=== PATIENT | male | born 1940 | race Caucasian/White ===

== ENCOUNTER 2019-06-13 21:12 | Emergency (ER) | payer MEDICARE ==
[2019-06-13] MEDS ORDERED: DIPH,PERTUS(ACELL)TETVAC-LF 0.5 ML VIAL IM ONE (21:52)
[2019-06-13] MEDS ORDERED: LIDOCAINE 1% INJ 10MG/ML (20 ML MDV) SQ STA (21:53)
--- NOTE | 2019-06-13 22:17 | CT ---
EXAMINATION TYPE: CT brain luisito perez DATE OF EXAM: 06/13/2019 COMPARISON: None HISTORY: Pt fall, laceration bridge of nose CT DLP: 1341.4 mGycm Automated exposure control for dose reduction was used. TECHNIQUE: CT scan of the head and cervical spine are performed without contrast. FINDINGS: There is mild cerebral cortical atrophy. There is no mass effect nor midline shift. There is no sign of intracranial hemorrhage. The calvarium is intact. There is normal alignment of the cervical vertebra. There is degenerative disc space from C3 to C7 wi th spurring of the endplates. Facet joints are intact. There is mild hypertrophic facet arthropathy. Skull base is intact. There is no evidence of a fracture. IMPRESSION: Spondylotic changes in the cervical spine. No fracture. Mild cerebral atrophy. No acute intracranial abnormality.
--- NOTE | 2019-06-13 22:25 | CT ---
EXAMINATION TYPE: CT facial bones wo con DATE OF EXAM: 06/13/2019 COMPARISON: None HISTORY: Pt fall, laceration bridge of nose CT DLP: 1341.4 mGycm Automated exposure control for dose reduction was used. TECHNIQUE: CT scan of the sinuses is performed without contrast, axial images are obtained, coronal r eformatted images are also reviewed. FINDINGS: The mandibular ring appears intact. Temporomandibular joints appear normal. The orbital mar gins are intact. There is no evidence of a blowout fracture. There is comminuted fracture the anterio r nasal bone. There is mild depression. The zygomatic arches are intact. The maxilla is intact. There is minimal mucosal thickening posterior right maxillary sinus. There is no evidence of orbital mass. There is soft tissue swelling over the frontal bone. IMPRESSION: Comminuted nasal bone fracture. Frontal scalp soft tissue swelling.
[2019-06-13] MEDS ORDERED: ACET/COD 300 MG/30 MG STARTER PACK 6 TAB BTL PO STA (23:34)
--- NOTE | 2019-06-13 23:35 | ED ---
General Adult HPI - General Chief complaint: Head Injury Stated complaint: Facial Lac Time Seen by Provider: 06/13/19 21:34 Source: patient, family, RN notes reviewed, old records reviewed Mode of arrival: ambulatory Limitations: no limitations - History of Present Illness Initial comments: 78-year-old male patient no pertinent past medical history presents to chief complaint of fall with laceration of the bridge of nose. He reports that he was walking in the dark, stumbled, fell forward hitting the bridge of his nose on a trailer hitch. Patient hasn't loss of consciousness. Patient denies any similar blood thinners. Patient denies any other complaints at this time. Denies any headache, changes in vision, neck pain. Patient does not know date of last tetanus. Systemic: Pt denies fatigue, fever/chills, rash. Pt denies weakness, night sweats, weight loss. Neuro: Pt denies headache, visual disturbances, syncope or pre-syncope. HEENT: Pt denies ocular discharge or irritation, otalgia, rhinorrhea, pharyngitis or notable lymphadenopathy. Cardiopulmonary: Pt denies chest pain, SOB, heart palpitations, dyspnea on exertion. Abdominal/GI: Pt denies abdominal pain, n/v/d. : Pt denies dysuria, burning w/ urination, frequency/urgency. Denies new onset urinary or bowel incontinence. MSK: Pt denies myalgia, loss of strength or function in extremities. Neuro: Pt denies new onset weakness, paresthesias. - Related Data Previous Rx's Medication Instructions Recorded Amoxicillin/Potassium Clav 1 each PO Q12HR 14 Days #7 tab 06/13/19 [Augmentin 875-125 Tablet] Allergies Allergy/AdvReac Type Severity Reaction Status Date / Time No Known Allergies Allergy Verified 06/13/19 21:20 Review of Systems ROS Statement: Those systems with pertinent positive or pertinent negative responses have been documented in the HPI. ROS Other: All systems not noted in ROS Statement are negative. Past Medical History Past Medical History: Diabetes Mellitus, Hypertension History of Any Multi-Drug Resistant Organisms: None Reported Past Surgical History: Adenoidectomy, Appendectomy, Cholecystectomy, Orthopedic Surgery, Tonsillectomy Additional Past Surgical History / Comment(s): eye lid surgery Past Psychological History: No Psychological Hx Reported Past Alcohol Use History: Occasional Past Drug Use History: None Reported General Exam - General Exam Comments Initial Comments: Constitutional: NAD, AOX3, Pt has pleasant affect. HEENT: NC/AT, trachea midline, neck supple, no lymphadenopathy. Posterior pha rynx non erythematous, without exudates. External ears appear normal, without discharge. Mucous membranes moist. Eyes PERRLA, EOM intact. There is no scleral icterus. No pallor noted. Cardiopulmonary: RRR, no murmurs, rubs or gallops, no JVD noted. Lungs CTAB in anterior and posterior red[place]. No peripheral edema. Abdominal exam: Abdomen soft and non-distended. Abdomen non-tender to palpation in all 4 quadrants. Bowel sounds active in LLQ. No hepatosplenomegaly. No ecchymosis Neuro: CN II-XII intact. No nuchal rigidity. No raccon eyes, no lane sign, no hemotympanum. No cervical spinal tenderness. MSK: No posterior calf tenderness bilaterally, homans sign negative bilaterally. Posterior tibialis and radial pulse +2 bilaterally. Sensation intact in upper and lower extremities. Full active ROM in upper and lower extremities, 5/5 stregnth. 2 cm laceration noted to bridge of nose. Vigorously irrigated. Approximated with 3 simple interrupted sutures. No septal hematoma. Limitations: no limitations Course Vital Signs 06/13/19 21:14 Temperature 98.5 F Pulse Rate 76 Respiratory 20 Rate Blood Pressure 187/85 O2 Sat by Pulse 95 Oximetry Procedures - Laceration Laceration #1 Consent Obtained: verbal consent Indication: laceration Site: face (bridge of nose ) Size (cm): 2 Description: linear Depth: simple, single layer Anesthetic Used: lidocaine 1% Anesthesia Technique: local infiltration Amount (mls): 2 Pre-repair: wound explored, irrigated extensively Type of Sutures: nylon Size of Sutures: 5-0 Number of Sutures: 3 Patient Tolerated Procedure: well, no complications Medical Decision Making - Medical Decision Making 78-year-old male patient no pertinent past medical history presents to chief complaint of fall with laceration of the bridge of nose. He reports that he was walking in the dark, stumbled, fell forward hitting the bridge of his nose on a trailer hitch. Patient hasn't loss of consciousness. Patient denies any similar blood thinners. Patient denies any other complaints at this time. Denies any headache, changes in vision, neck pain. Patient does not know date of last tetanus. Pt VSS, afebrile. Physical exam displayed: 2 cm laceration noted to bridge of nose. Vigorously irrigated. Approximated with 3 simple interrupted sutures. No septal hematoma. CT brain C-spine displayed no fracture, no acute intracranial abnormality. Elevated nasal bone fracture on facial bone CT. CT facial bones with comminuted nasal bone fracture, frontal scalp soft tissue swelling. Patient will be discharged with ENT follow-up tomorrow on antibiotics. Case discussed with Dr. Villalta. Disposition Clinical Impression: Nasal fracture, Laceration Disposition: HOME SELF-CARE Condition: Stable Additional Instructions: Patient to adhere to previously discussed treatment plan and will take medication(s) as directed. Patient to follow up with PCP in 1-2 days. Patient to return to ED if symptoms do not improve. Follow-up with ENT tomorrow. Take Antibiotics as directed. No nose blowing. Return to ER if condition worsens. Please return for suture removal: Hand: 7-10 days Face: 5 days Chest/abdomen: 12-14 days Extremities: 7-10 days Scalp: 7 days Eyebrow: 5-7 days Foot/sole: 12-14 days Please monitor for signs and symptoms of infection including: redness, warmth, drainage, discharge. Please return to ED if these signs or symptoms occur, new signs or symptoms develop or if condition worsens in anyway. Prescriptions: Amoxicillin/Potassium Clav [Augmentin 875-125 Tablet] 1 each PO Q12HR 14 Days #7 tab Is patient prescribed a controlled substance at d/c from ED?: No Referrals: Gloria Umaña MD [Primary Care Provider] - 1-2 days Price Gray MD [STAFF PHYSICIAN] - 1-2 days
--- NOTE | 2019-06-13 23:45 | ED ---
Disposition Clinical Impression: Nasal fracture, Laceration Disposition: HOME SELF-CARE Condition: Stable Instructions (If sedation given, give patient instructions): Nasal Fracture (ED), Laceration (ED) Additional Instructions: Patient to adhere to previously discussed treatment plan and will take medication(s) as directed. Patient to follow up with PCP in 1-2 days. Patient to return to ED if symptoms do not improve. Follow-up with ENT tomorrow. Take Antibiotics as directed. No nose blowing. Return to ER if condition worsens. Please return for suture removal: Hand: 7-10 days Face: 5 days Chest/abdomen: 12-14 days Extremities: 7-10 days Scalp: 7 days Eyebrow: 5-7 days Foot/sole: 12-14 days Please monitor for signs and symptoms of infection including: redness, warmth, drainage, discharge. Please return to ED if these signs or symptoms occur, new signs or symptoms develop or if condition worsens in anyway. Prescriptions: Amoxicillin/Potassium Clav [Augmentin 875-125 Tablet] 1 each PO Q12HR 14 Days #7 tab Is patient prescribed a controlled substance at d/c from ED?: No Referrals: Gloria Umaña MD [Primary Care Provider] - 1-2 days Price Gray MD [STAFF PHYSICIAN] - 1-2 days
[2019-06-14 00:03] VITALS: BP 171/77; PULSE 74; RESP 18; TEMP 97.7
== END 2019-06-14 00:02 | disposition home or self-care (01) ==
LOC: EC 21:12
DX: S02.2XXA Fracture of nasal bones, initial encounter for closed fracture (principal); S01.21XA Laceration without foreign body of nose, initial encounter; W01.198A Fall on same level from slipping, tripping and stumbling with subsequent striking against other object, initial encounter; Y93.01 Activity, walking, marching and hiking
CPT/HCPCS: 72125; 70486; 70450; 90715; 99284; 12011; 90471; J2001

== ENCOUNTER → 2022-04-29 | Outpatient (CLI) | payer MEDICARE ==
[2022-04-29 14:31] LABS: HCT 33.6 % (39.6-50.0); HGB 10.7 g/dL (13.0-17.0); MCH 30.7 pg (27.0-32.0); MCHC 31.8 g/dL (32.0-37.0); MCV 96.6 fL (80.0-97.0); Mean Platelet Volume 11.6 fL (9.5-12.2); NRBC Per 100 WBC 0 /100 WBCS (0.0-0.0); Platelet Count 177 X 10*3/uL (140-440); RBC 3.48 X 10*6/uL (4.40-5.60); RDW 14.5 % (11.5-14.5)
[2022-04-29 14:44] LABS: African American GFR (CKD) 49.5 (60.0-200.0); Anion Gap 9.5 mmol/L (10.00-18.00); Blood Urea Nitrogen 26.8 mg/dL (9.0-27.0); Carbon Dioxide 27.7 mmol/L (20.0-27.5); Non-African American GFR(CKD) 42.7 (60.0-200.0); Potassium 4.8 mmol/L (3.5-5.5)
== END | disposition home or self-care (01) ==
LOC: LABPAT 09:31
PROVIDERS: ATTEND Internal Medicine
DX: Z01.812 Encounter for preprocedural laboratory examination (principal); I11.0 Hypertensive heart disease with heart failure; I50.32 Chronic diastolic (congestive) heart failure; E78.2 Mixed hyperlipidemia; R06.02 Shortness of breath
CPT/HCPCS: 80051; 82565; 84520; 85027

== ENCOUNTER → 2023-01-15 | Outpatient (CLI) | payer MEDICARE ==
--- NOTE | 2023-01-15 15:26 | MR ---
EXAMINATION TYPE: MR kidney wo con DATE OF EXAM: 01/15/2023 COMPARISON: Outside renal ultrasound May 07, 2022 HISTORY: Stage 3 kidney disease, abnormal recent ultrasound Standard multiplanar, multisequence MRI departmental protocol Multiplanar, multisequence images of the abdomen focusing on the kidneys were acquired without contra st. Diffusion weighted imaging was performed. FINDINGS: Exam suboptimal as the patient has unable to hold breath for ideal imaging. Also suboptimal due to lack of IV contrast. Kidneys: Kidneys are symmetric and within normal limits in size with areas of cortical thinning seen bilaterally. There are central simple appearing thin-walled parapelvic cysts in the right kidney. No concerning solid or cystic right-sided renal mass or hydronephrosis seen on noncontrast images. Left kidney shows mild pyelocaliectasis with additional anterior partially exophytic 1.7 x 1.2 cm thin-wal led cyst. No concerning lower pole measured 2.5 cm solid or cystic mass identified on this study. Mil d to moderate perinephric fluid bilaterally is noted, this is nonspecific but presumed product of chr onic medical renal disease. Other: Slightly elevated right hemidiaphragm. Gallbladder not seen and presumed surgically absent. Th e liver, spleen, pancreas, and both adrenal glands appear within normal limits. No abnormal small or large bowel dilatation. Some diverticula scattered throughout the colon are present. No greater than 3.0 cm AAA. Multilevel spurring in the thoracolumbar spine is seen IMPRESSION: Persistent mild left-sided hydronephrosis. Evidence of chronic medical renal disease rede monstrated. No concerning solid or cystic mass between 2 to 3 cm with particular attention to the low er pole left kidney at the area of concern on outside ultrasound.
== END | disposition home or self-care (01) ==
LOC: RADMRIMAIN 12:35
PROVIDERS: ATTEND Urology
DX: D41.02 Neoplasm of uncertain behavior of left kidney (principal); N13.30 Unspecified hydronephrosis; N28.89 Other specified disorders of kidney and ureter
CPT/HCPCS: 74181

== ENCOUNTER → 2023-07-15 | Outpatient (CLI) | payer MEDICARE ==
--- NOTE | 2023-07-15 15:54 | US ---
EXAMINATION TYPE: US kidneys/renal and bladder DATE OF EXAM: 07/15/2023 COMPARISON: NONE CLINICAL INDICATION: Male, 82 years old with history of N28.1 CYST OF KIDNEY; History of renal cyst EXAM MEASUREMENTS: Right Kidney: 10.1 x 4.7 x 4.7 cm Left Kidney: 12.0 x 6.0 x 4.6 cm Right Kidney: parapelvic cystic lesions Left Kidney: parapelvic cystic lesions Bladder: not fully distended Bilateral Jets seen: no IMPRESSION: Bilateral peripelvic cysts. Hydronephrosis is not evident.
== END | disposition home or self-care (01) ==
LOC: RADUSWWP 15:05
PROVIDERS: ATTEND Urology
DX: N28.1 Cyst of kidney, acquired (principal)
CPT/HCPCS: 76770

== ENCOUNTER 2023-07-20 18:23 | Inpatient (IN) | payer MEDICARE ==
--- NOTE | 2023-07-20 18:43 | XR ---
EXAMINATION TYPE: XR chest 1V portable DATE OF EXAM: 07/20/2023 6:37 PM CLINICAL INDICATION:Male, 82 years old with history of stemi; PH[facility] COMPARISON: None TECHNIQUE: XR chest 1V portable Frontal view of the chest. FINDINGS: Lungs/Pleura: Elevated right diaphragm. There is flattening of the diaphragm with increased lucency o f the lungs. No evidence of pneumothorax, pleural effusion or focal consolidation. Pulmonary vascularity: Unremarkable. Heart/mediastinum: Cardiomediastinal silhouette is enlarged and stable. Atherosclerotic calcificatio ns are seen in the aorta. Musculoskeletal: Degenerative changes of the shoulder joints. IMPRESSION: 1. Cardiomegaly. 2. Elevated right diaphragm with associated atelectasis. 3. COPD changes.
[2023-07-20] MEDS ORDERED: HEPARIN SODIUM 1,000 UN/ML (10ML VL) ONE (18:47)
[2023-07-20] MEDS ORDERED: VERAPAMIL 2.5 MG/ML 2 ML AMP ONE (18:47)
[2023-07-20] MEDS ORDERED: LIDOCAINE 1% INJ 10MG/ML (20 ML MDV) ONE (18:50)
[2023-07-20] MEDS ORDERED: HEPARIN SODIUM 1,000 UN/ML (10ML VL) IV ONE (19:09)
--- NOTE | 2023-07-20 19:16 | CT ---
EXAMINATION TYPE: CT brain cspine wo con CT DLP: 1392.1 mGycm, Automated exposure control for dose reduction was used. DATE OF EXAM: 07/20/2023 7:11 PM COMPARISON: 06/13/2019 CLINICAL INDICATION:Male, 82 years old with history of head injury; Abnormal EKG, fall with head inju ry, TECHNIQUE: Brain: Multiple axial CT images of the brain were obtained without IV contrast. Cspine: Axial CT images from the skull base to the inferior aspect of T2 we obtained without intraven ous contrast. Coronal and sagittal reformatted images were also reviewed. FINDINGS: Brain: Extra-axial spaces: No abnormal extra-axial fluid collections. Ventricular system: Within normal limits Cerebral parenchyma: Cerebral atrophy. No acute intraparenchymal hemorrhage or mass effect. The gardiner -white junction is well differentiated. Scattered hypoattenuating areas are seen within the white mat ter. Cerebellum: Unremarkable. Mass effect: No evidence of midline shift. Intracranial vasculature: Atherosclerotic calcifications of the intracranial vessels. Soft tissues: Normal. Calvarium/osseous structures: No depressed skull fracture. Paranasal sinuses and mastoid air cells: Clear. Visualized orbits: Bilateral aphakia Cervical spine: Fracture: None. Osseous structures: Multilevel degenerative disc disease changes with endplate spurring and disc oste ophyte complex's. Vertebral alignment: Within normal limits. Spinal canal/Neural Foramina: Disc osteophyte complexes at C3-C7 with at least mild spinal canal sten osis. Facet joint uncovertebral joint arthropathy scattered throughout the cervical spine with varyin g degrees of neural foraminal stenosis. Neck soft tissues: Prevertebral soft tissues are within normal limits. IMPRESSION: 1. No acute intracranial process. 2. Nonspecific white matter changes, likely secondary to chronic small vessel ischemic disease. 3. No evidence of cervical spine fracture. 4. Mild to moderate multilevel degenerative disc disease.
[2023-07-20 19:22] LABS: Partial Thromboplastin Time 25.5 sec (22.0-30.0); Prothrombin Time 11.2 sec (10.0-12.5)
[2023-07-20 19:25] LABS: ALT 18 U/L (4-49); AST 22 U/L (17-59); African American GFR (CKD) 59 (>60 ml/min/1.73 sqM); Albumin 3.6 g/dL (3.5-5.0); Alkaline Phosphatase 77 U/L (38-126); Anion Gap 11 mmol/L; Blood Urea Nitrogen 19 mg/dL (9-20); Calcium 8.5 mg/dL (8.4-10.2); Carbon Dioxide 23 mmol/L (22-30); Chloride 103 mmol/L (98-107); Glucose 167 mg/dL (74-99); Magnesium 1.7 mg/dL (1.6-2.3); Non-African American GFR(CKD) 51 (>60 ml/min/1.73 sqM); Potassium 3.6 mmol/L (3.5-5.1); Sodium 137 mmol/L (137-145); Total Bilirubin 1.1 mg/dL (0.2-1.3); Total Protein 6.3 g/dL (6.3-8.2)
--- NOTE | 2023-07-20 19:34 | P.CRDCN ---
History of Present Illness Consult date: 07/20/23 History of present illness: History of Present Illness: The patient is an 82-year-old male with a known history of diabetes and hyperlipidemia, history of CAD who presented with an episode of weakness. He was walking back from his garage when he became suddenly weak, eased himself down to the ground,, hit his head. EMS was called and the patient was brought to the emergency room. He had no chest discomfort, he was hypoxemic. He did not feel any palpitations. He recently had some cough and chills. Apparently his granddaughter had an upper respiratory infection. In the ER his EKG showed sinus mechanism with right bundle branch block and mild ST segment changes anteriorly, subsequent EKG shows right bundle branch block with no significant ST segment changes. Patient is laying supine, comfortable, denied any chest discomfort. When he had the cardiac catheterization in April [address] Kelly he was found to have heavily calcified coronary artery disease with 40% left main, mid LAD 80%, 40% left circumflex with heavily calcified diffuse disease in the RCA with area of stenosis up to 90% and occluded PDA. Medical therapy was recommended. Patient has done relatively well since that time and has been stable. In the emergency room his chest x-ray showed elevated right hemidiaphragm with atelectasis. Computed tomography scan of the head showed no acute bleeding. The patient has a history of hypertension, hyperlipidemia and diabetes, he is a nonsmoker. Medications: Lotrel 1040 milligrams daily Actos, metoprolol succinate 25 mg daily, Lipitor 10 mg daily, aspirin once a day, Lasix 20 mg daily, omeprazole, Flomax, metformin. Review of Systems: Respiratory: He has a cough and mild fever at home GI: No nausea or vomiting . No history of peptic ulcer disease. No recent GI bleed. : No hematuria or dysuria. Nervous System: No stroke or seizure. Physical Examination: 82-year-old male, alert and oriented no apparent distress,Blood pressure 140/90, Heart rate 60 Head: Normocephalic. Eyes: Sclerae nonicteric. Neck: Good carotid upstroke, no bruit, no jugular venous distention. Lungs: Decreased breath sounds at the right base, no wheezes Heart: Regular rate and rhythm, S1-S2, no S3, no rub. Systolic ejection murmur. Abdomen: Soft nontender, positive bowel sounds no organomegaly. Extremities: No edema, intact distal pulses. Varicosity Labs: Pending EKG: Right bundle branch block with left axis deviation and mild ST segment elevation anteriorly that resolved on subsequent EKG Impression: 1. Episode of weakness his hypoxemia and elevated right hemidiaphragm, possible atelectasis, rule out pneumonia 2. Abnormal EKG with no associated chest discomfort 3. Known history of CAD with severe coronary artery calcifications, felt not to be a good candidate for percutaneous revascularization 4. History of diabetes 5. History of hypertension 6. History of hyperlipidemia Plan: 1. I discussed the findings in detail with the patient and his family as well as with the emergency room physician. At this time in view of the fact that his EKG subsequently showed only right bundle branch block that was noted in the past with no associated chest discomfort I would recommend to continue medical therapy and observe for any symptoms 2. Initiate heparin 3. Obtain an echocardiogram Doppler 4. Serial enzymes 5. Depending on his progress further recommendations will be made, thank you for this consult we will follow with you. Past Medical History Past Medical History: Diabetes Mellitus, Hypertension Additional Past Medical History / Comment(s): POSSIBLE CVA 2007-NO DEFICITS History of Any Multi-Drug Resistant Organisms: None Reported Past Surgical History: Adenoidectomy, Appendectomy, Cholecystectomy, Orthopedic Surgery, Tonsillectomy Additional Past Surgical History / Comment(s): eye lid surgery Past Anesthesia/Blood Transfusion Reactions: No Reported Reaction Past Psychological History: No Psychological Hx Reported Smoking Status: Former smoker Past Alcohol Use History: Occasional Past Drug Use History: None Reported - Past Family History Brother(s) Family Medical History: Cancer Medications and Allergies Home Medications Medication Instructions Recorded Confirmed Type Ascorbic Acid [Vitamin C] 500 mg PO DAILY 04/29/22 03/10/23 History Aspirin [Adult Low Dose Aspirin EC] 81 mg PO DAILY 04/29/22 03/10/23 History Atorvastatin [Lipitor] 10 mg PO HS 04/29/22 03/10/23 History Cranberry Fruit Extract [Cranberry] 1,500 mg PO DAILY 04/29/22 03/10/23 History Cyanocobalamin (Vitamin B-12) 5,000 mcg PO DAILY 04/29/22 03/10/23 History [Vitamin B-12] Furosemide [Lasix] 20 mg PO DAILY 04/29/22 03/10/23 History Gabapentin 300 mg PO TID 04/29/22 03/10/23 History Glimepiride [Amaryl] 2 mg PO [id number] 04/29/22 03/10/23 History Magnesium Citrate. 100 mg PO DAILY 04/29/22 03/10/23 History Metoprolol Succinate (ER) [Toprol 25 mg PO DAILY 04/29/22 03/10/23 History Xl] Omeprazole 20 mg PO BID 04/29/22 03/10/23 History Pioglitazone [Actos] 15 mg PO DAILY 04/29/22 03/10/23 History Potassium Gluconate [Potassium 99 mg PO DAILY 04/29/22 03/10/23 History Gluconate ER] Tamsulosin [Flomax] 0.8 mg PO HS 04/29/22 03/10/23 History Vitamin B Complex 1 each PO DAILY 04/29/22 03/10/23 History amLODIPine BESYLATE/BENAZEPRIL 1 cap PO DAILY 04/29/22 03/10/23 History [amLODIPine BESYLATE/BENAZEPRIL 10-40 mg] metFORMIN HCL 1,000 mg PO BID 04/29/22 03/10/23 History Allergies Allergy/AdvReac Type Severity Reaction Status Date / Time No Known Allergies Allergy Verified 07/20/23 18:31 Physical Exam Vitals: Vital Signs Temp Pulse Pulse Resp BP Pulse Ox 07/20/23 19:13 63 18 140/97 98 07/20/23 19:08 63 18 148/104 96 07/20/23 19:03 63 18 129/79 98 07/20/23 18:58 70 18 130/76 97 07/20/23 18:53 64 18 138/68 96 07/20/23 18:48 70 18 128/76 96 07/20/23 18:46 71 07/20/23 18:43 70 18 95 07/20/23 18:39 67 18 117/91 96 07/20/23 18:34 67 18 132/102 95 07/20/23 18:25 97.0 F L 65 18 88 L Intake and Output 07/20/23 07/20/23 07/20/23 06:59 14:59 22:59 Other: Weight 99.79 kg Results Coagulation 07/20/23 Range/Units 18:44 PT 11.2 (10.0-12.5) sec APTT 25.5 (22.0-30.0) sec Current Medications Generic Name Dose Route Start Last Admin Trade Name Freq PRN Reason Stop Dose Admin Heparin Sodium (Porcine) 0 unit 07/20/23 19:09 Heparin Sodium 1,000 Un/Ml (10ml Vl) IV PER PROTOCOL PRN Low PTT Protocol Heparin Sodium/Sodium Chloride 250 mls @ 10 mls/hr 07/20/23 19:15 25,000 unit/ Sodium Chloride IV .Q24H [facility] Protocol Intake and Output 07/20/23 07/20/23 07/20/23 06:59 14:59 22:59 Other: Weight 99.79 kg Patient Weight 07/21/23 06:59 Weight 99.79 kg
--- NOTE | 2023-07-20 19:42 | ED ---
General Adult HPI - General Chief complaint: Arrhythmia/Palpitations Stated complaint: STEMI Time Seen by Provider: 07/20/23 18:25 Source: patient Mode of arrival: EMS Limitations: no limitations - History of Present Illness Initial comments: 82-year-old male with past medical history of coronary artery disease, diabetes, hypertension who presents to the emergency department after he had a fall at home. EMS states that the patient was ambulating from the garage into the house when he ended up having an episode of weakness. His legs gave out from beneath him and he fell to the floor hitting his head on the carpet. He denies completely losing consciousness. He was unable to get himself up and therefore he called his family. Family is unaware how long he had been on the ground but they do feel as if it was for an extended period of time. EMS found the patient to have oxygen saturation saturations of 73%. They completed an EKG which looked like a STEMI. Patient has no complaints of chest pain. He does report to some shortness of breath. States that he started having some cold-like symptoms on Friday. States that he does have sick contacts with similar symptoms. He does have history of coronary disease. Heart cath in April 2020 demonstrated significant disease without any stent placement. Patient denies any lower from the edema. No history of heart failure. No other alleviating, precipitating or modifying factors - Related Data Home Medications Medication Instructions Recorded Confirmed Atorvastatin [Lipitor] 10 mg PO HS 04/29/22 07/20/23 Furosemide [Lasix] 20 mg PO DAILY 04/29/22 07/20/23 Gabapentin 300 mg PO TID 04/29/22 07/20/23 Glimepiride [Amaryl] 2 mg PO DAILY 04/29/22 07/20/23 Metoprolol Succinate (ER) [Toprol 25 mg PO DAILY 04/29/22 07/20/23 Xl] Omeprazole 20 mg PO BID 04/29/22 07/20/23 Pioglitazone [Actos] 15 mg PO DAILY 04/29/22 07/20/23 Tamsulosin [Flomax] 0.8 mg PO HS 04/29/22 07/20/23 amLODIPine BESYLATE/BENAZEPRIL 1 cap PO DAILY 04/29/22 07/20/23 [amLODIPine BESYLATE/BENAZEPRIL 10-40 mg] metFORMIN HCL 1,000 mg PO BID 04/29/22 07/20/23 Dulaglutide [Trulicity] 1.5 mg SQ RIDLEY 07/20/23 07/20/23 Insulin Glargine,Hum.rec.anlog 6 units SQ DAILY@1700 07/20/23 07/20/23 [Lantus Solostar Pen] traZODone HCL [Desyrel] 50 mg PO HS PRN 07/20/23 07/20/23 Allergies Allergy/AdvReac Type Severity Reaction Status Date / Time No Known Allergies Allergy Verified 07/20/23 20:02 Review of Systems ROS Statement: Those systems with pertinent positive or pertinent negative responses have been documented in the HPI. ROS Other: All systems not noted in ROS Statement are negative. Past Medical History Past Medical History: Diabetes Mellitus, Hypertension Additional Past Medical History / Comment(s): POSSIBLE CVA 2007-NO DEFICITS History of Any Multi-Drug Resistant Organisms: None Reported Past Surgical History: Adenoidectomy, Appendectomy, Cholecystectomy, Orthopedic Surgery, Tonsillectomy Additional Past Surgical History / Comment(s): eye lid surgery Past Anesthesia/Blood Transfusion Reactions: No Reported Reaction Past Psychological History: No Psychological Hx Reported Smoking Status: Former smoker Past Alcohol Use History: Occasional Past Drug Use History: None Reported - Past Family History Brother(s) Family Medical History: Cancer General Exam Limitations: no limitations General appearance: alert, in no apparent distress Head exam: Present: atraumatic, normocephalic, normal inspection Eye exam: Present: normal appearance, PERRL, EOMI. Absent: scleral icterus, conjunctival injection, periorbital swelling ENT exam: Present: normal exam, mucous membranes moist Neck exam: Present: normal inspection. Absent: tenderness, meningismus, lymphadenopathy Respiratory exam: Present: normal lung sounds bilaterally. Absent: respiratory distress, wheezes, rales, rhonchi, stridor Cardiovascular Exam: Present: regular rate, normal rhythm, normal heart sounds. Absent: systolic murmur, diastolic murmur, rubs, gallop, clicks GI/Abdominal exam: Present: soft, normal bowel sounds. Absent: distended, tenderness, guarding, rebound, rigid Extremities exam: Present: normal inspection, full ROM, normal capillary refill. Absent: tenderness, pedal edema, joint swelling, calf tenderness Back exam: Present: normal inspection Neurological exam: Present: alert, oriented X3, CN II-XII intact Psychiatric exam: Present: normal affect, normal mood Skin exam: Present: warm, dry, intact, normal color. 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 ] Respiratory 18 18 Rate Blood Pressure 128/76 O2 Sat by Pulse 95 96 Oximetry Fraction of Inspired Oxygen (FIO2) 07/20/23 07/20/23 07/20/23 18:53 18:58 19:03 Temperature Pulse Rate 64 70 63 Pulse Rate [ [employer] Professor ] Respiratory 18 18 18 Rate Blood Pressure 138/68 130/76 129/79 O2 Sat by Pulse 96 97 98 Oximetry Fraction of Inspired Oxygen (FIO2) 07/20/23 07/20/23 07/20/23 19:08 19:13 20:00 Temperature Pulse Rate 63 63 75 Pulse Rate [ [employer] Professor ] Respiratory 18 18 22 Rate Blood Pressure 148/104 140/97 141/71 O2 Sat by Pulse 96 98 93 L Oximetry Fraction of Inspired Oxygen (FIO2) 07/20/23 07/20/23 07/21/23 20:45 22:00 00:41 Temperature Pulse Rate 56 L 60 Pulse Rate [ [employer] Professor ] Respiratory 16 17 Rate Blood Pressure 145/71 139/74 O2 Sat by Pulse 97 97 Oximetry Fraction of 100 Inspired Oxygen (FIO2) 07/21/23 07/21/23 07/21/23 01:00 01:10 02:00 Temperature 97.4 F L Pulse Rate 54 L 54 L 40 L Pulse Rate [ [employer] Professor ] Respiratory 28 H 18 15 Rate Blood Pressure 143/92 128/73 87/50 O2 Sat by Pulse 94 L 93 L 97 Oximetry Fraction of 100 Inspired Oxygen (FIO2) - Reevaluation(s) Reevaluation #1: WESTON Matthews - ICU aware 07/20/23 22:35 Medical Decision Making - Medical Decision Making Was pt. sent in by a medical professional or institution (MIRIAM Santiago, BOX REPAIRER, urgent care, hospital, or senior living...) When possible be specific @ -No Did you speak to anyone other than the patient for history (EMS, parent, family, police, friend...)? What history was obtained from this source @ -EMS provide history Did you review nursing and triage notes (agree or disagree)? Why? @ -I reviewed and agree with nursing and triage notes Were old charts reviewed (outside hosp., previous admission, EMS record, old EKG, old radiological studies, urgent care reports/EKG's, senior living records)? Report findings @ -I reviewed patient's heart cath from April 2022 Differential Diagnosis (chest pain, altered mental status, abdominal pain women, abdominal pain men, vaginal bleeding, weakness, fever, dyspnea, syncope, headache, dizziness, GI bleed, back pain, seizure, CVA, palpatations, mental health, musculoskeletal)? @ -Differential Dyspnea: Coronary syndrome, arrhythmia, tamponade, asthma, COPD, pulmonary embolism, pneumonia, pneumothorax, pulmonary effusion, anaphylaxis, diabetic ketoacidosis, flailed chest, pulmonary contusion, diaphragmatic rupture, anemia, neuromusc ular, this is not meant to be an all-inclusive list. EKG interpreted by me (3pts min.). @ - EKG completed at 1829 demonstrates sinus rhythm with a first-degree block. Rate of 64. VA interval 222. QRS 154. QTC 507. ST elevation in V2 through V5, lead 2 and aVF Repeat EKG done at 191 demonstrates sinus rhythm with a rate of 62. QRS 161. QTC 488. ST has normalized. Right bundle-branch block X-rays interpreted by me (1pt min.). @ -Yes and demonstrates elevated right hemidiaphragm with possible right lower lobe infiltrate CT interpreted by me (1pt min.). @ -Yes and does not demonstrate a PE. Concerning for congestive heart failure U/S interpreted by me (1pt. min.). @ -None done What testing was considered but not performed or refused? (CT, X-rays, U/S, labs)? Why? @ -None What meds were considered but not given or refused? Why? @ -None Did you discuss the management of the patient with other professionals (professionals i.e. MIRIAM Santiago, BOX REPAIRER, lab, RT, psych nurse, social science research assistant, certified surgical first assistant, teacher, gunnery/ordnance officer, high risk case manager)? Give summary @ -Spoke with Dr. Edgar who does present to the emergency department to cezar luate the patient. I also spoke with Byron from ICU Was smoking cessation discussed for >3mins.? @ -No Was critical care preformed (if so, how long)? @ -yes, 45 minutes for stemi activation and management Were there social determinants of health that impacted care today? How? (Homelessness, low income, unemployed, alcoholism, drug addiction, transportation, low edu. Level, literacy, decrease access to med. care, group home, rehab)? @ -No Was there de-escalation of care discussed even if they declined (Discuss DNR or withdrawal of care, Hospice)? DNR status @ -No What co-morbidities impacted this encounter? (DM, HTN, Smoking, COPD, CAD, Cancer, CVA, ARF, Chemo, Hep., AIDS, mental health diagnosis, sleep apnea, morbid obesity)? @ -Coronary artery disease Was patient admitted / discharged? Hospital course, mention meds given and route, prescriptions, significant lab abnormalities, going to OR and other pertinent info. @ -Upon arrival patient was placed into trauma 2. Prehospital EKG had been used to activate a STEMI. Evaluating the patient he is hypoxic on room air at 85%. He is placed on 6 L nasal cannula and remains 89%. He is placed on a nonrebreather and saturates 94%. 12-lead EKG was obtained which continues to demonstrate anterior lateral STEMI. He did receive 4 chewable aspirins by EMS. He denies any chest pain. Labs were conducted. Portable chest x-ray was performed. Dr. Edgar does arrive to the emergency department and evaluates the patient. He does recommend heparinizing the patient. As the patient did fall and hit his head he does go for a CT of his head before this. CT is negative for acute process. Heparin was started. Dr. Edgar requests another EKG. He then determinanes that the patient does not need an immediate cath at this time. Recommends admission with cardiology consultation and placement in the ICU. Laboratory studies are reviewed. He is Covid positive. CT was performed which demonstrates possible infiltrate with pulmonary vascular congestion. He was given a dose of Lasix as well as antibiotics. Patient admitted to the ICU. Spoke with Byron Leary from ICU for admission Undiagnosed new problem with uncertain prognosis? @ -yes Drug Therapy requiring intensive monitoring for toxicity (Heparin, Nitro, Insulin, Cardizem)? @ -No Were any procedures done? @ -No Diagnosis/symptom? @ -acute hypoxic resp failure, STEMI, acute covid infection, fall, blunt head trauma Acute, or Chronic, or Acute on Chronic? @ -Acute Uncomplicated (without systemic symptoms) or Complicated (systemic symptoms)? @ -complicated Side effects of treatment? @ -No Exacerbation, Progression, or Severe Exacerbation? @ -No Poses a threat to life or bodily function? How? (Chest pain, [place], [place], pneumonia, PE, COPD, DKA, ARF, appy, cholecystitis, CVA, Diverticulitis, Homicidal, Suicidal, threat to staff... and all critical care pts) @ -yes- patient presents with stemi changes - Lab Data Result diagrams: 07/20/23 18:44 07/20/23 18:44 Lab Results 07/20/23 07/20/23 07/20/23 Range/Units 18:44 18:44 18:44 WBC 6.8 (3.8-10.6) k/uL RBC 3.77 L (4.30-5.90) m/uL Hgb 11.9 L (13.0-17.5) gm/dL Hct 35.8 L (39.0-53.0) % MCV 94.9 (80.0-100.0) fL MCH 31.6 (25.0-35.0) pg MCHC 33.3 (31.0-37.0) g/dL RDW 13.9 (11.5-15.5) % Plt Count 125 L (150-450) k/uL MPV 9.8 Neutrophils % 79 % Lymphocytes % 9 % Monocytes % 9 % Eosinophils % 0 % Basophils % 0 % Neutrophils # 5.3 (1.3-7.7) k/uL Lymphocytes # 0.6 L (1.0-4.8) k/uL Monocytes # 0.6 (0-1.0) k/uL Eosinophils # 0.0 (0-0.7) k/uL Basophils # 0.0 (0-0.2) k/uL PT 11.2 (10.0-12.5) sec INR 1.0 (<1.2) APTT 25.5 (22.0-30.0) sec Sodium 137 (137-145) mmol/L Potassium 3.6 (3.5-5.1) mmol/L Chloride 103 (98-107) mmol/L Carbon Dioxide 23 (22-30) mmol/L Anion Gap 11 mmol/L BUN 19 (9-20) mg/dL Creatinine 1.29 H (0.66-1.25) mg/dL Est GFR (CKD-EPI)AfAm 59 (>60 ml/min/1.73 sqM) Est GFR (CKD-EPI)NonAf 51 (>60 ml/min/1.73 sqM) Glucose 167 H (74-99) mg/dL Calcium 8.5 (8.4-10.2) mg/dL Magnesium 1.7 (1.6-2.3) mg/dL Total Bilirubin 1.1 (0.2-1.3) mg/dL AST 22 (17-59) U/L ALT 18 (4-49) U/L Alkaline Phosphatase 77 (38-126) U/L Troponin I (0.000-0.034) ng/mL NT-Pro-B Natriuret Pep 1800 pg/mL Total Protein 6.3 (6.3-8.2) g/dL Albumin 3.6 (3.5-5.0) g/dL Coronavirus (PCR) (Not Detectd) 07/20/23 07/20/23 07/20/23 Range/Units 18:44 20:50 21:35 WBC (3.8-10.6) k/uL RBC (4.30-5.90) m/uL Hgb (13.0-17.5) gm/dL Hct (39.0-53.0) % MCV (80.0-100.0) fL MCH (25.0-35.0) pg MCHC (31.0-37.0) g/dL RDW (11.5-15.5) % Plt Count (150-450) k/uL MPV Neutrophils % % Lymphocytes % % Monocytes % % Eosinophils % % Basophils % % Neutrophils # (1.3-7.7) k/uL Lymphocytes # (1.0-4.8) k/uL Monocytes # (0-1.0) k/uL Eosinophils # (0-0.7) k/uL Basophils # (0-0.2) k/uL PT (10.0-12.5) sec INR (<1.2) APTT (22.0-30.0) sec Sodium (137-145) mmol/L Potassium (3.5-5.1) mmol/L Chloride (98-107) mmol/L Carbon Dioxide (22-30) mmol/L Anion Gap mmol/L BUN (9-20) mg/dL Creatinine (0.66-1.25) mg/dL Est GFR (CKD-EPI)AfAm (>60 ml/min/1.73 sqM) Est GFR (CKD-EPI)NonAf (>60 ml/min/1.73 sqM) Glucose (74-99) mg/dL Calcium (8.4-10.2) mg/dL Magnesium (1.6-2.3) mg/dL Total Bilirubin (0.2-1.3) mg/dL AST (17-59) U/L ALT (4-49) U/L Alkaline Phosphatase (38-126) U/L Troponin I 0.082 H* 1.810 H* (0.000-0.034) ng/mL NT-Pro-B Natriuret Pep pg/mL Total Protein (6.3-8.2) g/dL Albumin (3.5-5.0) g/dL Coronavirus (PCR) Detected A (Not Detectd) Disposition Clinical Impression: STEMI (ST elevation myocardial infarction), Hypoxia Disposition: ADMITTED IP TO THIS HOSP Condition: Serious Is patient prescribed a controlled substance at d/c from ED?: No Time of Disposition: 22:07 Decision to Admit Reason: Admit from EC Decision Date: 07/20/23 Decision Time: 22:08
[2023-07-20 19:55] LABS: Basophils % (A) 0 %; Eosinophils % (A) 0 %; HCT 35.8 % (39.0-53.0); HGB 11.9 gm/dL (13.0-17.5); Lymphocytes # (A) 0.6 k/uL (1.0-4.8); Lymphocytes % (A) 9 %; MCH 31.6 pg (25.0-35.0); MCHC 33.3 g/dL (31.0-37.0); MCV 94.9 fL (80.0-100.0); Mean Platelet Volume 9.8; Monocytes # (A) 0.6 k/uL (0-1.0); Monocytes % (A) 9 %; Neutrophils # (A) 5.3 k/uL (1.3-7.7); Neutrophils % (A) 79 %; Platelet Count 125 k/uL (150-450); RBC 3.77 m/uL (4.30-5.90); RDW 13.9 % (11.5-15.5); WBC 6.8 k/uL (3.8-10.6)
[2023-07-20] MEDS: HEPARIN SOD,PORK IN 0.45% NACL 25,000 UNIT in 0.45% NACL 1 250ML.BAG IV SCH (20:49)
[2023-07-20] MEDS ORDERED: lisinopriL 20 MG TAB PO SCH (21:00)
[2023-07-20] MEDS ORDERED: METOPROLOL TARTRATE 25 MG TAB PO SCH (21:00)
[2023-07-20] MEDS: ATORVASTATIN 40 MG TAB PO SCH (21:36)
[2023-07-20] MEDS ORDERED: AZITHROMYCIN 500 MG in SODIUM CHLORIDE 0.9% 250 ML IVPB STA (21:53)
[2023-07-20] MEDS ORDERED: PNEUMONIA PROTOCOL UTILIZED 1 EACH MISC PO PRN (21:53)
--- NOTE | 2023-07-20 22:01 | CT ---
EXAMINATION TYPE: CT chest angio for PE CT DLP: 454.3 mGycm, Automated exposure control for dose reduction was used. DATE OF EXAM: 07/20/2023 9:27 PM COMPARISON: Chest radiograph from same day. \ CLINICAL INDICATION:Male, 82 years old with history of hypoxia; SOB, hypoxia TECHNIQUE/CONTRAST: CTA scan of the thorax is performed with IV Contrast, patient injected with 70ml mL of Isovue 370, UT P images are created and reviewed these are created on a separate workstation.. FINDINGS: Pulmonary Artery: There is no evidence for a filling defect within the pulmonary vasculature to sugge st acute pulmonary embolism. The pulmonary artery is of normal size. Lungs/Pleura: Intralobular septal thickening. Low lung volumes are present. Airway: There are a few areas that are opacified in the area of consolidation in the right. Heart: The heart is enlarged for size is mitral valve annular cusp patient's. Large severe coronary a rtery calcifications. Vasculature: No evidence of aortic aneurysm. Mediastinum: No gross evidence of adenopathy. Small hiatal hernia. Musculoskeletal: No acute osseous abnormalities, bridging calcifications along the anterior longitudi nal ligament. Soft Tissues: Unremarkable. Lower neck: No significant findings. Upper Abdomen: The gallbladder surgically absent. IMPRESSION: 1. No evidence of pulmonary embolism. 2. Low lung volumes with pulmonary vascular congestion and cardiomegaly, correlate with serum BNP fo r congestive heart failure. 3. Right-sided consolidation changes thought to represent atelectasis. Possibly secondary to retaine d secretions. 4. Cardiomegaly with moderate to severe coronary artery atherosclerosis. 5. Small hiatal hernia. 6. Diffuse idiopathic skeletal hyperostosis.
[2023-07-20 22:23] LABS: NT-Pro-B-Type Natriuretic Pept 1800 pg/mL
[2023-07-21 00:21] LABS: Glucose,Whole Blood 221 mg/dL (70-110)
[2023-07-21 00:38] LABS: Glucose,Whole Blood 220 mg/dL (70-110)
[2023-07-21] MEDS ORDERED: DEXTROSE 50% SYRINGE 50 ML IVP PRN ×2 (00:38)
[2023-07-21] MEDS ORDERED: FUROSEMIDE 10 MG/ML 4 ML VIAL IV STA (00:39)
--- NOTE | 2023-07-21 02:44 | P.CNPUL ---
History of Present Illness Consult date: 07/21/23 Requesting physician: aMnsi Anthony Reason for consult: dyspnea Chief complaint: Weakness, assisted fall, shortness of breath History of present illness: I am seeing this patient in new consultation today 07/21/2023 in the intensive care unit after he was found to be short of breath and hypoxic while in the emergency room. He did test positive for COVID-19. He was also noted to have mild ST elevation in anterior leads on arrival. Patient was started on a heparin infusion, and admitted to the intensive care unit. Patient is an 82-year-old white male with past medical history significant for multivessel coronary artery disease, hypertension, hyperlipidemia, diabetes mellitus. While at home yesterday, he had an assisted fall to the ground. He states that he's been very weak over the last couple days. He states that his legs just "gave out". Denies losing consciousness. Since , he has progressively become more short of breath. Denies history of pulmonary disease. Admits associated cough with white sputum, chest congestion. Denies fevers, chills, wheezing, chest pain. States that his granddaughter did have a cold recently. He did test positive for COVID-19 on arrival. He is not vaccinated for COVID. He is currently lying in bed, on a 15 L nonrebreather, in no acute distress. He is hypoxic with an SpO2 of 86%. Chest CTA was negative for pulmonary embolism. It did show low lung volumes with pulmonary vascular congestion and cardiomegaly. There was also a right hemidiaphragm and right lower lobe infiltrate thought to represent atelectasis, however, superimposed pneumonia is not excluded. NT proBNP was 1800. Troponins elevated at 0.082 and 1.8 so far. EKG changes initially showed mild ST elevation in anterior leads, which improved with subsequent EKGs. There was also a right bundle-branch. Patient denies ever having any chest pain. He was started on a heparin infusion per protocol in the emergency room. Cardiology has evaluated the patient, and has elected medical management at this time. Most recent echocardiogram was from over 1 year ago and showed a preserved ejection fraction of 50-55% and moderate mitral regurgitation. CBC on arrival showed a WBC count of 6.8, hemoglobin 11.9, hematocrit 35.8, platelets 125. Baseline APTT is 25. CMP shows sodium 137, potassium 3.6, chloride 103, serum bicarbonate 23, BUN 19, creatinine 1.29, glucose 167. LFTs not elevated. Patient has been afebrile. Empirically started on a combination of azithromycin and Rocephin. Procalcitonin level ordered. CT of the brain and C-spine did not show any acute intracranial process or evidence of C-spine fracture. Patient will be monitored in the intensive care unit. Review of Systems REVIEW OF SYSTEMS: CONSTITUTIONAL: Denies any recent significant weight loss or weight gain. Denies fevers. EYES: Denies change in vision. EARS, NOSE, MOUTH, THROAT: Denies headaches, denies sore throat. CARDIOVASCULAR: Denies chest pain, palpitations or syncopal episodes. RESPIRATORY: See HPI GASTROINTESTINAL: Denies change in appetite, abdominal pain, nausea and vomiting, or diarrhea GENITOURINARY: Denies hematuria, denies infections. MUSKULOSKELETAL: Denies pain, denies swelling. INTEGUMENTARY: Denies rash, denies eczema. NEUROLOGICAL: Denies recent memory loss, no recent seizure activity. PSYCHIATRIC: Denies anxiety, denies depression. HEMATOLOGIC/LYMPHATIC: Denies anemia, denies enlarged lymph node Past Medical History Past Medical History: Diabetes Mellitus, Hypertension Additional Past Medical History / Comment(s): POSSIBLE CVA 2007-NO DEFICITS History of Any Multi-Drug Resistant Organisms: None Reported Past Surgical History: Adenoidectomy, Appendectomy, Cholecystectomy, Orthopedic Surgery, Tonsillectomy Additional Past Surgical History / Comment(s): eye lid surgery Past Anesthesia/Blood Transfusion Reactions: No Reported Reaction Past Psychological History: No Psychological Hx Reported Smoking Status: Former smoker Past Alcohol Use History: Occasional Past Drug Use History: None Reported - Past Family History Brother(s) Family Medical History: Cancer Medications and Allergies Home Medications Medication Instructions Recorded Confirmed Type Atorvastatin [Lipitor] 10 mg PO HS 04/29/22 07/20/23 History Furosemide [Lasix] 20 mg PO DAILY 04/29/22 07/20/23 History Gabapentin 300 mg PO TID 04/29/22 07/20/23 History Glimepiride [Amaryl] 2 mg PO DAILY 04/29/22 07/20/23 History Metoprolol Succinate (ER) [Toprol 25 mg PO DAILY 04/29/22 07/20/23 History Xl] Omeprazole 20 mg PO BID 04/29/22 07/20/23 History Pioglitazone [Actos] 15 mg PO DAILY 04/29/22 07/20/23 History Tamsulosin [Flomax] 0.8 mg PO HS 04/29/22 07/20/23 History amLODIPine BESYLATE/BENAZEPRIL 1 cap PO DAILY 04/29/22 07/20/23 History [amLODIPine BESYLATE/BENAZEPRIL 10-40 mg] metFORMIN HCL 1,000 mg PO BID 04/29/22 07/20/23 History Dulaglutide [Trulicity] 1.5 mg SQ RIDLEY 07/20/23 07/20/23 History Insulin Glargine,Hum.rec.anlog 6 units SQ DAILY@1700 07/20/23 07/20/23 History [Lantus Solostar Pen] traZODone HCL [Desyrel] 50 mg PO HS PRN 07/20/23 07/20/23 History Allergies Allergy/AdvReac Type Severity Reaction Status Date / Time No Known Allergies Allergy Verified 07/20/23 20:02 Physical Exam Vitals: Vital Signs Temp Pulse Pulse Resp BP Pulse Ox FiO2 07/21/23 01:10 54 L 18 128/73 93 L 07/21/23 01:00 97.4 F L 54 L 28 H 143/92 94 L 100 07/21/23 00:41 100 07/20/23 22:00 60 17 139/74 97 07/20/23 20:45 56 L 16 145/71 97 07/20/23 20:00 75 22 141/71 93 L 07/20/23 19:13 63 18 140/97 98 07/20/23 19:08 63 18 148/104 96 07/20/23 19:03 63 18 129/79 98 07/20/23 18:58 70 18 130/76 97 07/20/23 18:53 64 18 138/68 96 07/20/23 18:48 70 18 128/76 96 07/20/23 18:46 71 07/20/23 18:43 70 18 95 07/20/23 18:39 67 18 117/91 96 07/20/23 18:34 67 18 132/102 95 07/20/23 18:25 97.0 F L 65 18 88 L Intake and Output 07/20/23 07/20/2323 14:59 22:59 06:59 Output Total 0 Balance 0 Output: Urine 0 Other: Voiding Method External Catheter Weight 99.79 kg GENERAL EXAM: Alert, 82-year-old white male, fairly comfortable in no apparent distress. HEAD: Normocephalic and atraumatic EYES: Normal reaction of pupils, equal size. NOSE: Clear with pink turbinates. THROAT: No erythema or exudates. NECK: No masses, no JVD. CHEST: No chest wall deformity. LUNGS: Equal air entry with rhonchi heard throughout and minimal bibasilar inspiratory crackles. On a 15 L nonrebreather with an SpO2 reading 86%. No conversational dyspnea or accessory muscle use.. CVS: S1 and S2 normal with no audible murmur, regular rhythm. No extra heart sounds ABDOMEN: No hepatosplenomegaly, active bowel sounds, no guarding or rigidity. SPINE: No scoliosis or deformity SKIN: Generalized pallor CENTRAL NERVOUS SYSTEM: No focal deficits, tone is normal in all 4 extremities. EXTREMITIES: There is no peripheral edema, clubbing, or cyanosis. Peripheral pulses are intact. Results - Laboratory Findings CBC and BMP: 07/20/23 18:44 07/20/23 18:44 PT/INR, D-dimer PT 11.2 sec (10.0-12.5) 07/20/23 18:44 INR 1.0 (<1.2) 07/20/23 18:44 Abnormal lab findings: Abnormal Labs 07/20/23 07/20/23 07/20/23 18:44 18:44 18:44 RBC 3.77 L Hgb 11.9 L Hct 35.8 L Plt Count 125 L Lymphocytes # 0.6 L Creatinine 1.29 H Glucose 167 H POC Glucose (mg/dL) Troponin I 0.082 H* Coronavirus (PCR) 07/20/23 07/20/23 07/21/23 20:50 21:35 00:14 RBC Hgb Hct Plt Count Lymphocytes # Creatinine Glucose POC Glucose (mg/dL) 221 H Troponin I 1.810 H* Coronavirus (PCR) Detected A 07/21/23 00:37 RBC Hgb Hct Plt Count Lymphocytes # Creatinine Glucose POC Glucose (mg/dL) 220 H Troponin I Coronavirus (PCR) - Diagnostic Findings Chest x-ray: image reviewed CT scan - chest: image reviewed Assessment and Plan Assessment: Acute hypoxemic respiratory failure, currently on 15 L nonrebreather, likely multifactorial, related to suspected exacerbation of diastolic congestive heart failure and acute COVID-19 infection. Chest CTA was negative for pulmonary embolism. It did show low lung volumes with pulmonary vascular congestion and cardiomegaly. There was also a right hemidiaphragm and right lower lobe infiltrate thought to represent atelectasis, however, superimposed pneumonia is not excluded. Acute COVID-[address] elevation [place], being managed by Cardiology, currently on heparin infusion per protocol Multivessel coronary artery disease, recent left heart catheterization 05/02/2022, showed 40% stenosis of the left main, 80% stenosis of the mid LAD, 40% stenosis of left circumflex, 90% stenosis of the RCA, and 100% stenosis of the PDA. No intervention was carried out at that time. Diabetes mellitus2, insulin-dependent Hyperlipidemia Benign essential hypertension Fall Obesity with a BMI of 32.5 kg/m Remote ex-smoker Plan: Patient's medications, labs, imaging reviewed Patient will be transitioned to BiPAP with settings 12/6 and FiO2 100% to be titrated to maintain a SpO2 92% or greater Patient will be given 1 dose of Lasix 40 mg IV once Continue supportive treatment for Covid 19 Start IV Decadron Empirically covered on azithromycin and Rocephin, procalcitonin level pending Continue heparin infusion per protocol Trend troponins Awaiting further cardiology recommendations Fall precautions CT of the brain and C-spine did not show any acute intracranial process or evidence of C-spine fracture. Protonix for GI prophylaxis Start patient on NovoLog subcutaneous insulin to scale and Levemir Patient's overall prognosis is guarded related to above-mentioned comorbidities Patient will be monitored in the intensive care unit I have personally seen and examined the patient, performed the documentation and the assessment and plan as written. Number of minutes spent on the visit:20 Time with Patient: Greater than 30
[2023-07-21] MEDS: HEPARIN SODIUM 1,000 UN/ML (10ML VL) IV PRN (03:05)
[2023-07-21 06:19] LABS: Glucose,Whole Blood 159 mg/dL (70-110)
[2023-07-21] MEDS: INSULIN ASPART (NovoLOG) 100 UNIT/ML VIAL SQ SCH ×4 (06:19→20:59)
[2023-07-21 07:16] LABS: Basophils % (A) 0 %; Eosinophils % (A) 1 %; HCT 33.6 % (39.0-53.0); HGB 11.2 gm/dL (13.0-17.5); Lymphocytes # (A) 0.7 k/uL (1.0-4.8); Lymphocytes % (A) 15 %; MCH 31.8 pg (25.0-35.0); MCHC 33.2 g/dL (31.0-37.0); MCV 95.6 fL (80.0-100.0); Mean Platelet Volume 9.5; Monocytes # (A) 0.4 k/uL (0-1.0); Monocytes % (A) 9 %; Neutrophils # (A) 3.4 k/uL (1.3-7.7); Neutrophils % (A) 73 %; Platelet Count 130 k/uL (150-450); RBC 3.51 m/uL (4.30-5.90); RDW 13.6 % (11.5-15.5); WBC 4.6 k/uL (3.8-10.6)
[2023-07-21 07:23] LABS: INR 1.1 (<1.2); Prothrombin Time 11.6 sec (10.0-12.5)
--- NOTE | 2023-07-21 07:38 | XR ---
EXAMINATION TYPE: XR chest 1V portable DATE OF EXAM: 07/21/2023 COMPARISON: 07/20/2023 INDICATION: Pneumonia TECHNIQUE: Single frontal view of the chest is obtained. FINDINGS: The heart size is normal. The pulmonary vasculature is normal. The lungs are clear. There is chronic elevation of the right diaphragm. IMPRESSION: 1. No acute pulmonary process.
[2023-07-21 08:16] LABS: African American GFR (CKD) 63 (>60 ml/min/1.73 sqM); Anion Gap 9 mmol/L; Blood Urea Nitrogen 20 mg/dL (9-20); Calcium 8.4 mg/dL (8.4-10.2); Carbon Dioxide 27 mmol/L (22-30); Chloride 102 mmol/L (98-107); Glucose 146 mg/dL (74-99); Non-African American GFR(CKD) 54 (>60 ml/min/1.73 sqM); Sodium 138 mmol/L (137-145)
[2023-07-21 08:41] LABS: Chol/HDL Ratio 2.54 Ratio; LDL Cholesterol,Calculated 59.5 mg/dL (0.0-131.0)
[2023-07-21] MEDS: ATORVASTATIN 40 MG TAB PO SCH (09:05)
[2023-07-21] MEDS: ASPIRIN 81 MG PO SCH (09:05)
[2023-07-21] MEDS: lisinopriL 5 MG TAB PO SCH ×2 (09:05→21:00)
[2023-07-21] MEDS: PANTOPRAZOLE 40 MG/10 ML VIAL IVP SCH (09:05)
[2023-07-21] MEDS: DEXAMETHASONE SOD PHOSPHATE 10 MG/ML 1 ML VIAL IVP SCH (09:05)
--- NOTE | 2023-07-21 09:09 | PN ---
PROGRESS NOTE SUBJECTIVE: This is an 82-year-old gentleman, who is admitted to hospital with symptoms of feeling weak, fatigued, and tired. Initially, they felt that there was an acute ST-segment elevation [place], but subsequently the EKG changes had normalized. He has known coronary artery disease, diabetes, dyslipidemia and underwent cardiac catheterization in April of 2022, that revealed 40% left main, 80% mid LAD, 40% circumflex coronary artery with diffuse disease involving the right coronary artery and an occluded PDA. Decision was made for medical therapy at this time and my associate Dr. Edgar evaluated the patient initially, felt that he is better offered with continued medical therapy at this time. Since being admitted, he tested positive for coronavirus infection and is currently in isolation in ICU and he is being treated for COVID with steroids, antibiotics and IV heparin is being continued. At the time of my evaluation this morning, he appears comfortable at rest and is hemodynamically stable and not in distress. A chest x-ray was negative. He had labs that showed a hemoglobin of 11.2, white cell count is 4.6, platelet count is 130. Potassium is 4, creatinine is 1.2. Troponins were at 0.08, 1.8, and 1.9. He has sinus bradycardia, which is something that he developed since his initial admission when he first came to hospital. His heart rate was in the 60s and 70s and currently his heart rate is in the 40s, but he is still in sinus rhythm. I will stop the metoprolol that he is on. He had a CT scan of the chest that was negative for pulmonary embolism. PHYSICAL EXAMINATION: VITAL SIGNS: At the time of my evaluation, heart rate is 43 beats per minute, blood pressure is 118/66, respiratory rate is 12. CHEST: Reveals diminished air entry at the bases. HEART: Reveals first and second heart sounds. No gallop. Has a systolic murmur at the apex. ABDOMEN: Soft. EXTREMITIES: Reveal mild edema. LABORATORY DATA: Show that the hemoglobin is 11.2, platelet count is 130. Potassium is 4, creatinine is 1.2, troponin is 1.9. ASSESSMENT: 1. Acute itw-QF-[id number] elevation myocardial infarction. 2. Known coronary artery disease, on medical therapy thought not to be a candidate for revascularization following his initial cardiac catheterization. 3. Acute coronavirus infection. 4. Sinus bradycardia. PLAN: I am going to stop the metoprolol, cut back on the dose of lisinopril from 10 b.i.d. to 5 mg daily. Continue the aspirin and Lipitor. Prognosis guarded. We will continue to monitor him on telemetry for his bradycardia. NEREIDA / ELLIOTT: [id number] /
[2023-07-21 11:45] LABS: Glucose,Whole Blood 121 mg/dL (70-110)
[2023-07-21] MEDS: AZITHROMYCIN 500 MG TAB PO SCH (11:54)
[2023-07-21 16:41] LABS: Glucose,Whole Blood 287 mg/dL (70-110)
[2023-07-21] MEDS: HEPARIN SOD,PORK IN 0.45% NACL 25,000 UNIT in 0.45% NACL 1 250ML.BAG IV SCH (17:31)
[2023-07-21 20:23] LABS: Glucose,Whole Blood 244 mg/dL (70-110)
[2023-07-21] MEDS ORDERED: NON FORMULARY DRUG (Omeprazole [Omeprazole] 20 MG Capsule.Dr) PO SCH (21:00)
[2023-07-21] MEDS: TAMSULOSIN 0.4 MG CAP.ER.24H PO SCH (21:00)
[2023-07-21] MEDS: INSULIN DETEMIR (LEVEMIR) 100 UNIT/ML SYR SQ SCH (21:00)
--- NOTE | 2023-07-21 23:22 | HP ---
HISTORY AND PHYSICAL CHIEF COMPLAINT: Weakness, fall, and STEMI. HISTORY OF PRESENT ILLNESS: This is the first known admission under my care for this 82-year-old white male. His complaint was that he suddenly just felt his legs go out from under him and he was brought to the emergency room, where he was identified as having had a myocardial infarction. He was admitted to the ICU. His tropes were elevated. He was also found to be positive for COVID. Pulse ox was 85%. REVIEW OF SYSTEMS: Briefly obtained. At present time, he has not had any chest pain or shortness of breath. He is on BiPAP. Past medical history, family history, personal and social histories demonstrate that he is not allergic to any medication. He is diabetic. MEDICATIONS: 1. Trulicity. 2. Lantus. 3. Trazodone. 4. Metoprolol. 5. Amlodipine. 6. Gabapentin. 7. Farxiga. 8. Omeprazole. 9. Tamsulosin. 10.Metformin. 11.Atorvastatin. 12.Lasix. 13.Aspirin. The remainder of his history is relatively noncontributory. SOCIAL HISTORY: He used to smoke, but he does not any longer. Does not abuse alcohol. PHYSICAL EXAMINATION: VITAL SIGNS: Blood pressure is 132/102 with a pulse of 85 and regular. He is on BiPAP. HEAD, EARS, EYES, NOSE, AND MOUTH: Normal. NECK: Neck veins are not distended. CHEST: Clear bilaterally. CARDIAC: Normal sinus rhythm and no murmurs or extra sounds. ABDOMEN: Soft, nontender. EXTREMITIES: Normal. ASSESSMENT: He is admitted to the hospital with diagnosis of: 1. Non ST segment elevation myocardial infarction. 2. Insulin-dependent diabetes mellitus. PLAN: 1. Bed rest. 2. IV fluids. 3. Nasal O2. 4. Serial EKGs and enzymes. 5. Consult with Intensive Care and Cardiology. MMODL / IJN: [id number] /
[2023-07-22] MEDS: INSULIN ASPART (NovoLOG) 100 UNIT/ML VIAL SQ SCH ×4 (05:42→21:18)
[2023-07-22 05:43] LABS: Glucose,Whole Blood 158 mg/dL (70-110)
[2023-07-22 06:12] LABS: Basophils % (A) 0 %; Eosinophils % (A) 0 %; HGB 11.6 gm/dL (13.0-17.5); Lymphocytes # (A) 0.8 k/uL (1.0-4.8); Lymphocytes % (A) 19 %; MCH 31.3 pg (25.0-35.0); MCHC 33.1 g/dL (31.0-37.0); MCV 94.5 fL (80.0-100.0); Mean Platelet Volume 9.4; Monocytes # (A) 0.4 k/uL (0-1.0); Monocytes % (A) 8 %; Neutrophils % (A) 71 %; Platelet Count 161 k/uL (150-450); RBC 3.71 m/uL (4.30-5.90); RDW 13.6 % (11.5-15.5); WBC 4.2 k/uL (3.8-10.6)
[2023-07-22 06:19] LABS: African American GFR (CKD) 64 (>60 ml/min/1.73 sqM); Anion Gap 8 mmol/L; Blood Urea Nitrogen 21 mg/dL (9-20); Calcium 8.7 mg/dL (8.4-10.2); Carbon Dioxide 26 mmol/L (22-30); Chloride 104 mmol/L (98-107); Glucose 142 mg/dL (74-99); Non-African American GFR(CKD) 56 (>60 ml/min/1.73 sqM); Potassium 3.8 mmol/L (3.5-5.1); Sodium 138 mmol/L (137-145)
[2023-07-22] MEDS: HEPARIN SODIUM 1,000 UN/ML (10ML VL) IV PRN (06:31)
[2023-07-22] MEDS ORDERED: Potassium Replacement Protocol 1 EACH MISC MISCELLANE PRN (06:53)
--- NOTE | 2023-07-22 07:03 | CA ---
Transthoracic Echo Report Name: Darien Freedman Age: 82 Gender: M : 1940 Exam Date: 07/21/2023 14:42 Exam Location: [place] [facility] Ht (in): 69 Wt (lb): 220 Ordering Physician: Radha Edgar MD ([id number]) Attending/Referring Phys: Practice Administrator Chary Rondon [facility] Procedure CPT: Indications: CAD Cardiac Hx: Technical Quality: Contrast 1: Total Dose (mL): Contrast 2: Total Dose (mL): MEASUREMENTS (Male / Female) Normal Values 2D ECHO LV Diastolic Diameter PLAX 5.3 cm 4.2 - 5.9 / 3.9 - 5.3 cm LV Systolic Diameter PLAX 3.9 cm IVS Diastolic Thickness 1.5 cm 0.6 - 1.0 / 0.6 - 0.9 cm LVPW Diastolic Thickness 1.3 cm 0.6 - 1.0 / 0.6 - 0.9 cm LV Relative Wall Thickness 0.5 DOPPLER Mitral E Point Velocity 70.0 cm/s Mitral A Point Velocity 136.9 cm/s Mitral E to A Ratio 0.5 MV Deceleration Time 316.4 ms LV E' Lateral Velocity 4.3 cm/s Mitral E to LV E' Lateral Ratio 16.2 LV E' Septal Velocity 5.1 cm/s Mitral E to LV E' Septal Ratio 13.9 TR Peak Velocity 286.6 cm/s TR Peak Gradient 32.9 mmHg Right Atrial Pressure 8.0 mmHg Pulmonary Artery Systolic Pressu 40.9 mmHg Right Ventricular Systolic Press 40.9 mmHg FINDINGS Left Ventricle Moderately increased left ventricular wall thickness. Left ventricular cavity size at the upper limits of normal. Mildly reduced left ventricular systolic function. Anteroapical hypokinesis Left ventricular ejection fraction is estimated at 45-50%. Right Ventricle Mild pulmonary hypertension. Right Atrium Left Atrium Mitral Valve Mitral valve thickened. Moderate mitral annular calcification. Mild to Moderate mitral regurgitation. Aortic Valve Aortic valve sclerosis. Tricuspid Valve Tricuspid valve not well visualized. Mild tricuspid regurgitation. Pulmonic Valve Pulmonic valve not well visualized. Pericardium No pericardial effusion. Aorta CONCLUSIONS Limited study, patient is COVID+ 1. Mildly impaired left ventricle systolic function with anteroapical hypokinesis 2. [id number] mitral with mild tricuspid regurgitation Previewed by: Dr. Radha Edgar MD (Electronically Signed) Final Date: 22 July 2023 07:03
--- NOTE | 2023-07-22 07:15 | XR ---
EXAMINATION TYPE: XR chest 1V portable DATE OF EXAM: 07/22/2023 5:38 AM COMPARISON: Chest radiographs from 03/20/2023 TECHNIQUE: XR chest 1V portable Portable AP radiograph of the chest. CLINICAL INDICATION:Male, 82 years old with history of chf exacerbation; FINDINGS: Patient is rotated which limits evaluation. Lungs/Pleura: No pneumothorax or focal consolidation. Elevation right hemidiaphragm again demonstrate d. Pulmonary vascularity: Unremarkable. Heart/mediastinum: Cardiomediastinal silhouette is stable. Atherosclerotic calcifications are seen i n the aorta. Musculoskeletal: No acute osseous pathology. Degenerative changes of the thoracic spine. Other findings: Surgical clips in the right upper quadrant. IMPRESSION: Chronic changes without evidence for acute process.
[2023-07-22] MEDS ORDERED: POTASSIUM CHLORIDE ER 20 MEQ TAB.ER PO SCH (08:00)
[2023-07-22] MEDS: ATORVASTATIN 40 MG TAB PO SCH (08:19)
[2023-07-22] MEDS: PANTOPRAZOLE 40 MG/10 ML VIAL IVP SCH (08:19)
[2023-07-22] MEDS: ASPIRIN 81 MG PO SCH (08:19)
[2023-07-22] MEDS: DEXAMETHASONE SOD PHOSPHATE 10 MG/ML 1 ML VIAL IVP SCH (08:19)
[2023-07-22] MEDS: lisinopriL 5 MG TAB PO SCH ×2 (08:19→21:16)
[2023-07-22] MEDS: AZITHROMYCIN 500 MG TAB PO SCH (08:19)
--- NOTE | 2023-07-22 10:45 | P.PN ---
Subjective Progress Note Date: 07/22/23 I am seeing this patient in new consultation today 07/21/2023 in the intensive care unit after he was found to be short of breath and hypoxic while in the emergency room. He did test positive for COVID-19. He was also noted to have mild ST elevation in anterior leads on arrival. Patient was started on a heparin infusion, and admitted to the intensive care unit. Patient is an 82-year-old white male with past medical history significant for multivessel coronary artery disease, hypertension, hyperlipidemia, diabetes mellitus. While at home yesterday, he had an assisted fall to the ground. He states that he's been very weak over the last couple days. He states that his legs just "gave out". Denies losing consciousness. Since , he has progressively become more short of breath. Denies history of pulmonary disease. Admits associated cough with white sputum, chest congestion. Denies fevers, chills, wheezing, chest pain. States that his granddaughter did have a cold recently. He did test positive for COVID-19 on arrival. He is not vaccinated for COVID. He is currently lying in bed, on a 15 L nonrebreather, in no acute distress. He is hypoxic with an SpO2 of 86%. Chest CTA was negative for pulmonary embolism. It did show low lung volumes with pulmonary vascular congestion and cardiomegaly. There was also a right hemidiaphragm and right lower lobe infiltrate thought to represent atelectasis, however, superimposed pneumonia is not excluded. NT proBNP was 1800. Troponins elevated at 0.082 and 1.8 so far. EKG changes initially showed mild ST elevation in anterior leads, which improved with subsequent EKGs. There was also a right bundle-branch. Patient denies ever having any chest pain. He was started on a heparin infusion per protocol in the emergency room. Cardiology has evaluated the patient, and has elected medical management at this time. Most recent echocardiogram was from over 1 year ago and showed a preserved ejection fraction of 50-55% and moderate mitral regurgitation. CBC on arrival showed a WBC count of 6.8, hemoglobin 11.9, hematocrit 35.8, platelets 125. Baseline APTT is 25. CMP shows sodium 137, potassium 3.6, chloride 103, serum bicarbonate 23, BUN 19, creatinine 1.29, glucose 167. LFTs not elevated. Patient has been afebrile. Empirically started on a combination of azithromycin and Rocephin. Procalcitonin level ordered. CT of the brain and C-spine did not show any acute intracranial process or evidence of C-spine fracture. Patient will be monitored in the intensive care unit. The patient is seen today 07/22/2023 in follow-up in the intensive care unit. He is currently sitting up in bed. Awake and alert in no acute distress. He is currently on AirVo at 50 L and 50% FiO2 maintaining O2 saturations in the 90s. Echocardiogram revealed mildly impaired left ventricular systolic function with ejection fraction 45-50%. Today's chest x-ray reveals chronic changes but no acute pulmonary process. White count 4.2. Hemoglobin 11.6. Platelets 161. Sodium 138. Potassium 3.8. Bicarb 26. BUN 21. Creatinine 1.21. Hemoglobin A1c 9.1. Pro-calcitonin 0.13. TSH 0.939. He is currently in a -300 ML balance. Continued on Decadron. Heparin for DVT prophylaxis. Objective - Vital Signs Vital signs: Vital Signs Temp 98 F 07/22/23 08:00 Pulse 63 07/22/23 09:00 Resp 26 H 07/22/23 10:00 BP 137/74 07/22/23 10:00 Pulse Ox 96 07/22/23 10:00 FiO2 50 07/22/23 10:00 Intake & Output 07/21/23 07/22/23 07/22/23 18:59 06:59 18:59 Intake Total 873.2 256.4 150 Output Total 1000 450 0 Balance -126.8 -193.6 150 Weight 103.3 kg Intake: Intake, IV Titration 173.2 156.4 Amount Heparin Sod,Pork in 0.45% 173.2 156.4 NaCl 25,000 unit In 0.45 % NaCl 1 250ml.bag @ 10 mls/hr IV .Q24H [facility] Rx#: [id number] Oral 700 100 150 Output: Urine 1000 450 0 Other: Voiding Method Urinal Urinal Urinal # Voids 1 - Exam GENERAL EXAM: Alert, frail 82-year-old male, on AirVo 50 L and 50% FiO2, comfortable in no apparent distress. HEAD: Normocephalic and atraumatic EYES: Normal reaction of pupils, equal size. NOSE: Clear with pink turbinates. THROAT: No erythema or exudates. NECK: No masses, no JVD. CHEST: No chest wall deformity. LUNGS: Equal air entry with rhonchi heard throughout and minimal bibasilar inspi ratory crackles. No conversational dyspnea. CVS: S1 and S2 normal with no audible murmur, regular rhythm. No extra heart sounds ABDOMEN: No hepatosplenomegaly, active bowel sounds, no guarding or rigidity. SPINE: No scoliosis or deformity SKIN: Generalized pallor CENTRAL NERVOUS SYSTEM: No focal deficits, tone is normal in all 4 extremities. EXTREMITIES: There is no peripheral edema, clubbing, or cyanosis. Peripheral pulses are intact. - Labs CBC & Chem 7: 07/22/23 05:27 07/22/23 05:27 Labs: Abnormal Lab Results - Last 24 Hours (Table) 07/21/23 07/21/23 07/21/23 Range/Units 11:43 16:39 20:21 RBC (4.30-5.90) m/uL Hgb (13.0-17.5) gm/dL Hct (39.0-53.0) % Lymphocytes # (1.0-4.8) k/uL APTT (22.0-30.0) sec BUN (9-20) mg/dL Glucose (74-99) mg/dL POC Glucose (mg/dL) 121 H 287 H 244 H (70-110) mg/dL Hemoglobin A1c (<=6.0) % 07/22/23 07/22/23 07/22/23 Range/Units 05:27 05:27 05:27 RBC 3.71 L (4.30-5.90) m/uL Hgb 11.6 L (13.0-17.5) gm/dL Hct 35.0 L (39.0-53.0) % Lymphocytes # 0.8 L (1.0-4.8) k/uL APTT 40.8 H (22.0-30.0) sec BUN (9-20) mg/dL Glucose (74-99) mg/dL POC Glucose (mg/dL) (70-110) mg/dL Hemoglobin A1c 9.1 H (<=6.0) % 07/22/23 07/22/23 Range/Units 05:27 05:41 RBC (4.30-5.90) m/uL Hgb (13.0-17.5) gm/dL Hct (39.0-53.0) % Lymphocytes # (1.0-4.8) k/uL APTT (22.0-30.0) sec BUN 21 H (9-20) mg/dL Glucose 142 H (74-99) mg/dL POC Glucose (mg/dL) 158 H (70-110) mg/dL Hemoglobin A1c (<=6.0) % Assessment and Plan Assessment: Acute hypoxemic respiratory failure, currently on AirVo at 50 L and 50% FiO2, likely multifactorial, related to suspected exacerbation of diastolic congestive heart failure and acute COVID-19 infection. Chest CTA was negative for pulmonary embolism. It did show low lung volumes with pulmonary vascular congestion and cardiomegaly. There was also a right hemidiaphragm and right lower lobe infiltrate thought to represent atelectasis, however, superimposed pneumonia is not excluded Acute COVID-[address] elevation [place], being managed by Cardiology. Her cardiogram reveals mildly impaired left ventricular systolic function with ejection fraction 45-50% Multivessel coronary artery disease, recent left heart catheterization 05/02/2022, showed 40% stenosis of the left main, 80% stenosis of the mid LAD, 40% stenosis of left circumflex, 90% stenosis of the RCA, and 100% stenosis of the PDA. No intervention was carried out at that time Diabetes mellitus2, insulin-dependent Hyperlipidemia Benign essential hypertension Fall Obesity with a BMI of 32.5 kg/m Remote ex-smoker Plan: The patient was seen and evaluated Echocardiogram, chest x-ray, labs and medications reviewed Currently on AirVo at 50 L and 50% FiO2 Antibiotics discontinued Continue Decadron Heparin for DVT prophylaxis Titrate the FiO2 as tolerated We will continue to follow I have personally seen and examined the patient, performed the documentation and the assessment and plan as written. Number of minutes spent on the visit: 10.
[2023-07-22 11:34] LABS: Glucose,Whole Blood 160 mg/dL (70-110)
--- NOTE | 2023-07-22 11:37 | PN ---
PROGRESS NOTE SUBJECTIVE: Darien is an 82-year-old gentleman, who is admitted to hospital with non ST-segment elevation [place] and COVID infection with respiratory insufficiency. He is in the ICU for the same. His oxygen requirements are gradually coming down. He is currently on a high-flow nasal cannula at 50% and saturating with a pulse ox of 96%. He denies chest pain or difficulty in breathing. PHYSICAL EXAMINATION: VITAL SIGNS: Heart rate is 60 beats per minute, blood pressure is 134/74, respiratory rate is 18. CHEST: Reveals good air entry bilaterally. HEART: Reveals first and second heart sounds. No gallop. EXTREMITIES: Did not reveal any edema. Peripheral pulses are palpable. DIAGNOSTIC STUDIES: Chest x-ray did not reveal any acute changes. An echocardiogram showed mild LV systolic dysfunction with anteroapical hypokinesis. ASSESSMENT: 1. Acute chl-BF-wtirwhy elevation myocardial infarction. 2. COVID infection with respiratory insufficiency. PLAN: I will stop the IV heparin. Start him on subcu heparin. Continue the aspirin, Lipitor, Zestril. Hold off on beta-blockers at this time because of the bradycardia and the patient will need evaluation for underlying CAD once the COVID resolves. MMODL / IJN: [id number] /
[2023-07-22 16:21] LABS: Glucose,Whole Blood 235 mg/dL (70-110)
[2023-07-22] MEDS: HEPARIN SODIUM,PORCINE 5,000 UNIT/ML 1 ML VIAL SQ SCH ×2 (16:57→23:31)
[2023-07-22 20:34] LABS: Glucose,Whole Blood 197 mg/dL (70-110)
[2023-07-22] MEDS: TAMSULOSIN 0.4 MG CAP.ER.24H PO SCH (21:16)
[2023-07-22] MEDS: INSULIN DETEMIR (LEVEMIR) 100 UNIT/ML SYR SQ SCH (21:16)
[2023-07-23 05:22] LABS: Basophils % (A) 0 %; Eosinophils % (A) 0 %; HCT 38.1 % (39.0-53.0); HGB 12.4 gm/dL (13.0-17.5); Lymphocytes # (A) 0.7 k/uL (1.0-4.8); Lymphocytes % (A) 17 %; MCH 30.8 pg (25.0-35.0); MCHC 32.6 g/dL (31.0-37.0); MCV 94.2 fL (80.0-100.0); Mean Platelet Volume 9.3; Monocytes # (A) 0.4 k/uL (0-1.0); Monocytes % (A) 8 %; Neutrophils # (A) 3.2 k/uL (1.3-7.7); Neutrophils % (A) 73 %; Platelet Count 172 k/uL (150-450); RBC 4.04 m/uL (4.30-5.90); RDW 13.3 % (11.5-15.5); WBC 4.3 k/uL (3.8-10.6)
[2023-07-23 05:35] LABS: African American GFR (CKD) 60 (>60 ml/min/1.73 sqM); Anion Gap 11 mmol/L; Blood Urea Nitrogen 25 mg/dL (9-20); Calcium 9.2 mg/dL (8.4-10.2); Carbon Dioxide 24 mmol/L (22-30); Chloride 104 mmol/L (98-107); Glucose 160 mg/dL (74-99); Non-African American GFR(CKD) 52 (>60 ml/min/1.73 sqM); Potassium 3.7 mmol/L (3.5-5.1); Sodium 139 mmol/L (137-145)
[2023-07-23] MEDS ORDERED: POTASSIUM CHLORIDE ER 20 MEQ TAB.ER PO SCH (07:00)
[2023-07-23] MEDS: INSULIN ASPART (NovoLOG) 100 UNIT/ML VIAL SQ SCH ×4 (07:18→21:21)
[2023-07-23 07:19] LABS: Glucose,Whole Blood 146 mg/dL (70-110)
[2023-07-23] MEDS: ATORVASTATIN 40 MG TAB PO SCH (08:17)
[2023-07-23] MEDS: ASPIRIN 81 MG PO SCH (08:17)
[2023-07-23] MEDS: PANTOPRAZOLE 40 MG/10 ML VIAL IVP SCH (08:17)
[2023-07-23] MEDS: HEPARIN SODIUM,PORCINE 5,000 UNIT/ML 1 ML VIAL SQ SCH ×3 (08:17→23:48)
[2023-07-23] MEDS: lisinopriL 5 MG TAB PO SCH ×2 (08:17→21:21)
[2023-07-23] MEDS: DEXAMETHASONE SOD PHOSPHATE 10 MG/ML 1 ML VIAL IVP SCH (08:17)
--- NOTE | 2023-07-23 10:38 | P.PN ---
Subjective Progress Note Date: 07/23/23 I am seeing this patient in new consultation today 07/21/2023 in the intensive care unit after he was found to be short of breath and hypoxic while in the emergency room. He did test positive for COVID-19. He was also noted to have mild ST elevation in anterior leads on arrival. Patient was started on a heparin infusion, and admitted to the intensive care unit. Patient is an 82-year-old white male with past medical history significant for multivessel coronary artery disease, hypertension, hyperlipidemia, diabetes mellitus. While at home yesterday, he had an assisted fall to the ground. He states that he's been very weak over the last couple days. He states that his legs just "gave out". Denies losing consciousness. Since , he has progressively become more short of breath. Denies history of pulmonary disease. Admits associated cough with white sputum, chest congestion. Denies fevers, chills, wheezing, chest pain. States that his granddaughter did have a cold recently. He did test positive for COVID-19 on arrival. He is not vaccinated for COVID. He is currently lying in bed, on a 15 L nonrebreather, in no acute distress. He is hypoxic with an SpO2 of 86%. Chest CTA was negative for pulmonary embolism. It did show low lung volumes with pulmonary vascular congestion and cardiomegaly. There was also a right hemidiaphragm and right lower lobe infiltrate thought to represent atelectasis, however, superimposed pneumonia is not excluded. NT proBNP was 1800. Troponins elevated at 0.082 and 1.8 so far. EKG changes initially showed mild ST elevation in anterior leads, which improved with subsequent EKGs. There was also a right bundle-branch. Patient denies ever having any chest pain. He was started on a heparin infusion per protocol in the emergency room. Cardiology has evaluated the patient, and has elected medical management at this time. Most recent echocardiogram was from over 1 year ago and showed a preserved ejection fraction of 50-55% and moderate mitral regurgitation. CBC on arrival showed a WBC count of 6.8, hemoglobin 11.9, hematocrit 35.8, platelets 125. Baseline APTT is 25. CMP shows sodium 137, potassium 3.6, chloride 103, serum bicarbonate 23, BUN 19, creatinine 1.29, glucose 167. LFTs not elevated. Patient has been afebrile. Empirically started on a combination of azithromycin and Rocephin. Procalcitonin level ordered. CT of the brain and C-spine did not show any acute intracranial process or evidence of C-spine fracture. Patient will be monitored in the intensive care unit. The patient is seen today 07/22/2023 in follow-up in the intensive care unit. He is currently sitting up in bed. Awake and alert in no acute distress. He is currently on AirVo at 50 L and 50% FiO2 maintaining O2 saturations in the 90s. Echocardiogram revealed mildly impaired left ventricular systolic function with ejection fraction 45-50%. Today's chest x-ray reveals chronic changes but no acute pulmonary process. White count 4.2. Hemoglobin 11.6. Platelets 161. Sodium 138. Potassium 3.8. Bicarb 26. BUN 21. Creatinine 1.21. Hemoglobin A1c 9.1. Pro-calcitonin 0.13. TSH 0.939. He is currently in a -300 ML balance. Continued on Decadron. Heparin for DVT prophylaxis. The patient is seen today 07/23/2023 and follow-up in the intensive care unit. He is currently sitting up in a chair. He is awake and alert in no acute distress. He is on 12 L high flow nasal cannula. He denies any worsening shortness of breath, cough or congestion. Blood cultures reveal no growth. White count 4.3. Hemoglobin 12.4. Platelets 172. Sodium 139. Potassium 3.7. Bicarb 24. BUN 25. Creatinine 1.27. Glucose 160. He is continued on Decadron. Heparin for DVT prophylaxis. Objective - Vital Signs Vital signs: Vital Signs Temp 98 F 07/23/23 08:00 Pulse 65 07/23/23 10:00 Resp 22 07/23/23 10:00 BP 134/78 07/23/23 10:00 Pulse Ox 96 07/23/23 10:00 FiO2 40 07/22/23 19:53 Intake & Output 07/22/23 07/23/23 07/23/23 18:59 06:59 18:59 Intake Total 500 100 Output Total 500 275 0 Balance 0 -175 0 Weight 101.6 kg 101.6 kg Intake: Oral 500 100 Output: Urine 500 275 0 Other: Voiding Method Urinal Urinal Urinal # Voids 1 1 - Exam GENERAL EXAM: Alert, 82-year-old male, on 12 L high flow nasal cannula, up in a chair, comfortable in no apparent distress. HEAD: Normocephalic and atraumatic EYES: Normal reaction of pupils, equal size. NOSE: Clear with pink turbinates. THROAT: No erythema or exudates. NECK: No masses, no JVD. CHEST: No chest wall deformity. LUNGS: Equal air entry with rhonchi heard throughout and minimal bibasilar inspiratory crackles. No conversational dyspnea. CVS: S1 and S2 normal with no audible murmur, regular rhythm. No extra heart sounds ABDOMEN: No hepatosplenomegaly, active bowel sounds, no guarding or rigidity. SPINE: No scoliosis or deformity SKIN: Generalized pallor CENTRAL NERVOUS SYSTEM: No focal deficits, tone is normal in all 4 extremities. EXTREMITIES: There is no peripheral edema, clubbing, or cyanosis. Peripheral pulses are intact. - Labs CBC & Chem 7: 07/23/23 04:13 07/23/23 04:13 Labs: Abnormal Lab Results - Last 24 Hours (Table) 07/22/23 07/22/23 07/22/23 Range/Units 11:33 16:20 20:31 RBC (4.30-5.90) m/uL Hgb (13.0-17.5) gm/dL Hct (39.0-53.0) % Lymphocytes # (1.0-4.8) k/uL BUN (9-20) mg/dL Creatinine (0.66-1.25) mg/dL Glucose (74-99) mg/dL POC Glucose (mg/dL) 160 H 235 H 197 H (70-110) mg/dL 07/23/23 07/23/23 07/23/23 Range/Units 04:13 04:13 07:17 RBC 4.04 L (4.30-5.90) m/uL Hgb 12.4 L (13.0-17.5) gm/dL Hct 38.1 L (39.0-53.0) % Lymphocytes # 0.7 L (1.0-4.8) k/uL BUN 25 H (9-20) mg/dL Creatinine 1.27 H (0.66-1.25) mg/dL Glucose 160 H (74-99) mg/dL POC Glucose (mg/dL) 146 H (70-110) mg/dL Microbiology - Last 24 Hours (Table) 07/20/23 22:15 Blood Culture - Preliminary Blood 07/20/23 22:30 Blood Culture - Preliminary Blood Assessment and Plan Assessment: Acute hypoxemic respiratory failure, currently on AirVo at 50 L and 50% FiO2, likely multifactorial, related to suspected exacerbation of diastolic congestive heart failure and acute COVID-19 infection. Chest CTA was negative for pulmonary embolism. It did show low lung volumes with pulmonary vascular congestion and cardiomegaly. There was also a right hemidiaphragm and right lower lobe infiltrate thought to represent atelectasis, however, superimposed pneumonia is not excluded Acute COVID-[address] elevation [place], being managed by Cardiology. Echocardiogram reveals mildly impaired left ventricular systolic function with ejection fraction 45-50% Multivessel coronary artery disease, recent left heart catheterization 05/02/2022, showed 40% stenosis of the left main, 80% stenosis of the mid LAD, 40% stenosis of left circumflex, 90% stenosis of the RCA, and 100% stenosis of the PDA. No intervention was carried out at that time Diabetes mellitus2, insulin-dependent Hyperlipidemia Benign essential hypertension Fall Obesity with a BMI of 32.5 kg/m Remote ex-smoker Plan: The patient was seen and evaluated Labs and medications reviewed Currently on 12 L high flow nasal cannula Continue Decadron Heparin for DVT prophylaxis Titrate the FiO2 as tolerated We will continue to follow I have personally seen and examined the patient, performed the documentation and the assessment and plan as written. Number of minutes spent on the visit: 10.
--- NOTE | 2023-07-23 11:28 | PN ---
PROGRESS NOTE HISTORY OF PRESENT ILLNESS: This is an 82-year-old gentleman, who is in the ICU with hypoxia, related to COVID infection and also had wyt-WD-[id number] elevation [place]. He is feeling better. Oxygenation requirements are coming down. Denies any chest pain. We are treating him with optimal medical therapy at this time, has anteroapical hypokinesis on the echocardiogram. The plan is to treat him with optimal medical therapy for his underlying CAD. He is on aspirin, Lipitor, Zestril. His beta blockers are on hold because of bradycardia, and I will add nitrates. PHYSICAL EXAMINATION: VITAL SIGNS: Heart rate is 65 beats per minute, blood pressure is 134/78, respiratory rate is 18. CHEST: Reveals occasional rhonchi bilaterally. HEART: Reveals first and second heart sounds. No gallop. ABDOMEN: Soft. EXTREMITIES: Exam of extremities did not reveal any edema. Peripheral pulses are felt. LABORATORY DATA: Labs show a hemoglobin of 12.4, platelet count is 170. Potassium is 3.7, BUN is 25, creatinine is 1.2. ASSESSMENT: 1. Acute mwu-NM-xafutwf elevation myocardial infarction. 2. Coronavirus infection with hypoxia. PLAN: I will add nitrates to what he is on and add back amlodipine that he was on for blood pressure control. MMODL / IJN: [id number] /
[2023-07-23 11:39] LABS: Glucose,Whole Blood 208 mg/dL (70-110)
--- NOTE | 2023-07-23 12:22 | XR ---
EXAMINATION TYPE: XR shoulder limited LT DATE OF EXAM: 07/23/2023 COMPARISON: NONE HISTORY: 82-year-old male left shoulder decreased range of motion TECHNIQUE: Single AP internal rotation view FINDINGS: Limited assessment due to only single provided view. There is inferior acromial spurring which may be an indirect sign of underlying rotator cuff tear. Moderate degenerative change AC joint. No acute fr acture, subluxation, dislocation is apparent. IMPRESSION: 1. Limited assessment given only the single AP internal rotation view provided. 2. Inferior acromial spurring may be an indirect marker of underlying rotator cuff tear. 3. Moderate AC joint OA.
[2023-07-23] MEDS: ISOSORBIDE MONONITRATE ER 30 MG TAB.ER.24H PO SCH (12:37)
[2023-07-23] MEDS: amLODIPine 10 MG TAB PO SCH (12:37)
--- NOTE | 2023-07-23 14:46 | PN ---
PROGRESS NOTE DATE OF SERVICE: 07/22/2023 CHIEF COMPLAINT: Acute myocardial infarction. HISTORY OF PRESENT ILLNESS: This gentleman seems to be holding his own. He denies any further chest pain. He is not short of breath. He is awake and alert. Vital signs are normal. PHYSICAL EXAMINATION: LUNGS: Breath sounds are heard bilaterally. CARDIAC: Normal. ABDOMEN: Soft, nontender. IMPRESSION: Acute myocardial infarction. PLAN: Continue with supportive care and ICU and follow with Intensive Medicine and Cardiology. MMODL / IJN: [id number] /
[2023-07-23 16:28] LABS: Glucose,Whole Blood 284 mg/dL (70-110)
[2023-07-23 20:19] LABS: Glucose,Whole Blood 244 mg/dL (70-110)
[2023-07-23] MEDS: INSULIN DETEMIR (LEVEMIR) 100 UNIT/ML SYR SQ SCH (21:21)
[2023-07-23] MEDS: TAMSULOSIN 0.4 MG CAP.ER.24H PO SCH (21:21)
[2023-07-24 06:23] LABS: Basophils % (A) 0 %; Eosinophils % (A) 0 %; HCT 36.7 % (39.0-53.0); HGB 12.2 gm/dL (13.0-17.5); Lymphocytes # (A) 1.1 k/uL (1.0-4.8); Lymphocytes % (A) 22 %; MCH 31.7 pg (25.0-35.0); MCHC 33.2 g/dL (31.0-37.0); MCV 95.4 fL (80.0-100.0); Mean Platelet Volume 8.6; Monocytes # (A) 0.4 k/uL (0-1.0); Monocytes % (A) 8 %; Neutrophils # (A) 3.6 k/uL (1.3-7.7); Neutrophils % (A) 68 %; Platelet Count 194 k/uL (150-450); RBC 3.84 m/uL (4.30-5.90); RDW 13.5 % (11.5-15.5); WBC 5.2 k/uL (3.8-10.6)
[2023-07-24 06:54] LABS: Glucose,Whole Blood 137 mg/dL (70-110)
[2023-07-24 07:06] LABS: African American GFR (CKD) 65 (>60 ml/min/1.73 sqM); Anion Gap 6 mmol/L; Blood Urea Nitrogen 29 mg/dL (9-20); Calcium 9.1 mg/dL (8.4-10.2); Carbon Dioxide 28 mmol/L (22-30); Chloride 105 mmol/L (98-107); Glucose 136 mg/dL (74-99); Non-African American GFR(CKD) 56 (>60 ml/min/1.73 sqM); Sodium 139 mmol/L (137-145)
[2023-07-24] MEDS: INSULIN ASPART (NovoLOG) 100 UNIT/ML VIAL SQ SCH ×4 (07:13→20:43)
--- NOTE | 2023-07-24 07:31 | PN ---
PROGRESS NOTE DATE OF SERVICE: 07/21/2023 CHIEF COMPLAINT: Acute myocardial infarction. HISTORY OF PRESENT ILLNESS: Tano is doing fairly well. He is awake and alert. He denies significant chest pain or shortness of breath. Blood pressure is normal. Pulse ox is now up into the 90s. Troponins were elevated. He is being followed by Cardiology. PHYSICAL EXAMINATION: GENERAL: He is awake and alert. CHEST: Clear bilaterally. CARDIAC: Normal. ABDOMEN: Soft and nontender. IMPRESSION: 1. Fall secondary to acute myocardial infarction. 2. History of hypertension. PLAN: Continue to follow with Intensive Medicine, Cardiology while he is in the intensive care unit. MMODL / IJN: [id number] /
[2023-07-24] MEDS: ISOSORBIDE MONONITRATE ER 30 MG TAB.ER.24H PO SCH (09:34)
[2023-07-24] MEDS: HEPARIN SODIUM,PORCINE 5,000 UNIT/ML 1 ML VIAL SQ SCH ×3 (09:34→23:59)
[2023-07-24] MEDS: PANTOPRAZOLE 40 MG/10 ML VIAL IVP SCH (09:34)
[2023-07-24] MEDS: ATORVASTATIN 40 MG TAB PO SCH (09:34)
[2023-07-24] MEDS: DEXAMETHASONE SOD PHOSPHATE 10 MG/ML 1 ML VIAL IVP SCH (09:34)
[2023-07-24] MEDS: amLODIPine 10 MG TAB PO SCH (09:34)
[2023-07-24] MEDS: lisinopriL 5 MG TAB PO SCH ×2 (09:35→20:43)
[2023-07-24] MEDS: ASPIRIN 81 MG PO SCH (09:35)
--- NOTE | 2023-07-24 10:13 | PN ---
PROGRESS NOTE SUBJECTIVE: This is an 82-year-old gentleman, who is admitted to ICU with COVID infection, hypoxia, and acute aqs-OP-vcakdsj elevation [place]. The patient has known CAD and has been on medical therapy. The patient has had bradycardia, and we held his beta-blockers, but heart rate is currently in the 80s. We will resume the Toprol that he is on. The patient denies any chest pain or difficulty in breathing. OBJECTIVE: VITAL SIGNS: Heart rate is around 80 beats per minute, blood pressure is 130/72, respiratory rate is 14. NECK: There is no jugular venous distention. CHEST: Reveals good air entry bilaterally. HEART: Reveals first and second heart sounds and a systolic murmur at the apex. ABDOMEN: Soft. EXTREMITIES: Did not reveal any edema. LABORATORY DATA: Show a hemoglobin of 12.2, platelet count is 194. Potassium is 4, creatinine is 1.2. MEDICATIONS: The patient is currently on: 1. Aspirin. 2. Norvasc 10 daily. 3. Lipitor 40 daily. 4. Insulin. 5. Imdur 30 daily. 6. Zestril 5 b.i.d. 7. Toprol had just been resumed. ASSESSMENT: 1. Qmg-EW-mapwdtf elevation myocardial infarction in a patient with known coronary artery disease, on medical therapy. 2. COVID infection with hypoxia. PLAN: We will resume the Toprol and watch his heart rate. If he becomes bradycardic again, I am going to stop it. NEREIDA / ALEJANDRON: [id number] /
--- NOTE | 2023-07-24 10:57 | P.PN ---
Subjective Progress Note Date: 07/24/23 I am seeing this patient in new consultation today 07/21/2023 in the intensive care unit after he was found to be short of breath and hypoxic while in the emergency room. He did test positive for COVID-19. He was also noted to have mild ST elevation in anterior leads on arrival. Patient was started on a heparin infusion, and admitted to the intensive care unit. Patient is an 82-year-old white male with past medical history significant for multivessel coronary artery disease, hypertension, hyperlipidemia, diabetes mellitus. While at home yesterday, he had an assisted fall to the ground. He states that he's been very weak over the last couple days. He states that his legs just "gave out". Denies losing consciousness. Since , he has progressively become more short of breath. Denies history of pulmonary disease. Admits associated cough with white sputum, chest congestion. Denies fevers, chills, wheezing, chest pain. States that his granddaughter did have a cold recently. He did test positive for COVID-19 on arrival. He is not vaccinated for COVID. He is currently lying in bed, on a 15 L nonrebreather, in no acute distress. He is hypoxic with an SpO2 of 86%. Chest CTA was negative for pulmonary embolism. It did show low lung volumes with pulmonary vascular congestion and cardiomegaly. There was also a right hemidiaphragm and right lower lobe infiltrate thought to represent atelectasis, however, superimposed pneumonia is not excluded. NT proBNP was 1800. Troponins elevated at 0.082 and 1.8 so far. EKG changes initially showed mild ST elevation in anterior leads, which improved with subsequent EKGs. There was also a right bundle-branch. Patient denies ever having any chest pain. He was started on a heparin infusion per protocol in the emergency room. Cardiology has evaluated the patient, and has elected medical management at this time. Most recent echocardiogram was from over 1 year ago and showed a preserved ejection fraction of 50-55% and moderate mitral regurgitation. CBC on arrival showed a WBC count of 6.8, hemoglobin 11.9, hematocrit 35.8, platelets 125. Baseline APTT is 25. CMP shows sodium 137, potassium 3.6, chloride 103, serum bicarbonate 23, BUN 19, creatinine 1.29, glucose 167. LFTs not elevated. Patient has been afebrile. Empirically started on a combination of azithromycin and Rocephin. Procalcitonin level ordered. CT of the brain and C-spine did not show any acute intracranial process or evidence of C-spine fracture. Patient will be monitored in the intensive care unit. The patient is seen today 07/22/2023 in follow-up in the intensive care unit. He is currently sitting up in bed. Awake and alert in no acute distress. He is currently on AirVo at 50 L and 50% FiO2 maintaining O2 saturations in the 90s. Echocardiogram revealed mildly impaired left ventricular systolic function with ejection fraction 45-50%. Today's chest x-ray reveals chronic changes but no acute pulmonary process. White count 4.2. Hemoglobin 11.6. Platelets 161. Sodium 138. Potassium 3.8. Bicarb 26. BUN 21. Creatinine 1.21. Hemoglobin A1c 9.1. Pro-calcitonin 0.13. TSH 0.939. He is currently in a -300 ML balance. Continued on Decadron. Heparin for DVT prophylaxis. The patient is seen today 07/23/2023 and follow-up in the intensive care unit. He is currently sitting up in a chair. He is awake and alert in no acute distress. He is on 12 L high flow nasal cannula. He denies any worsening shortness of breath, cough or congestion. Blood cultures reveal no growth. White count 4.3. Hemoglobin 12.4. Platelets 172. Sodium 139. Potassium 3.7. Bicarb 24. BUN 25. Creatinine 1.27. Glucose 160. He is continued on Decadron. Heparin for DVT prophylaxis. The patient is seen today 07/24/2023 in follow-up in the intensive care unit. He is awake and alert in no acute distress. Sitting up in a chair at the bedside. He is down to 10 L high flow nasal cannula. No IV fluids. Breathing a bit easier today compared to yesterday. White count 5.2. Hemoglobin 12.2. Platelets 194. Sodium 139. Potassium 4.0. Bicarb 28. BUN 29. Creatinine 1.20. Glucose 136. He is continued on Decadron. Heparin for DVT prophylaxis per Objective - Vital Signs Vital signs: Vital Signs Temp 98.6 F 07/24/23 08:00 Pulse 73 07/24/23 10:00 Resp 15 07/24/23 10:00 BP 122/77 07/24/23 10:00 Pulse Ox 96 07/24/23 10:00 FiO2 40 07/22/23 19:53 Intake & Output 07/23/23 07/24/23 07/24/23 18:59 06:59 18:59 Intake Total 150 Output Total 300 150 200 Balance -300 0 -200 Weight 101.6 kg 100 kg Intake: Oral 150 Output: Urine 300 150 200 Other: Voiding Method Urinal Urinal Urinal # Voids 1 0 0 - Exam GENERAL EXAM: Alert, pleasant 82-year-old male, on 10 L high flow nasal cannula, comfortable in no apparent distress. HEAD: Normocephalic and atraumatic EYES: Normal reaction of pupils, equal size. NOSE: Clear with pink turbinates. THROAT: No erythema or exudates. NECK: No masses, no JVD. CHEST: No chest wall deformity. LUNGS: Equal air entry with rhonchi heard throughout and minimal bibasilar inspiratory crackles. No conversational dyspnea. CVS: S1 and S2 normal with no audible murmur, regular rhythm. No extra heart sounds ABDOMEN: No hepatosplenomegaly, active bowel sounds, no guarding or rigidity. SPINE: No scoliosis or deformity SKIN: Generalized pallor CENTRAL NERVOUS SYSTEM: No focal deficits, tone is normal in all 4 extremities. EXTREMITIES: There is no peripheral edema, clubbing, or cyanosis. Peripheral pulses are intact. - Labs CBC & Chem 7: 07/24/23 06:02 07/24/23 06:02 Labs: Abnormal Lab Results - Last 24 Hours (Table) 07/23/23 07/23/23 07/23/23 Range/Units 11:27 16:16 20:17 RBC (4.30-5.90) m/uL Hgb (13.0-17.5) gm/dL Hct (39.0-53.0) % BUN (9-20) mg/dL Glucose (74-99) mg/dL POC Glucose (mg/dL) 208 H 284 H 244 H (70-110) mg/dL 07/24/23 07/24/23 07/24/23 Range/Units 06:02 06:02 06:52 RBC 3.84 L (4.30-5.90) m/uL Hgb 12.2 L (13.0-17.5) gm/dL Hct 36.7 L (39.0-53.0) % BUN 29 H (9-20) mg/dL Glucose 136 H (74-99) mg/dL POC Glucose (mg/dL) 137 H (70-110) mg/dL Microbiology - Last 24 Hours (Table) 07/20/23 22:15 Blood Culture - Preliminary Blood 07/20/23 22:30 Blood Culture - Preliminary Blood Assessment and Plan Assessment: Acute hypoxemic respiratory failure, currently on 10 L high flow nasal cannula, likely multifactorial, related to suspected exacerbation of diastolic congestive heart failure and acute COVID-19 infection. Chest CTA was negative for pulmonary embolism. It did show low lung volumes with pulmonary vascular congestion and cardiomegaly. There was also a right hemidiaphragm and right lower lobe infiltrate thought to represent atelectasis, however, superimposed pneumonia is not excluded Acute COVID-[address] elevation [place], being managed by Cardiology. Echocardiogram reveals mildly impaired left ventricular systolic function with ejection fraction 45-50% Multivessel coronary artery disease, recent left heart catheterization 05/02/2022, showed 40% stenosis of the left main, 80% stenosis of the mid LAD, 40% stenosis of left circumflex, 90% stenosis of the RCA, and 100% stenosis of the PDA. No intervention was carried out at that time Diabetes mellitus2, insulin-dependent Hyperlipidemia Benign essential hypertension Fall Obesity with a BMI of 32.5 kg/m Remote ex-smoker Plan: The patient was seen and evaluated Labs and medications reviewed Currently on 10 L high flow nasal cannula Continue Decadron Heparin for DVT prophylaxis Titrate the FiO2 as tolerated Transfer to the regular medical floor We will continue to follow I have personally seen and examined the patient, performed the documentation and the assessment and plan as written. Number of minutes spent on the visit: 10.
[2023-07-24 11:22] LABS: Glucose,Whole Blood 215 mg/dL (70-110)
[2023-07-24 16:16] LABS: Glucose,Whole Blood 320 mg/dL (70-110)
[2023-07-24 20:19] LABS: Glucose,Whole Blood 220 mg/dL (70-110)
[2023-07-24] MEDS: TAMSULOSIN 0.4 MG CAP.ER.24H PO SCH (20:43)
[2023-07-24] MEDS: INSULIN DETEMIR (LEVEMIR) 100 UNIT/ML SYR SQ SCH (20:43)
--- NOTE | 2023-07-25 01:39 | PN ---
PROGRESS NOTE DATE OF SERVICE: 07/23/2023 CHIEF COMPLAINT: Acute myocardial infarction, left shoulder pain and COVID. HISTORY OF PRESENT ILLNESS: This gentleman is doing well. He has had no chest pain, shortness of breath, etc. Vital signs have been stable. He has had some discomfort in the left arm, but x-rays of the shoulder negative. PHYSICAL EXAMINATION: VITAL SIGNS: Normal. HEART: He is in sinus rhythm. CHEST: Demonstrates poor breath sounds, but they are clear. CARDIAC: Normal. ABDOMEN: Soft, nontender. EXTREMITIES: Normal. Left shoulder is slightly irritable. IMPRESSION: 1. Acute ST elevation myocardial infarction. 2. History of hypertension. 3. Left shoulder rotator cuff tendinitis. PLAN: No change in his current program and he remains in ICU. He has had no significant problems and can probably be moved to step-down unit soon. MMKATL / ELLIOTT: [id number] /
--- NOTE | 2023-07-25 02:03 | PN ---
PROGRESS NOTE DATE OF SERVICE: 07/24/2023 CHIEF COMPLAINT: NSTEMI. HISTORY OF PRESENT ILLNESS: This gentleman remains stable. He has had no further problems. He is not particularly short of breath. PHYSICAL EXAMINATION: VITAL SIGNS: Normal. CHEST: Clear. CARDIAC: Normal. ABDOMEN: Soft, nontender. EXTREMITIES: Normal. IMPRESSION: 1. Non-ST elevation myocardial infarction. 2. Left shoulder pain. PLAN: Progress activity. MMODL / IJN: [id number] /
[2023-07-25 06:25] LABS: Glucose,Whole Blood 169 mg/dL (70-110)
[2023-07-25] MEDS: INSULIN ASPART (NovoLOG) 100 UNIT/ML VIAL SQ SCH ×4 (06:28→21:49)
[2023-07-25] MEDS: HEPARIN SODIUM,PORCINE 5,000 UNIT/ML 1 ML VIAL SQ SCH ×3 (08:23→21:49)
[2023-07-25] MEDS: DEXAMETHASONE SOD PHOSPHATE 10 MG/ML 1 ML VIAL IVP SCH (08:23)
[2023-07-25] MEDS: amLODIPine 10 MG TAB PO SCH (08:24)
[2023-07-25] MEDS: ASPIRIN 81 MG PO SCH (08:24)
[2023-07-25] MEDS: METOPROLOL SUCCINATE (ER) 25 MG TAB.ER.24H PO SCH (08:24)
[2023-07-25] MEDS: ATORVASTATIN 40 MG TAB PO SCH (08:24)
[2023-07-25] MEDS: lisinopriL 5 MG TAB PO SCH ×2 (08:24→21:49)
[2023-07-25] MEDS: ISOSORBIDE MONONITRATE ER 30 MG TAB.ER.24H PO SCH (08:24)
[2023-07-25] MEDS: PANTOPRAZOLE 40 MG/10 ML VIAL IVP SCH (08:24)
--- NOTE | 2023-07-25 09:48 | CONS ---
CONSULTATION HISTORY OF PRESENT ILLNESS: Darien is an 82-year-old gentleman with history of coronary artery disease, on medical therapy, hypertension, diabetes, dyslipidemia, who presented to hospital with acute coronavirus infection with hypoxia. He has gotten much better. He is currently on 2 L of nasal O2. Heart rate is around 80 beats per minute, afebrile. Blood pressure is 150/79, but most of his blood pressures all through the day have essentially been normal. The patient is currently on aspirin, Lipitor, Norvasc 10 mg daily, insulin, Imdur 30 mg daily, Zestril 5 mg b.i.d., Toprol-XL 25 mg daily. I do not have any labs from this morning. ASSESSMENT: 1. COVID infection with hypoxia, getting better on optimal medical therapy. 2. Acute hvo-CL-akhzmfr elevation PR, in medical therapy. PLAN: I will continue him on his current medications. I will increase the dose of Zestril if necessary to 10 b.i.d. if his blood pressure remains elevated. MMODL / IJN: [id number] /
--- NOTE | 2023-07-25 10:18 | P.PN ---
Subjective Progress Note Date: 07/25/23 I am seeing this patient in new consultation today 07/21/2023 in the intensive care unit after he was found to be short of breath and hypoxic while in the emergency room. He did test positive for COVID-19. He was also noted to have mild ST elevation in anterior leads on arrival. Patient was started on a heparin infusion, and admitted to the intensive care unit. Patient is an 82-year-old white male with past medical history significant for multivessel coronary artery disease, hypertension, hyperlipidemia, diabetes mellitus. While at home yesterday, he had an assisted fall to the ground. He states that he's been very weak over the last couple days. He states that his legs just "gave out". Denies losing consciousness. Since , he has progressively become more short of breath. Denies history of pulmonary disease. Admits associated cough with white sputum, chest congestion. Denies fevers, chills, wheezing, chest pain. States that his granddaughter did have a cold recently. He did test positive for COVID-19 on arrival. He is not vaccinated for COVID. He is currently lying in bed, on a 15 L nonrebreather, in no acute distress. He is hypoxic with an SpO2 of 86%. Chest CTA was negative for pulmonary embolism. It did show low lung volumes with pulmonary vascular congestion and cardiomegaly. There was also a right hemidiaphragm and right lower lobe infiltrate thought to represent atelectasis, however, superimposed pneumonia is not excluded. NT proBNP was 1800. Troponins elevated at 0.082 and 1.8 so far. EKG changes initially showed mild ST elevation in anterior leads, which improved with subsequent EKGs. There was also a right bundle-branch. Patient denies ever having any chest pain. He was started on a heparin infusion per protocol in the emergency room. Cardiology has evaluated the patient, and has elected medical management at this time. Most recent echocardiogram was from over 1 year ago and showed a preserved ejection fraction of 50-55% and moderate mitral regurgitation. CBC on arrival showed a WBC count of 6.8, hemoglobin 11.9, hematocrit 35.8, platelets 125. Baseline APTT is 25. CMP shows sodium 137, potassium 3.6, chloride 103, serum bicarbonate 23, BUN 19, creatinine 1.29, glucose 167. LFTs not elevated. Patient has been afebrile. Empirically started on a combination of azithromycin and Rocephin. Procalcitonin level ordered. CT of the brain and C-spine did not show any acute intracranial process or evidence of C-spine fracture. Patient will be monitored in the intensive care unit. The patient is seen today 07/22/2023 in follow-up in the intensive care unit. He is currently sitting up in bed. Awake and alert in no acute distress. He is currently on AirVo at 50 L and 50% FiO2 maintaining O2 saturations in the 90s. Echocardiogram revealed mildly impaired left ventricular systolic function with ejection fraction 45-50%. Today's chest x-ray reveals chronic changes but no acute pulmonary process. White count 4.2. Hemoglobin 11.6. Platelets 161. Sodium 138. Potassium 3.8. Bicarb 26. BUN 21. Creatinine 1.21. Hemoglobin A1c 9.1. Pro-calcitonin 0.13. TSH 0.939. He is currently in a -300 ML balance. Continued on Decadron. Heparin for DVT prophylaxis. The patient is seen today 07/23/2023 and follow-up in the intensive care unit. He is currently sitting up in a chair. He is awake and alert in no acute distress. He is on 12 L high flow nasal cannula. He denies any worsening shortness of breath, cough or congestion. Blood cultures reveal no growth. White count 4.3. Hemoglobin 12.4. Platelets 172. Sodium 139. Potassium 3.7. Bicarb 24. BUN 25. Creatinine 1.27. Glucose 160. He is continued on Decadron. Heparin for DVT prophylaxis. The patient is seen today 07/24/2023 in follow-up in the intensive care unit. He is awake and alert in no acute distress. Sitting up in a chair at the bedside. He is down to 10 L high flow nasal cannula. No IV fluids. Breathing a bit easier today compared to yesterday. White count 5.2. Hemoglobin 12.2. Platelets 194. Sodium 139. Potassium 4.0. Bicarb 28. BUN 29. Creatinine 1.20. Glucose 136. He is continued on Decadron. Heparin for DVT prophylaxis per The patient is seen today 07/25/2023 in follow-up in the intensive care unit. He is a regular medical floor overflow. He is sitting up in a chair at the bedside. Awake and alert in no acute distress. He is maintaining good O2 saturations on 2 L/m per nasal cannula. Continues to improve daily. He is continued on Decadron, heparin for DVT prophylaxis. Glucose 169. Objective - Vital Signs Vital signs: Vital Signs Temp 97.7 F 07/25/23 08:00 Pulse 90 07/25/23 08:00 Resp 21 07/25/23 08:00 BP 148/77 07/25/23 08:00 Pulse Ox 92 L 07/25/23 08:00 FiO2 40 07/22/23 19:53 Intake & Output 07/24/23 07/25/23 07/25/23 18:59 06:59 18:59 Output Total 200 500 Balance -200 -500 Weight 99 kg Output: Urine 200 500 Other: Voiding Method Urinal Urinal Urinal # Voids 1 # Bowel Movements 1 - Exam GENERAL EXAM: Alert, pleasant 82-year-old male, on 2 L nasal cannula, up in a chair, comfortable in no apparent distress. HEAD: Normocephalic and atraumatic EYES: Normal reaction of pupils, equal size. NOSE: Clear with pink turbinates. THROAT: No erythema or exudates. NECK: No masses, no JVD. CHEST: No chest wall deformity. LUNGS: Equal air entry with rhonchi heard throughout and minimal bibasilar inspiratory crackles. No conversational dyspnea. CVS: S1 and S2 normal with no audible murmur, regular rhythm. No extra heart sounds ABDOMEN: No hepatosplenomegaly, active bowel sounds, no guarding or rigidity. SPINE: No scoliosis or deformity SKIN: Generalized pallor CENTRAL NERVOUS SYSTEM: No focal deficits, tone is normal in all 4 extremities. EXTREMITIES: There is no peripheral edema, clubbing, or cyanosis. Peripheral pulses are intact. - Labs CBC & Chem 7: 07/24/23 06:02 07/24/23 06:02 Labs: Abnormal Lab Results - Last 24 Hours (Table) 07/24/23 07/24/23 07/24/23 Range/Units 11:20 16:13 20:18 POC Glucose (mg/dL) 215 H 320 H 220 H (70-110) mg/dL 07/25/23 Range/Units 06:23 POC Glucose (mg/dL) 169 H (70-110) mg/dL Microbiology - Last 24 Hours (Table) 07/20/23 22:15 Blood Culture - Preliminary Blood 07/20/23 22:30 Blood Culture - Preliminary Blood Assessment and Plan Assessment: Acute hypoxemic respiratory failure, likely multifactorial, related to suspected exacerbation of diastolic congestive heart failure and acute COVID-19 infection. Chest CTA was negative for pulmonary embolism. It did show low lung volumes with pulmonary vascular congestion and cardiomegaly. There was also a right hemidiaphragm and right lower lobe infiltrate thought to represent atelectasis, however, superimposed pneumonia is not excluded. Improving daily and currently down to 2 L nasal cannula Acute COVID-19 infection Acute non- ST elevation [place], being managed by Cardiology. Echocardiogram reveals mildly impaired left ventricular systolic function with ejection fraction 45-50% Multivessel coronary artery disease, recent left heart catheterization 05/02/2022, showed 40% stenosis of the left main, 80% stenosis of the mid LAD, 40% stenosis of left circumflex, 90% stenosis of the RCA, and 100% stenosis of the PDA. No intervention was carried out at that time Diabetes mellitus2, insulin-dependent Hyperlipidemia Benign essential hypertension Fall Obesity with a BMI of 32.5 kg/m Remote ex-smoker Plan: The patient was seen and evaluated Labs and medications reviewed Continues to improve daily Currently on 2 L nasal cannula Continue Decadron Heparin for DVT prophylaxis We will continue to follow I have personally seen and examined the patient, performed the documentation and the assessment and plan as written. Number of minutes spent on the visit: 10.
[2023-07-25 11:27] LABS: Glucose,Whole Blood 193 mg/dL (70-110)
[2023-07-25 16:22] LABS: Glucose,Whole Blood 310 mg/dL (70-110)
[2023-07-25 21:43] LABS: Glucose,Whole Blood 367 mg/dL (70-110)
[2023-07-25] MEDS: TAMSULOSIN 0.4 MG CAP.ER.24H PO SCH (21:49)
[2023-07-25] MEDS: INSULIN DETEMIR (LEVEMIR) 100 UNIT/ML SYR SQ SCH (21:50)
[2023-07-26 06:01] LABS: Glucose,Whole Blood 135 mg/dL (70-110)
[2023-07-26] MEDS: INSULIN ASPART (NovoLOG) 100 UNIT/ML VIAL SQ SCH ×4 (06:49→20:56)
[2023-07-26] MEDS: ATORVASTATIN 40 MG TAB PO SCH (08:08)
[2023-07-26] MEDS: METOPROLOL SUCCINATE (ER) 25 MG TAB.ER.24H PO SCH (08:08)
[2023-07-26] MEDS: ISOSORBIDE MONONITRATE ER 30 MG TAB.ER.24H PO SCH (08:08)
[2023-07-26] MEDS: ASPIRIN 81 MG PO SCH (08:08)
[2023-07-26] MEDS: PANTOPRAZOLE 40 MG/10 ML VIAL IVP SCH (08:08)
[2023-07-26] MEDS: lisinopriL 5 MG TAB PO SCH ×2 (08:08→20:56)
[2023-07-26] MEDS: amLODIPine 10 MG TAB PO SCH (08:09)
[2023-07-26] MEDS: HEPARIN SODIUM,PORCINE 5,000 UNIT/ML 1 ML VIAL SQ SCH ×3 (08:09→23:38)
--- NOTE | 2023-07-26 10:10 | P.PN ---
Subjective HISTORY OF PRESENT ILLNESS: This is an 82-year-old male who is admitted to the hospital secondary to Covid, respiratory failure, and non-STEMI. Patient has been transferred out of the intensive care unit to the medical floor. Patient examined this morning. He is sitting up in the chair. Patient currently denies chest pain or pressure. He currently denies shortness of breath or cough. He remains on 2 L nasal cannula with oxygen saturations greater than 92%. Patient continues to report weakness of his left arm and is using his right arm to support his left arm at the time of examination. He states this is new since coming to the hospital. PHYSICAL EXAM: VITAL SIGNS: Reviewed. GENERAL: Well-developed in no acute distress. NECK: Supple. No JVD or thyromegaly LUNGS: Respirations even and unlabored. Lungs essentially clear to auscultation bilaterally. HEART: Regular rate and rhythm. S1 and S2 heard. Systolic murmur noted EXTREMITIES: Normal range of motion. No clubbing or cyanosis. Peripheral pulses intact. Trace bilateral lower extremity edema ASSESSMENT: Covid 19 Acute hypoxic respiratory failure Non-STEMI Multivessel coronary artery disease, previously felt not to be a candidate for percutaneous revascularization Mild cardiomyopathy, ejection fraction 45-50% Hypertension Hyperlipidemia Diabetes History of falls Possible history of CVA Former nicotine dependence PLAN: Continue current cardiac medications Continue with conservative management from a cardiac perspective Consult neurology secondary to left upper extremity weakness Further recommendations pending patient's course Nurse practitioner note has been reviewed by physician. Signing provider agrees with the documented findings, assessment, and plan of care. Objective - Vital Signs Vital signs: Vital Signs Temp 97.6 F 07/26/23 08:00 Pulse 70 07/26/23 08:00 Resp 14 07/26/23 08:00 BP 149/81 07/26/23 08:00 Pulse Ox 90 L 07/26/23 08:00 FiO2 40 07/22/23 19:53 Intake & Output 07/25/23 07/26/23 07/26/23 18:59 06:59 18:59 Intake Total 600 Output Total 501 500 Balance 99 -500 Intake: Oral 600 Output: Urine 500 500 Stool 1 Other: Voiding Method Urinal # Voids 2 - Labs CBC & Chem 7: 07/24/23 06:02 07/24/23 06:02 Labs: Abnormal Lab Results - Last 24 Hours (Table) 07/25/23 07/25/23 07/25/23 Range/Units 11:25 16:20 21:40 POC Glucose (mg/dL) 193 H 310 H 367 H (70-110) mg/dL 07/26/23 Range/Units 05:59 POC Glucose (mg/dL) 135 H (70-110) mg/dL
--- NOTE | 2023-07-26 11:07 | P.PN ---
Subjective Progress Note Date: 07/26/23 Principal diagnosis: Hypoxemia. I am seeing this patient in new consultation today 07/21/2023 in the intensive care unit after he was found to be short of breath and hypoxic while in the emergency room. He did test positive for COVID-19. He was also noted to have mild ST elevation in anterior leads on arrival. Patient was started on a heparin infusion, and admitted to the intensive care unit. Patient is an 82-year-old white male with past medical history significant for multivessel coronary artery disease, hypertension, hyperlipidemia, diabetes mellitus. While at home yesterday, he had an assisted fall to the ground. He states that he's been very weak over the last couple days. He states that his legs just "gave out". Denies losing consciousness. Since , he has progressively become more short of breath. Denies history of pulmonary disease. Admits associated cough with white sputum, chest congestion. Denies fevers, chills, wheezing, chest pain. States that his granddaughter did have a cold recently. He did test positive for COVID-19 on arrival. He is not vaccinated for COVID. He is currently lying in bed, on a 15 L nonrebreather, in no acute distress. He is hypoxic with an SpO2 of 86%. Chest CTA was negative for pulmonary embolism. It did show low lung volumes with pulmonary vascular congestion and cardiomegaly. There was also a right hemidiaphragm and right lower lobe infiltrate thought to represent atelectasis, however, superimposed pneumonia is not excluded. NT proBNP was 1800. Troponins elevated at 0.082 and 1.8 so far. EKG changes initially showed mild ST elevation in anterior leads, which improved with subsequent EKGs. There was also a right bundle-branch. Patient denies ever having any chest pain. He was started on a heparin infusion per protocol in the emergency room. Cardiology has evaluated the patient, and has elected medical management at this time. Most recent echocardiogram was from over 1 year ago a nd showed a preserved ejection fraction of 50-55% and moderate mitral regurgitation. CBC on arrival showed a WBC count of 6.8, hemoglobin 11.9, hematocrit 35.8, platelets 125. Baseline APTT is 25. CMP shows sodium 137, potassium 3.6, chloride 103, serum bicarbonate 23, BUN 19, creatinine 1.29, glu cose 167. LFTs not elevated. Patient has been afebrile. Empirically started on a combination of azithromycin and Rocephin. Procalcitonin level ordered. CT of the brain and C-spine did not show any acute intracranial process or evidence of C-spine fracture. Patient will be monitored in the intensive care unit. The patient is seen today 07/22/2023 in follow-up in the intensive care unit. He is currently sitting up in bed. Awake and alert in no acute distress. He is currently on AirVo at 50 L and 50% FiO2 maintaining O2 saturations in the 90s. Echocardiogram revealed mildly impaired left ventricular systolic function with ejection fraction 45-50%. Today's chest x-ray reveals chronic changes but no acute pulmonary process. White count 4.2. Hemoglobin 11.6. Platelets 161. Sodium 138. Potassium 3.8. Bicarb 26. BUN 21. Creatinine 1.21. Hemoglobin A1c 9.1. Pro-calcitonin 0.13. TSH 0.939. He is currently in a -300 ML balance. Continued on Decadron. Heparin for DVT prophylaxis. The patient is seen today 07/23/2023 and follow-up in the intensive care unit. He is currently sitting up in a chair. He is awake and alert in no acute distress. He is on 12 L high flow nasal cannula. He denies any worsening shortness of breath, cough or congestion. Blood cultures reveal no growth. White count 4.3. Hemoglobin 12.4. Platelets 172. Sodium 139. Potassium 3.7. Bicarb 24. BUN 25. Creatinine 1.27. Glucose 160. He is continued on Decadron. Heparin for DVT prophylaxis. The patient is seen today 07/24/2023 in follow-up in the intensive care unit. He is awake and alert in no acute distress. Sitting up in a chair at the bedside. He is down to 10 L high flow nasal cannula. No IV fluids. Breathing a bit easier today compared to yesterday. White count 5.2. Hemoglobin 12.2. Platelets 194. Sodium 139. Potassium 4.0. Bicarb 28. BUN 29. Creatinine 1.20. Glucose 136. He is continued on Decadron. Heparin for DVT prophylaxis per The patient is seen today 07/25/2023 in follow-up in the intensive care unit. He is a regular medical floor overflow. He is sitting up in a chair at the bedside. Awake and alert in no acute distress. He is maintaining good O2 saturations on 2 L/m per nasal cannula. Continues to improve daily. He is continued on Decadron, heparin for DVT prophylaxis. Glucose 169. Progress note dated 07/26/2023. The patient is seen today in room 454. Yesterday, he was still in the intensive care unit. The patient is currently on 2 L of oxygen. He is not receiving any IV fluids. Discontinue the Decadron today. He's feeling much improved, and is hoping be discharged in the near future. No new labs today other than a glucose of 135. Blood cultures are currently negative. Objective - Vital Signs Vital signs: Vital Signs Temp 97.6 F 07/26/23 08:00 Pulse 70 07/26/23 08:00 Resp 14 07/26/23 08:00 BP 149/81 07/26/23 08:00 Pulse Ox 90 L 07/26/23 08:00 FiO2 40 07/22/23 19:53 Intake & Output 07/25/23 07/26/23 07/26/23 18:59 06:59 18:59 Intake Total 600 Output Total 501 500 Balance 99 -500 Intake: Oral 600 Output: Urine 500 500 Stool 1 Other: Voiding Method Urinal # Voids 2 - Exam No acute distress, oriented 3. Currently on 2 L of oxygen. Saturations are in the low 90s. HEENT examination is grossly unremarkable. Mucous membranes are moist. No oral lesions. Neck supple. Full range of motion. No adenopathy thyromegaly or neck vein distention. Cardiovascular examination reveals regular rhythm rate. S1-S2 normal. No S3 or S4. No discernible murmur noted. Heart rate 70 bpm. Lungs reveal scattered rhonchi. No wheezes or crackles. Breath sounds are equal bilaterally. The patient is currently on 2 L of oxygen. Abdomen soft bowel sounds are heard. No masses or tenderness. Extremities are intact. No cyanosis clubbing or edema. Skin is without rash or lesion. Neurologic examination is brief but nonfocal. - Labs CBC & Chem 7: 07/24/23 06:02 07/24/23 06:02 Labs: Abnormal Lab Results - Last 24 Hours (Table) 07/25/23 07/25/23 07/25/23 Range/Units 11:25 16:20 21:40 POC Glucose (mg/dL) 193 H 310 H 367 H (70-110) mg/dL 07/26/23 Range/Units 05:59 POC Glucose (mg/dL) 135 H (70-110) mg/dL Assessment and Plan Assessment: Acute hypoxemic respiratory failure, likely multifactorial, related to suspected exacerbation of diastolic congestive heart failure and acute COVID-19 infection. Chest CTA was negative for pulmonary embolism. Acute COVID-19 infection. Acute non- ST elevation [place]. Multivessel coronary artery disease, recent left heart catheterization 05/02/2022, showed 40% stenosis of the left main, 80% stenosis of the mid LAD, 40% stenosis of left circumflex, 90% stenosis of the RCA, and 100% stenosis of the PDA. Diabetes mellitus2, insulin-dependent. Hyperlipidemia. Benign essential hypertension. Fall. Obesity with a BMI of 32.5 kg/m. Remote ex-smoker. Plan: Plan dated 07/26/2023. The patient appears to be doing relatively well. His been weaned down to 2 L. A couple of days ago, in the intensive care unit, he was on AIRVO. Subsequent to that, he was on high flow nasal cannula. Clinically, he is much improved. Labs, x-rays, medications are reviewed. We will continue to follow, and make recommendations along the way. Prognosis is certainly guarded. Time with Patient: Less than 30
[2023-07-26 11:19] LABS: Glucose,Whole Blood 172 mg/dL (70-110)
--- NOTE | 2023-07-26 13:42 | P.CNNES ---
History of Present Illness Consult date: 07/26/23 Requesting physician: Layo Hale Reason for Consult: left arm weakness History of Present Illness: This is an 82-year-old gentleman who presented emergency department because of shortness of breath and hypoxic and he was tested positive for COVID-19 infection. Neurology is consulted for left upper extremity weakness. According to the patient he's been having the bilateral upper extremity weakness left more than right and the last 1 week. Patient is extremely hard of hearing so unable to get a thorough history but he stated the last 1 week he had bilateral upper extremity weakness and denies of any neck pain. He denies of any history of stroke. He takes baby aspirin home. He denies of any A. fib or flutter to his knowledge. Some other workup during his hospital visit consisted of: CT of head on 07/20/2023: It is reported as no acute intracranial processes. Nonspecific white matter changes, likely secondary due to chronic small vessel ischemic disease. I pressure review the CT head and I agree there is no acute or subacute ischemia. There is no bleed that was able to appreciate. CT cervical spine was reported as no evidence of cervical spine fracture. Mild to moderate multilevel degenerative disc disease. Lipid panel is triglyceride of 106, cholesterol 133, LDL 69, HDL 52 Hemoglobin A1c is 9.1. TSH is 0.939 Coronavirus PCR is detected Limited 2-D echo was reported as mildly impaired left ventricular systolic function with an anterolateral apical hypokinesis. [id number] mitral with mild tricuspid regurgitation Review of Systems The positive and negative as per HPI. Past Medical History Past Medical History: Diabetes Mellitus, Hypertension Additional Past Medical History / Comment(s): POSSIBLE CVA 2007-NO DEFICITS History of Any Multi-Drug Resistant Organisms: None Reported Past Surgical History: Adenoidectomy, Appendectomy, Cholecystectomy, Orthopedic Surgery, Tonsillectomy Additional Past Surgical History / Comment(s): eye lid surgery Past Anesthesia/Blood Transfusion Reactions: No Reported Reaction Past Psychological History: No Psychological Hx Reported Smoking Status: Former smoker Past Alcohol Use History: Occasional Past Drug Use History: None Reported - Past Family History Brother(s) Family Medical History: Cancer Medications and Allergies Home Medications Medication Instructions Recorded Confirmed Type Atorvastatin [Lipitor] 10 mg PO HS 04/29/22 07/20/23 History Furosemide [Lasix] 20 mg PO DAILY 04/29/22 07/20/23 History Gabapentin 300 mg PO TID 04/29/22 07/20/23 History Glimepiride [Amaryl] 2 mg PO DAILY 04/29/22 07/20/23 History Metoprolol Succinate (ER) [Toprol 25 mg PO DAILY 04/29/22 07/20/23 History Xl] Omeprazole 20 mg PO BID 04/29/22 07/20/23 History Pioglitazone [Actos] 15 mg PO DAILY 04/29/22 07/20/23 History Tamsulosin [Flomax] 0.8 mg PO HS 04/29/22 07/20/23 History amLODIPine BESYLATE/BENAZEPRIL 1 cap PO DAILY 04/29/22 07/20/23 History [amLODIPine BESYLATE/BENAZEPRIL 10-40 mg] metFORMIN HCL 1,000 mg PO BID 04/29/22 07/20/23 History Dulaglutide [Trulicity] 1.5 mg SQ RIDLEY 07/20/23 07/20/23 History Insulin Glargine,Hum.rec.anlog 6 units SQ DAILY@1700 07/20/23 07/20/23 History [Lantus Solostar Pen] traZODone HCL [Desyrel] 50 mg PO HS PRN 07/20/23 07/20/23 History Allergies Allergy/AdvReac Type Severity Reaction Status Date / Time No Known Allergies Allergy Verified 07/20/23 20:02 Physical Examination - Vital Signs Vital Signs: Vital Signs Temp Pulse Pulse Resp BP Pulse Ox 07/26/23 08:00 97.6 F 70 14 149/81 90 L 07/26/23 02:13 98.1 F 75 20 140/80 92 L 07/25/23 20:00 18 07/25/23 17:48 97.6 F 75 18 142/69 92 L 07/25/23 15:51 94 L 07/25/23 14:00 97 F L 97 20 151/76 94 L Intake and Output 07/25/23 07/26/23 07/26/23 22:59 06:59 14:59 Intake Total 600 Output Total 701 300 Balance -101 -300 Intake: Oral 600 Output: Urine 700 300 Stool 1 Other: # Voids 2 GENERAL: The patient is sitting in a recliner chair and is not in acute distress. NEUROLOGICAL: Higher mental function: The patient is awake, alert, oriented to self, place and time. Patient is following commands. No aphasia and no neglect. Cranial nerves: The pupils are round, equal and reactive to light. Visual [place] are full to confrontation throughout. Initially had left eye closed but would open it. Had difficulty assessing EOM because of his cooperation. Facial sensation is normal to touch throughout. Has mild left lower facial weakness. Is very hard of hearing bilaterally. Tongue is midline and moved [id number] without any difficulty. No dysarthria is noted. Shoulder shrug is normal bilaterally. Motor: The strength is left upper extremity forearm extension is 3 on the left and right is 4, hand sports marketing specialist are 3-4 (worse on the left). Had difficulty raising the left upper. Otherwise lifting lowers above gravity symmetrically. Slight decrease tone of the left upper. Normal bulk. Cerebellum: Difficulty performing because of weakness. Sensation: Sensation is normal to touch throughout. Reflexes (right/left): 1+ throughout. Plantars are mute bilaterally. Results - Laboratory Findings CBC and BMP: 07/24/23 06:02 07/24/23 06:02 Abnormal Lab Findings: Abnormal Labs 07/20/23 07/20/23 07/20/23 18:44 18:44 18:44 RBC 3.77 L Hgb 11.9 L Hct 35.8 L Plt Count 125 L Lymphocytes # 0.6 L APTT BUN Creatinine 1.29 H Glucose 167 H POC Glucose (mg/dL) Hemoglobin A1c Troponin I 0.082 H* Procalcitonin Coronavirus (PCR) 07/20/23 07/20/23 07/21/23 20:50 21:35 00:14 RBC Hgb Hct Plt Count Lymphocytes # APTT BUN Creatinine Glucose POC Glucose (mg/dL) 221 H Hemoglobin A1c Troponin I 1.810 H* Procalcitonin Coronavirus (PCR) Detected A 07/21/23 07/21/23 07/21/23 00:37 01:06 01:06 RBC Hgb Hct Plt Count Lymphocytes # APTT 40.8 H BUN Creatinine Glucose POC Glucose (mg/dL) 220 H Hemoglobin A1c Troponin I 1.900 H* Procalcitonin Coronavirus (PCR) 07/21/23 07/21/23 07/21/23 01:06 06:17 06:58 RBC 3.51 L Hgb 11.2 L Hct 33.6 L Plt Count 130 L Lymphocytes # 0.7 L APTT BUN Creatinine Glucose POC Glucose (mg/dL) 159 H Hemoglobin A1c Troponin I Procalcitonin 0.13 H Coronavirus (PCR) 07/21/23 07/21/23 07/21/23 06:58 09:02 11:43 RBC Hgb Hct Plt Count Lymphocytes # APTT 57.8 H BUN Creatinine Glucose 146 H POC Glucose (mg/dL) 121 H Hemoglobin A1c Troponin I Procalcitonin Coronavirus (PCR) 07/21/23 07/21/23 07/22/23 16:39 20:21 05:27 RBC Hgb Hct Plt Count Lymphocytes # APTT BUN Creatinine Glucose POC Glucose (mg/dL) 287 H 244 H Hemoglobin A1c 9.1 H Troponin I Procalcitonin Coronavirus (PCR) 07/22/23 07/22/23 07/22/23 05:27 05:27 05:27 RBC 3.71 L Hgb 11.6 L Hct 35.0 L Plt Count Lymphocytes # 0.8 L APTT 40.8 H BUN 21 H Creatinine Glucose 142 H POC Glucose (mg/dL) Hemoglobin A1c Troponin I Procalcitonin Coronavirus (PCR) 07/22/23 07/22/23 07/22/23 05:41 11:33 16:20 RBC Hgb Hct Plt Count Lymphocytes # APTT BUN Creatinine Glucose POC Glucose (mg/dL) 158 H 160 H 235 H Hemoglobin A1c Troponin I Procalcitonin Coronavirus (PCR) 07/22/23 07/23/23 07/23/23 20:31 04:13 04:13 RBC 4.04 L Hgb 12.4 L Hct 38.1 L Plt Count Lymphocytes # 0.7 L APTT BUN 25 H Creatinine 1.27 H Glucose 160 H POC Glucose (mg/dL) 197 H Hemoglobin A1c Troponin I Procalcitonin Coronavirus (PCR) 07/23/23 07/23/23 07/23/23 07:17 11:27 16:16 RBC Hgb Hct Plt Count Lymphocytes # APTT BUN Creatinine Glucose POC Glucose (mg/dL) 146 H 208 H 284 H Hemoglobin A1c Troponin I Procalcitonin Coronavirus (PCR) 07/23/23 07/24/23 07/24/23 20:17 06:02 06:02 RBC 3.84 L Hgb 12.2 L Hct 36.7 L Plt Count Lymphocytes # APTT BUN 29 H Creatinine Glucose 136 H POC Glucose (mg/dL) 244 H Hemoglobin A1c Troponin I Procalcitonin Coronavirus (PCR) 07/24/23 07/24/23 07/24/23 06:52 11:20 16:13 RBC Hgb Hct Plt Count Lymphocytes # APTT BUN Creatinine Glucose POC Glucose (mg/dL) 137 H 215 H 320 H Hemoglobin A1c Troponin I Procalcitonin Coronavirus (PCR) 07/24/23 07/25/23 07/25/23 20:18 06:23 11:25 RBC Hgb Hct Plt Count Lymphocytes # APTT BUN Creatinine Glucose POC Glucose (mg/dL) 220 H 169 H 193 H Hemoglobin A1c Troponin I Procalcitonin Coronavirus (PCR) 07/25/23 07/25/23 07/26/23 16:20 21:40 05:59 RBC Hgb Hct Plt Count Lymphocytes # APTT BUN Creatinine Glucose POC Glucose (mg/dL) 310 H 367 H 135 H Hemoglobin A1c Troponin I Procalcitonin Coronavirus (PCR) 07/26/23 11:18 RBC Hgb Hct Plt Count Lymphocytes # APTT BUN Creatinine Glucose POC Glucose (mg/dL) 172 H Hemoglobin A1c Troponin I Procalcitonin Coronavirus (PCR) Assessment and Plan Assessment: This is an 82-year-old gentleman who presented to the hospital because of shortness of breath and was found to have COVID-19 infection. He also has weakness of the left approximately more than the right for the past [address] of the head and cervical spine is negative for any acute or subacute changes Bilateral upper extremity weakness left more than right and I felt the patient had left facial droop: Probable underlying subacute stroke. Acute hypoxic respiratory failure and patient has acute COVID-19 infection. Acute non-ST elevation [place] History of coronary artery disease status post stent Diabetes mellitus on insulin Hypertension Hyperlipidemia Remote ex-smoker Plan: I ordered a repeat CT of the head and cervical spine. There is a backup of MRIs and unlikely it'll be performed this weekend likely to performed either Friday or Friday. I ordered carotid duplex Patient is on aspirin 81 mg daily his home medication and if the the CT of the head does confirm a stroke then will add Plavix 75 mg daily Patient. Patient is on Lipitor 40 mg daily Every 4 hours neuro checks Cardiac monitoring PT and OT are consulted Cardiology and pulmonary team are on board We'll defer the rest of the medical management to primary team For DVT prophylaxis the patient is on subcu heparin 5000 units every 8 hours The plan was discussed with the patient and his nurse Thank you for the consultation Time with Patient: Greater than 30
--- NOTE | 2023-07-26 15:20 | CT ---
EXAMINATION TYPE: CT brain cspine wo con CT DLP: 1477.9 mGycm, Automated exposure control for dose reduction was used. DATE OF EXAM: 07/26/2023 2:59 PM COMPARISON: 07/20/2023 CLINICAL INDICATION:Male, 82 years old with history of bilateral arm weakness left > right; Frequent falls. TECHNIQUE: Brain: Multiple axial CT images of the brain were obtained without IV contrast. Cspine: Axial CT images from the skull base to the inferior aspect of T2 we obtained without intraven ous contrast. Coronal and sagittal reformatted images were also reviewed. FINDINGS: Brain: Extra-axial spaces: No abnormal extra-axial fluid collections. Ventricular system: Within normal limits Cerebral parenchyma: Similar white matter changes in the right centrum semiovale and right dixon rad iata compared to most recent prior and may have been represent 2019 study. No acute intraparenchymal hemorrhage or mass effect. The gardiner-white junction is well differentiated. Cerebellum: Unremarkable. Mass effect: No evidence of midline shift. Intracranial vasculature: Atherosclerotic calcifications of the intracranial vessels. Soft tissues: Normal. Calvarium/osseous structures: No depressed skull fracture. Paranasal sinuses and mastoid air cells: Few scattered opacified left mastoid air cells. Visualized orbits: Bilateral aphakia Cervical spine: Fracture: None. Osseous structures: Multilevel degenerative disc disease changes with endplate spurring and disc oste ophyte complex's. Ankylosis of the lateral facets of C2-C3 on the left. Vertebral alignment: Within normal limits. Spinal canal/Neural Foramina: Disc osteophyte complexes at C3-C7 with at least mild spinal canal sten osis. Facet joint uncovertebral joint arthropathy scattered throughout the cervical spine with varyin g degrees of neural foraminal stenosis. Neural foraminal stenosis worse at C3-C4 and C5-C6 with at le ast moderate in moderate to severe neural foraminal stenosis. Neck soft tissues: Prevertebral soft tissues are within normal limits. Other: The airway is patent. The lung apices are clear. IMPRESSION: 1. No acute intracranial process. 2. Nonspecific white matter changes, likely secondary to chronic small vessel ischemic disease. 3. No evidence of cervical spine fracture. 4. Moderate to severe multilevel degenerative disc disease with multilevel neural foraminal stenosis of varying degrees.
--- NOTE | 2023-07-26 15:54 | US ---
EXAMINATION TYPE: US carotid duplex BILAT DATE OF EXAM: 07/26/2023 COMPARISON: NONE CLINICAL INDICATION: Male, 82 years old with history of stroke; Stroke TECHNIQUE: Carotid duplex ultrasound examination. Indirect Doppler criteria was utilized. FINDINGS: EXAM MEASUREMENTS: RIGHT: Peak Systolic Velocity (PSV) cm/sec ----- Right CCA: 62.4 ----- Right ICA: 79.4 ----- Right ECA: 121 ICA/CCA ratio: 1.3 RIGHT: End Diastole cm/sec ----- Right CCA: 9.5 ----- Right ICA: 15.7 ----- Right ECA: 0.0 LEFT: Peak Systolic Velocity (PSV) cm/sec ----- Left CCA: 99.3 ----- Left ICA: 87.1 ----- Left ECA: 117 ICA/CCA ratio: 1.1 LEFT: End Diastole cm/sec ----- Left CCA: 0.0 ----- Left ICA: 12.6 ----- Left ECA: 0.0 VERTEBRALS (direction of flow): Right Vertebral: Antegrade Left Vertebral: Unable to visualize RACK WORKER NOTES: Heavy pt breathing, difficult exam No significant stenosis seen IMPRESSION: 1. Less than 50% stenosis of the bilateral carotid bifurcations. 2. Nonvisualization of the left vertebral artery. Criteria for Assigning % of Stenosis / Diameter reduction (Estimation based on the indirect measurements of the internal carotid artery velocities (ICA PSV). 1. Normal (no stenosis)=ICA PSV < 125 cm/s: ratio < 2.0: ICA EDV<40 cm/s. 2. Less than 50% stenosis=ICA PSV < 125 cm/s: ratio < 2.0: ICA EDV<40 cm/s. 3. 50 to 69% stenosis=ICA PSV of 125 to 230 cm/s: ration 2.0 ? 4.0: ICA EDV 40-100 cm/s. 4. Greater than 70% stenosis to near occlusion= ICA PSV > 230 cm/s: ratio > 4.0: ICA EDV > 100 cm/s. 5. Near occlusion= ICA PSV velocities may be low or undetectable: variable ratio and ICA EDV. 6. Total occlusion=unable to detect flow.
[2023-07-26 16:19] LABS: Glucose,Whole Blood 195 mg/dL (70-110)
[2023-07-26 20:45] LABS: Glucose,Whole Blood 214 mg/dL (70-110)
[2023-07-26] MEDS: INSULIN DETEMIR (LEVEMIR) 100 UNIT/ML SYR SQ SCH (20:56)
[2023-07-26] MEDS: TAMSULOSIN 0.4 MG CAP.ER.24H PO SCH (20:56)
[2023-07-27 06:08] LABS: Glucose,Whole Blood 100 mg/dL (70-110)
[2023-07-27] MEDS: INSULIN ASPART (NovoLOG) 100 UNIT/ML VIAL SQ SCH ×4 (06:38→21:05)
[2023-07-27] MEDS: METOPROLOL SUCCINATE (ER) 25 MG TAB.ER.24H PO SCH (08:35)
[2023-07-27] MEDS: lisinopriL 5 MG TAB PO SCH ×2 (08:37→21:05)
[2023-07-27] MEDS: amLODIPine 10 MG TAB PO SCH (08:37)
[2023-07-27] MEDS: HEPARIN SODIUM,PORCINE 5,000 UNIT/ML 1 ML VIAL SQ SCH ×2 (08:37→17:03)
[2023-07-27] MEDS: ATORVASTATIN 40 MG TAB PO SCH (08:37)
[2023-07-27] MEDS: ISOSORBIDE MONONITRATE ER 30 MG TAB.ER.24H PO SCH (08:37)
[2023-07-27] MEDS: ASPIRIN 81 MG PO SCH (08:37)
[2023-07-27] MEDS: CLOPIDOGREL 75 MG TAB PO SCH (10:25)
--- NOTE | 2023-07-27 10:26 | P.PN ---
Subjective Progress Note Date: 07/27/23 This is an 82-year-old male who is admitted to the hospital secondary to Covid, respiratory failure, non-STEMI. Patient examined this morning he is sitting up in the chair in no signs of acute distress. Patient currently denies chest pain or pressure. He denies shortness of breath, he remains on 2 L nasal cannula. Patient was reporting or weakness in his left arm which was new new finding. Patient is being evaluated by neurology. Patient underwent a CT of the head and neck which showed no acute intercranial process, nonspecific white matter changes likely secondary to chronic small vessel ischemic disease. No evidence of cervical spine fracture. Moderate to severe multilevel degenerative disc disease of very and agrees. Patient did report during his computed tomography scan that he was short of breath when lying flat. No further episodes of shortness of breath has been reported patient is on Lasix 20 mg by mouth daily at home. Will restart Lasix. Patient also underwent a carotid Doppler which showed less than 50% stenosis bilaterally. Objective - Vital Signs Vital signs: Vital Signs Temp 98.0 F 07/27/23 07:12 Pulse 55 L 07/27/23 07:12 Resp 14 07/27/23 07:12 BP 129/66 07/27/23 07:12 Pulse Ox 94 L 07/27/23 07:12 FiO2 40 07/22/23 19:53 Intake & Output 07/26/23 07/27/23 07/27/23 18:59 06:59 18:59 Intake Total 720 Output Total 650 700 Balance 70 -700 Intake: Oral 720 Output: Urine 650 700 - Exam PHYSICAL EXAM: VITAL SIGNS: Reviewed. GENERAL: Well-developed in no acute distress. HEENT: Head is normocephalic. Pupils are equal, round. Sclerae anicteric. Mucous membranes of the mouth are moist. NECK: Supple. No JVD or thyromegaly RESPIRATORY: Respirations even and unlabored. Lungs diminished to auscultation bilaterally. CARDIO: Regular rate and rhythm. S1 and S2 heard. No murmur or gallops. EXTREMITIES: Normal range of motion. No clubbing or cyanosis. Peripheral pulses intact. Negative for bilateral lower extremity edema NEURO: Orientated to person, time, mood is appropriate - Labs CBC & Chem 7: 07/24/23 06:02 07/24/23 06:02 Labs: Abnormal Lab Results - Last 24 Hours (Table) 07/26/23 07/26/23 07/26/23 Range/Units 11:18 16:17 20:43 POC Glucose (mg/dL) 172 H 195 H 214 H (70-110) mg/dL Microbiology - Last 24 Hours (Table) 07/20/23 22:15 Blood Culture - Final Blood 07/20/23 22:30 Blood Culture - Final Blood Assessment and Plan Assessment: ASSESSMENT: Covid 19 Acute hypoxic respiratory failure Non-STEMI Multivessel coronary artery disease, previously felt not to be a candidate for percutaneous revascularization Mild cardiomyopathy, ejection fraction 45-50% Hypertension Hyperlipidemia Diabetes History of falls Possible history of CVA Former nicotine dependence Plan: PLAN: Add Lasix 20 mg by mouth daily Continue current cardiac medications Continue with conservative management from a cardiac perspective Followed by neurology secondary to left upper extremity weakness Further recommendations pending patient's course Nurse practitioner note has been reviewed by physician. Signing provider agrees with the documented findings, assessment, and plan of care.
[2023-07-27] MEDS: PANTOPRAZOLE 40 MG/10 ML VIAL IVP SCH (10:30)
--- NOTE | 2023-07-27 11:10 | P.PN ---
Subjective Progress Note Date: 07/27/23 Principal diagnosis: Hypoxemia. I am seeing this patient in new consultation today 07/21/2023 in the intensive care unit after he was found to be short of breath and hypoxic while in the emergency room. He did test positive for COVID-19. He was also noted to have mild ST elevation in anterior leads on arrival. Patient was started on a heparin infusion, and admitted to the intensive care unit. Patient is an 82-year-old white male with past medical history significant for multivessel coronary artery disease, hypertension, hyperlipidemia, diabetes mellitus. While at home yesterday, he had an assisted fall to the ground. He states that he's been very weak over the last couple days. He states that his legs just "gave out". Denies losing consciousness. Since , he has progressively become more short of breath. Denies history of pulmonary disease. Admits associated cough with white sputum, chest congestion. Denies fevers, chills, wheezing, chest pain. States that his granddaughter did have a cold recently. He did test positive for COVID-19 on arrival. He is not vaccinated for COVID. He is currently lying in bed, on a 15 L nonrebreather, in no acute distress. He is hypoxic with an SpO2 of 86%. Chest CTA was negative for pulmonary embolism. It did show low lung volumes with pulmonary vascular congestion and cardiomegaly. There was also a right hemidiaphragm and right lower lobe infiltrate thought to represent atelectasis, however, superimposed pneumonia is not excluded. NT proBNP was 1800. Troponins elevated at 0.082 and 1.8 so far. EKG changes initially showed mild ST elevation in anterior leads, which improved with subsequent EKGs. There was also a right bundle-branch. Patient denies ever having any chest pain. He was started on a heparin infusion per protocol in the emergency room. Cardiology has evaluated the patient, and has elected medical management at this time. Most recent echocardiogram was from over 1 year ago a nd showed a preserved ejection fraction of 50-55% and moderate mitral regurgitation. CBC on arrival showed a WBC count of 6.8, hemoglobin 11.9, hematocrit 35.8, platelets 125. Baseline APTT is 25. CMP shows sodium 137, potassium 3.6, chloride 103, serum bicarbonate 23, BUN 19, creatinine 1.29, glu cose 167. LFTs not elevated. Patient has been afebrile. Empirically started on a combination of azithromycin and Rocephin. Procalcitonin level ordered. CT of the brain and C-spine did not show any acute intracranial process or evidence of C-spine fracture. Patient will be monitored in the intensive care unit. The patient is seen today 07/22/2023 in follow-up in the intensive care unit. He is currently sitting up in bed. Awake and alert in no acute distress. He is currently on AirVo at 50 L and 50% FiO2 maintaining O2 saturations in the 90s. Echocardiogram revealed mildly impaired left ventricular systolic function with ejection fraction 45-50%. Today's chest x-ray reveals chronic changes but no acute pulmonary process. White count 4.2. Hemoglobin 11.6. Platelets 161. Sodium 138. Potassium 3.8. Bicarb 26. BUN 21. Creatinine 1.21. Hemoglobin A1c 9.1. Pro-calcitonin 0.13. TSH 0.939. He is currently in a -300 ML balance. Continued on Decadron. Heparin for DVT prophylaxis. The patient is seen today 07/23/2023 and follow-up in the intensive care unit. He is currently sitting up in a chair. He is awake and alert in no acute distress. He is on 12 L high flow nasal cannula. He denies any worsening shortness of breath, cough or congestion. Blood cultures reveal no growth. White count 4.3. Hemoglobin 12.4. Platelets 172. Sodium 139. Potassium 3.7. Bicarb 24. BUN 25. Creatinine 1.27. Glucose 160. He is continued on Decadron. Heparin for DVT prophylaxis. The patient is seen today 07/24/2023 in follow-up in the intensive care unit. He is awake and alert in no acute distress. Sitting up in a chair at the bedside. He is down to 10 L high flow nasal cannula. No IV fluids. Breathing a bit easier today compared to yesterday. White count 5.2. Hemoglobin 12.2. Platelets 194. Sodium 139. Potassium 4.0. Bicarb 28. BUN 29. Creatinine 1.20. Glucose 136. He is continued on Decadron. Heparin for DVT prophylaxis per The patient is seen today 07/25/2023 in follow-up in the intensive care unit. He is a regular medical floor overflow. He is sitting up in a chair at the bedside. Awake and alert in no acute distress. He is maintaining good O2 saturations on 2 L/m per nasal cannula. Continues to improve daily. He is continued on Decadron, heparin for DVT prophylaxis. Glucose 169. Progress note dated 07/26/2023. The patient is seen today in room 454. Yesterday, he was still in the intensive care unit. The patient is currently on 2 L of oxygen. He is not receiving any IV fluids. Discontinue the Decadron today. He's feeling much improved, and is hoping be discharged in the near future. No new labs today other than a glucose of 135. Blood cultures are currently negative. Progress note dated 07/27/2023. The patient is seen today in room 454. He continues on oxygen at 2 L. He is at receiving any IV fluids. The patient is feeling much improved. Labs today only included glucose of 100. Blood cultures are currently negative. Decadron was discontinued yesterday. Objective - Vital Signs Vital signs: Vital Signs Temp 98.0 F 07/27/23 07:12 Pulse 55 L 07/27/23 07:12 Resp 14 07/27/23 07:12 BP 129/66 07/27/23 07:12 Pulse Ox 94 L 07/27/23 07:12 FiO2 40 07/22/23 19:53 Intake & Output 07/26/23 07/27/23 07/27/23 18:59 06:59 18:59 Intake Total 720 Output Total 650 700 Balance 70 -700 Intake: Oral 720 Output: Urine 650 700 - Exam No acute distress, oriented 3. Currently on 2 L of oxygen. Saturations are 94%. HEENT examination is grossly unremarkable. Mucous membranes are moist. No oral lesions. Neck supple. Full range of motion. No adenopathy thyromegaly or neck vein distention. Cardiovascular examination reveals regular rhythm rate. S1-S2 normal. No S3 or S4. No discernible murmur noted. Heart rate 58 bpm. Lungs reveal scattered rhonchi. No wheezes or crackles. Breath sounds are equal bilaterally. The patient is currently on 2 L of oxygen. Abdomen soft bowel sounds are heard. No masses or tenderness. Extremities are intact. No cyanosis clubbing or edema. Skin is without rash or lesion. Neurologic examination is brief but nonfocal. - Labs CBC & Chem 7: 07/24/23 06:02 07/24/23 06:02 Labs: Abnormal Lab Results - Last 24 Hours (Table) 07/26/23 07/26/23 07/26/23 Range/Units 11:18 16:17 20:43 POC Glucose (mg/dL) 172 H 195 H 214 H (70-110) mg/dL Microbiology - Last 24 Hours (Table) 07/20/23 22:15 Blood Culture - Final Blood 07/20/23 22:30 Blood Culture - Final Blood Assessment and Plan Assessment: Acute hypoxemic respiratory failure, likely multifactorial, related to suspected exacerbation of diastolic congestive heart failure and acute COVID-19 infection. Chest CTA was negative for pulmonary embolism. Acute COVID-19 infection. Acute non- ST elevation IN. Multivessel coronary artery disease, recent left heart catheterization 05/02/2022, showed 40% stenosis of the left main, 80% stenosis of the mid LAD, 40% stenosis of left circumflex, 90% stenosis of the RCA, and 100% stenosis of the PDA. Diabetes mellitus2, insulin-dependent. Hyperlipidemia. Benign essential hypertension. Fall. Obesity with a BMI of 32.5 kg/m. Remote ex-smoker. Plan: Plan dated 07/26/2023. The patient appears to be doing relatively well. His been weaned down to 2 L. A couple of days ago, in the intensive care unit, he was on AIRVO. Subsequent to that, he was on high flow nasal cannula. Clinically, he is much improved. Labs, x-rays, medications are reviewed. We will continue to follow, and make recommendations along the way. Prognosis is certainly guarded. Plan dated 07/27/2023. The patient seems to be improved from the respiratory status. Initially, in the intensive care unit, he was on AIRVO, at high flow nasal cannula, and is now been weaned down to 2 L by nasal cannula. Labs, x-rays, medications are reviewed. The patient's Decadron was stopped yesterday. We will continue to follow make recommendations along the way. Hopeful discharge in the next day or so. Respiratory status is much improved. Time with Patient: Less than 30
[2023-07-27 11:23] LABS: Glucose,Whole Blood 162 mg/dL (70-110)
[2023-07-27] MEDS: FUROSEMIDE 20 MG TAB PO SCH (11:51)
--- NOTE | 2023-07-27 13:37 | P.PN ---
Subjective Progress Note Date: 07/27/23 I am following-up with patient and he feels about the same. Objective - Vital Signs Vital signs: Vital Signs Temp 98.0 F 07/27/23 07:12 Pulse 55 L 07/27/23 07:12 Resp 14 07/27/23 07:12 BP 129/66 07/27/23 07:12 Pulse Ox 94 L 07/27/23 07:12 FiO2 40 07/22/23 19:53 Intake & Output 07/26/23 07/27/23 07/27/23 18:59 06:59 18:59 Intake Total 720 Output Total 650 700 Balance 70 -700 Intake: Oral 720 Output: Urine 650 700 - Exam GENERAL: The patient is sitting in a recliner chair and is not in acute distress. NEUROLOGICAL: Higher mental function: The patient is awake, alert, oriented to self, place and time. Patient is following commands. No aphasia and no neglect. Cranial nerves: The pupils are round, equal and reactive to light. Visual [place] are full to confrontation throughout. Initially had left eye closed but would open it. Had difficulty assessing EOM because of his cooperation. Facial sensation is normal to touch throughout. Has mild left lower facial weakness. Is very hard of hearing bilaterally. Tongue is midline and moved [id number] without any difficulty. No dysarthria is noted. Shoulder shrug is normal bilaterally. Motor: The strength is left upper extremity forearm extension is 3 on the left and right is 4, hand certified welding inspector are 3-4 (worse on the left). Had difficulty raising the left upper. Otherwise lifting lowers above gravity symmetrically. Slight decrease tone of the left upper. Normal bulk. Cerebellum: Difficulty performing because of weakness. Sensation: Sensation is normal to touch throughout. Reflexes (right/left): 1+ throughout. Plantars are mute bilaterally. Some other workup during his hospital visit consisted of: CT of head on 07/20/2023: It is reported as no acute intracranial processes. Nonspecific white matter changes, likely secondary due to chronic small vessel ischemic disease. I pressure review the CT head and I agree there is no acute or subacute ischemia. There is no bleed that was able to appreciate. CT cervical spine was reported as no evidence of cervical spine fracture. Mild to moderate multilevel degenerative disc disease. Lipid panel is triglyceride of 106, cholesterol 133, LDL 69, HDL 52 Hemoglobin A1c is 9.1. TSH is 0.939 Coronavirus PCR is detected Limited 2-D echo was reported as mildly impaired left ventricular systolic f unction with an anterolateral apical hypokinesis. [id number] mitral with mild tricuspid regurgitation Repeat CT head: Is reported acute intracranial process. Nonspecific white matter changes, likely secondary to chronic vessel ischemic disease. Repeat CT cervical: No evidence of cervical spine fracture. Moderate to severe multilevel degenerative disc disease with multilevel neural foraminal stenosis of varying degree. Carotid duplex is reported as less than 50% stenosis of bilateral carotid bifurcation. Nonvisualization of the left vertebral artery. - Labs CBC & Chem 7: 07/24/23 06:02 07/24/23 06:02 Labs: Abnormal Lab Results - Last 24 Hours (Table) 07/26/23 07/26/23 07/27/23 Range/Units 16:17 20:43 11:22 POC Glucose (mg/dL) 195 H 214 H 162 H (70-110) mg/dL Microbiology - Last 24 Hours (Table) 07/20/23 22:15 Blood Culture - Final Blood 07/20/23 22:30 Blood Culture - Final Blood Assessment and Plan Assessment: This is an 82-year-old gentleman who presented to the hospital because of shortness of breath and was found to have COVID-19 infection. He also has weakness of the left approximately more than the right for the past [address] of the head and cervical spine is negative for any acute or subacute changes Bilateral upper extremity weakness left more than right and I felt the patient had left facial droop: on CT of cervical spine feel the patient has hyperintense over the T1 T2 T3 on the anterior region over the CT. Also rule out stroke. 2 CT heads are negative Acute hypoxic respiratory failure and patient has acute COVID-19 infection. Acute non-ST elevation ID History of coronary artery disease status post stent Diabetes mellitus on insulin Hypertension Hyperlipidemia Remote ex-smoker Plan: Pending MRI Brain w/o. I ordered MRI Thoracic spine. I consulted orthopedic surgery team because of the hyperintense lesion over the T1 to 2 3 with bilateral upper extremity weakness. Patient is on aspirin 81 mg daily his home medication. IF MRI shows a cute/subacute stroke then start Plavix. Patient. Patient is on Lipitor 40 mg daily Every 4 hours neuro checks Cardiac monitoring PT and OT are consulted Cardiology and pulmonary team are on board We'll defer the rest of the medical management to primary team For DVT prophylaxis the patient is on subcu heparin 5000 units every 8 hours The plan was discussed with the patient and his nurse Dr. Jeong will start neurology service tomorrow A.M. Time with Patient: Less than 30
[2023-07-27 16:25] LABS: Glucose,Whole Blood 218 mg/dL (70-110)
--- NOTE | 2023-07-27 19:52 | PN ---
PROGRESS NOTE DATE OF SERVICE: 07/26/2023 CHIEF COMPLAINT: STEMI. HISTORY OF PRESENT ILLNESS: This gentleman has been doing very well. There is not any shortness of breath or chest pain. However, it was discovered that he had some weakness in the left arm and he is being worked up by Neurology. On confrontation, his left eye also droops slightly. It was noticed that when he wanted to do something with his right arm, he used his left arm to hold it up. On examination, he had a weak triceps on the left as well as on the right. The right biceps was also slightly weak. When he was asked to hold out both arms, he could not hold, the right went up. Vascular studies revealed that 1 vertebral artery is apparently occluded. REVIEW OF SYSTEMS: He denies any headaches, confusion, diplopia, etc. He is able to speak, swallow, and ambulate. PHYSICAL EXAMINATION: HEENT: He does have drooping in the left eye. Facial muscles seem to be normal in all 3 dermatomes on the right and the left. Carotids are normal. CHEST: Clear. CARDIAC: Normal. ABDOMEN: Soft, nontender. IMPRESSION: 1. ST elevation myocardial infarction. 2. 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 PLAN: Continue to monitor his neurologic status. MMODL / IJN: [id number] /
--- NOTE | 2023-07-27 20:06 | PN ---
PROGRESS NOTE DATE OF SERVICE: 07/27/2023 CHIEF COMPLAINT: STEMI and CVA. HISTORY OF PRESENT ILLNESS: This gentleman is doing much better today. The left eye is much more open and he feels that the weakness in both of his arms is improved as well. He has had no headache, chest pain, shortness of breath, etc. PHYSICAL EXAMINATION: VITAL SIGNS: Normal. HEENT: The left eye is definitely more open than it was yesterday. EXTREMITIES: Upper extremity strength seems to be slightly better as well. IMPRESSION: 1. ST elevation myocardial infarction. 2. Small pontine cerebrovascular accident. PLAN: Add Plavix 75 mg once a day to his aspirin regimen. MMODL / IJN: [id number] /
[2023-07-27 20:45] LABS: Glucose,Whole Blood 238 mg/dL (70-110)
[2023-07-27] MEDS: TAMSULOSIN 0.4 MG CAP.ER.24H PO SCH (21:04)
[2023-07-27] MEDS: INSULIN DETEMIR (LEVEMIR) 100 UNIT/ML SYR SQ SCH (21:05)
[2023-07-28] MEDS: HEPARIN SODIUM,PORCINE 5,000 UNIT/ML 1 ML VIAL SQ SCH ×3 (01:13→17:03)
[2023-07-28 05:27] LABS: Glucose,Whole Blood 136 mg/dL (70-110)
[2023-07-28] MEDS: INSULIN ASPART (NovoLOG) 100 UNIT/ML VIAL SQ SCH ×4 (06:24→21:02)
--- NOTE | 2023-07-28 07:37 | PN ---
PROGRESS NOTE DATE OF SERVICE: 07/25/2023 CHIEF COMPLAINT: NSTEMI. HISTORY OF PRESENT ILLNESS: This gentleman is doing well. He has no chest pain, shortness of breath, fever, chills, etc. He is doing quite well. He is up and moving about. He will be moving to [facility] care when bed is available. PHYSICAL EXAMINATION: CHEST: Clear. CARDIAC: Normal. ABDOMEN: Soft, nontender. EXTREMITIES: Normal. IMPRESSION: Non-ST elevation myocardial infarction. PLAN: Continue progressing post NH care and he will be going to rehab for a week or 2. MMODL / IJN: [id number] /
[2023-07-28] MEDS: PANTOPRAZOLE 40 MG/10 ML VIAL IVP SCH (08:08)
[2023-07-28] MEDS: amLODIPine 10 MG TAB PO SCH (09:26)
[2023-07-28] MEDS: FUROSEMIDE 20 MG TAB PO SCH (09:26)
[2023-07-28] MEDS: ASPIRIN 81 MG PO SCH (09:27)
[2023-07-28] MEDS: lisinopriL 5 MG TAB PO SCH ×2 (09:27→21:02)
[2023-07-28] MEDS: ATORVASTATIN 40 MG TAB PO SCH (09:27)
[2023-07-28] MEDS: CLOPIDOGREL 75 MG TAB PO SCH (09:27)
[2023-07-28] MEDS: ISOSORBIDE MONONITRATE ER 30 MG TAB.ER.24H PO SCH (09:27)
[2023-07-28] MEDS: METOPROLOL SUCCINATE (ER) 25 MG TAB.ER.24H PO SCH (09:27)
[2023-07-28 11:31] LABS: Glucose,Whole Blood 276 mg/dL (70-110)
--- NOTE | 2023-07-28 12:00 | P.PN ---
Subjective Progress Note Date: 07/28/23 HISTORY OF PRESENT ILLNESS: This is an 82-year-old male who is admitted to the hospital secondary to Covid, respiratory failure, and non-STEMI. Patient has been transferred out of the intensive care unit to the medical floor. Patient examined this morning. He is sitting up in the chair. Patient currently denies chest pain or pressure. He currently denies shortness of breath or cough. He remains on 2 L nasal cannula with oxygen saturations greater than 92%. Patient continues to report weakness of his left arm and is using his right arm to support his left arm at the time of examination. He states this is new since coming to the hospital. 07/28 The patient is seen today in follow-up. No new concerns. Breathing status is stable. He denies having any chest pain or pressure. He is undergoing neurology workup for left arm weakness. Blood pressure 122/56, heart rate in the 70s. Pulse ox 92% on 2 L nasal cannula. PHYSICAL EXAM: VITAL SIGNS: Reviewed. GENERAL: Well-developed in no acute distress. NECK: Supple. No JVD or thyromegaly LUNGS: Respirations even and unlabored. Lungs essentially clear to auscultation bilaterally. HEART: Regular rate and rhythm. S1 and S2 heard. Systolic murmur noted EXTREMITIES: Normal range of motion. No clubbing or cyanosis. Peripheral pulses intact. Trace bilateral lower extremity edema ASSESSMENT: Covid 19 Acute hypoxic respiratory failure Non-STEMI Multivessel coronary artery disease, previously felt not to be a candidate for percutaneous revascularization Mild cardiomyopathy, ejection fraction 45-50% Hypertension Hyperlipidemia Diabetes History of falls Possible history of CVA Former nicotine dependence PLAN: Continue current cardiac medications Continue with conservative management from a cardiac perspective Consult neurology secondary to left upper extremity weakness Cardiology will sign off this case and follow on an as-needed basis. Please reconsult for any new concerns. Patient may follow-up in the office in one to 2 weeks. Nurse practitioner note has been reviewed by physician. Signing provider agrees with the documented findings, assessment, and plan of care. Objective - Vital Signs Vital signs: Vital Signs Temp 97.6 F 07/28/23 06:57 Pulse 73 07/28/23 06:57 Resp 23 07/28/23 06:57 BP 122/56 07/28/23 06:57 Pulse Ox 92 L 07/28/23 06:57 FiO2 40 07/22/23 19:53 Intake & Output 07/27/23 07/28/23 07/28/23 18:59 06:59 18:59 Intake Total 1080 Output Total 550 800 Balance 530 -800 Intake: Oral 1080 Output: Urine 550 800 - Labs CBC & Chem 7: 07/24/23 06:02 07/24/23 06:02 Labs: Abnormal Lab Results - Last 24 Hours (Table) 07/27/23 07/27/23 07/27/23 Range/Units 11:22 16:23 20:37 POC Glucose (mg/dL) 162 H 218 H 238 H (70-110) mg/dL 07/28/23 Range/Units 05:20 POC Glucose (mg/dL) 136 H (70-110) mg/dL
--- NOTE | 2023-07-28 13:46 | P.PN ---
Subjective Progress Note Date: 07/28/23 I am seeing this patient in new consultation today 07/21/2023 in the intensive care unit after he was found to be short of breath and hypoxic while in the emergency room. He did test positive for COVID-19. He was also noted to have mild ST elevation in anterior leads on arrival. Patient was started on a heparin infusion, and admitted to the intensive care unit. Patient is an 82-year-old white male with past medical history significant for multivessel coronary artery disease, hypertension, hyperlipidemia, diabetes mellitus. While at home yesterday, he had an assisted fall to the ground. He states that he's been very weak over the last couple days. He states that his legs just "gave out". Denies losing consciousness. Since , he has progressively become more short of breath. Denies history of pulmonary disease. Admits associated cough with white sputum, chest congestion. Denies fevers, chills, wheezing, chest pain. States that his granddaughter did have a cold recently. He did test positive for COVID-19 on arrival. He is not vaccinated for COVID. He is currently lying in bed, on a 15 L nonrebreather, in no acute distress. He is hypoxic with an SpO2 of 86%. Chest CTA was negative for pulmonary embolism. It did show low lung volumes with pulmonary vascular congestion and cardiomegaly. There was also a right hemidiaphragm and right lower lobe infiltrate thought to represent atelectasis, however, superimposed pneumonia is not excluded. NT proBNP was 1800. Troponins elevated at 0.082 and 1.8 so far. EKG changes initially showed mild ST elevation in anterior leads, which improved with subsequent EKGs. There was also a right bundle-branch. Patient denies ever having any chest pain. He was started on a heparin infusion per protocol in the emergency room. Cardiology has evaluated the patient, and has elected medical management at this time. Most recent echocardiogram was from over 1 year ago and showed a preserved ejection fraction of 50-55% and moderate mitral regurgitation. CBC on arrival showed a WBC count of 6.8, hemoglobin 11.9, hematocrit 35.8, platelets 125. Baseline APTT is 25. CMP shows sodium 137, potassium 3.6, chloride 103, serum bicarbonate 23, BUN 19, creatinine 1.29, glucose 167. LFTs not elevated. Patient has been afebrile. Empirically started on a combination of azithromycin and Rocephin. Procalcitonin level ordered. CT of the brain and C-spine did not show any acute intracranial process or evidence of C-spine fracture. Patient will be monitored in the intensive care unit. The patient is seen today 07/22/2023 in follow-up in the intensive care unit. He is currently sitting up in bed. Awake and alert in no acute distress. He is currently on AirVo at 50 L and 50% FiO2 maintaining O2 saturations in the 90s. Echocardiogram revealed mildly impaired left ventricular systolic function with ejection fraction 45-50%. Today's chest x-ray reveals chronic changes but no acute pulmonary process. White count 4.2. Hemoglobin 11.6. Platelets 161. Sodium 138. Potassium 3.8. Bicarb 26. BUN 21. Creatinine 1.21. Hemoglobin A1c 9.1. Pro-calcitonin 0.13. TSH 0.939. He is currently in a -300 ML balance. Continued on Decadron. Heparin for DVT prophylaxis. The patient is seen today 07/23/2023 and follow-up in the intensive care unit. He is currently sitting up in a chair. He is awake and alert in no acute distress. He is on 12 L high flow nasal cannula. He denies any worsening shortness of breath, cough or congestion. Blood cultures reveal no growth. White count 4.3. Hemoglobin 12.4. Platelets 172. Sodium 139. Potassium 3.7. Bicarb 24. BUN 25. Creatinine 1.27. Glucose 160. He is continued on Decadron. Heparin for DVT prophylaxis. The patient is seen today 07/24/2023 in follow-up in the intensive care unit. He is awake and alert in no acute distress. Sitting up in a chair at the bedside. He is down to 10 L high flow nasal cannula. No IV fluids. Breathing a bit easier today compared to yesterday. White count 5.2. Hemoglobin 12.2. Platelets 194. Sodium 139. Potassium 4.0. Bicarb 28. BUN 29. Creatinine 1.20. Glucose 136. He is continued on Decadron. Heparin for DVT prophylaxis per The patient is seen today 07/25/2023 in follow-up in the intensive care unit. He is a regular medical floor overflow. He is sitting up in a chair at the bedside. Awake and alert in no acute distress. He is maintaining good O2 saturations on 2 L/m per nasal cannula. Continues to improve daily. He is continued on Decadron, heparin for DVT prophylaxis. Glucose 169. Progress note dated 07/26/2023. The patient is seen today in room 454. Yesterday, he was still in the intensive care unit. The patient is currently on 2 L of oxygen. He is not receiving any IV fluids. Discontinue the Decadron today. He's feeling much improved, and is hoping be discharged in the near future. No new labs today other than a glucose of 135. Blood cultures are currently negative. Progress note dated 07/27/2023. The patient is seen today in room 454. He continues on oxygen at 2 L. He is at receiving any IV fluids. The patient is feeling much improved. Labs today only included glucose of 100. Blood cultures are currently negative. Decadron was discontinued yesterday. on today's evaluation of 07/28/2023, seeing the patient for a follow-up. 82-year-old male patient with multivessel coronary artery disease, hypertension hyperlipidemia and diabetes mellitus. The patient presented to us withacute hypoxic respiratory failure secondary to diastolic heart failure and a Covid [address] angiogram of the chest that was on time of admission showed no evidence of any pulmonary embolism. The patient was treated with steroids and the patient completed his course of Decadron. He is doing well. He remains on 2 L of Oxymizer nasal cannula. He is still weak. He is unable to emanate independently. He has a walker the bedside. No nausea. No vomiting. No d iarrhea. No abdominal pain. He would benefit from rehabilitation. He may also need oxygen at a time of discharge and appropriate remained.no new labs from today. The patient is on aspirin and Plavix. The patient is on Levemir insulin 10 units and a sliding scale coverage. The patient remains on metoprolol XL 25 mg by mouth daily. Objective - Vital Signs Vital signs: Vital Signs Temp 97.6 F 07/28/23 06:57 Pulse 73 07/28/23 06:57 Resp 23 07/28/23 06:57 BP 122/56 07/28/23 06:57 Pulse Ox 92 L 07/28/23 06:57 FiO2 40 07/22/23 19:53 Intake & Output 07/27/23 07/28/23 07/28/23 18:59 06:59 18:59 Intake Total 1080 Output Total 550 800 Balance 530 -800 Intake: Oral 1080 Output: Urine 550 800 - Exam No acute distress, oriented 3. Currently on 2 L of oxygen. Saturations are 94%. HEENT examination is grossly unremarkable. Mucous membranes are moist. No oral lesions. Neck supple. Full range of motion. No adenopathy thyromegaly or neck vein distention. Cardiovascular examination reveals regular rhythm rate. S1-S2 normal. No S3 or S4. No discernible murmur noted. Lungs reveal scattered rhonchi. No wheezes or crackles. Breath sounds are equal bilaterally. The patient is currently on 2 L of oxygen. Abdomen soft bowel sounds are heard. No masses or tenderness. Extremities are intact. No cyanosis clubbing or edema. Skin is without rash or lesion. Neurologic examination is brief but nonfocal. - Labs CBC & Chem 7: 07/24/23 06:02 07/24/23 06:02 Labs: Abnormal Lab Results - Last 24 Hours (Table) 07/27/23 07/27/23 07/27/23 Range/Units 11:22 16:23 20:37 POC Glucose (mg/dL) 162 H 218 H 238 H (70-110) mg/dL 07/28/23 Range/Units 05:20 POC Glucose (mg/dL) 136 H (70-110) mg/dL Assessment and Plan Plan: Acute hypoxemic respiratory failure, likely multifactorial, related to suspected exacerbation of diastolic congestive heart failure and acute COVID-19 infection. Chest CTA was negative for pulmonary embolism. the patient remains on 2 L of oxygen by nasal cannula. Acute COVID-19 infection. completed decadron Acute non- ST elevation [place].currently family chest pain Multivessel coronary artery disease, recent left heart catheterization 05/02/2022, showed 40% stenosis of the left main, 80% stenosis of the mid LAD, 40% stenosis of left circumflex, 90% stenosis of the RCA, and 100% stenosis of the PDA. Diabetes mellitus2, insulin-dependent. Hyperlipidemia. Benign essential hypertension. Fall. Obesity with a BMI of 32.5 kg/m. Remote ex-smoker. Plan: increase mobility May need rehabilitation at time of discharge maintain reduction therapy at time of discharge and the patient currently on 2 L of oxygen by nasal cannula. Continue rest of the medications Full CODE STATUS Continue to follow
[2023-07-28 16:43] LABS: Glucose,Whole Blood 171 mg/dL (70-110)
--- NOTE | 2023-07-28 16:53 | MR ---
EXAMINATION TYPE: MR brain wo con DATE OF EXAM: 07/28/2023 4:37 PM CLINICAL INDICATION:Male, 82 years old with history of stroke. arm weakness left > right; PHH, Stroke , arm weakness more in left than right COMPARISON: 07/26/2023. TECHNIQUE: Multi planar, multi sequence imaging was performed through the brain including: T1, T2, In version recovery, Diffusion weighted imaging, and gradient echo imaging. No gadolinium was given. FINDINGS: Ventricular dilation in proportion to cerebral atrophy. Prominent perivascular spaces in the basal ga nglia. The gardiner-white junctions, ventricular system, and cisterns appear unremarkable. Scattered foc i of high T2 signal intensity are seen within the periventricular white matter. Midline structures sh ow no abnormality. Diffusion-weighted imaging shows no evidence of restricted diffusion. The suscepti bility weighted images do not reveal any evidence for micro-hemorrhage. The bone marrow signal is within normal limits. Paranasal sinuses and mastoid air cells: No significant paranasal sinus disease. High T2 signal in th e bilateral mastoid air cells. Visualized orbits: Bilaterally aphakia. IMPRESSION: 1. No evidence of intracranial mass or acute/subacute infarct. 2. Nonspecific white matter changes, likely secondary to small vessel ischemic disease. 3. Trace bilateral mastoid air cell effusions.
--- NOTE | 2023-07-28 17:44 | P.CNOR ---
History of Present Illness - [facility] Consult date: 07/28/23 Consult reason: other (Bilateral upper extremity weakness) History of present illness: Patient is an 82-year-old male who was admitted to [facility] on 07/20/2023 with concerns of a non-STEMI. Patient was brought in by EMS after falling at home, he was on the ground for quite some time before being brought to the hospital. Patient underwent multiple imaging and lab tests. Patient is being followed by multiple medical specialties at this time. Since being in hospital, patient has noticed significant weakness in his left upper extremity and also right lower extremity, this is new he states prior to be in the hospital. Neurology has been evaluating the patient also, they have ordered a thoracic MRI due to some abnormal findings that were noted on the cervical spine CT. Our orthopedic team was then consulted with regards to bilateral upper extremity weakness and abnormal CT findings. Patient was evaluated today at bedside, he is resting comfortably in his hospital chair. Patient was visualized ambulate with the assistance of an aid with his walker from the restroom back to his chair. Patient states that the upper extremity weakness is new compared to his previous fall on 07/20/2023. Patient is dealt with Dupuytren's contracture in his bilateral hands for quite some time, he has never had any surgical intervention for this. Patient does note some vague numbness and tingling in the bilateral upper extremity, it is not consistent. Patient states that his bilateral lower extremities give him no problems at this time. He is been ambulating with minimal difficulty. Patient states that he has been urinating with no issues, his bowel movements have been regular. Patient denies any paresthesias to bilateral lower extremities. Patient denies any numbness or tingling to the genital or peroneal region at this time. Review of Systems Constitutional: Reports as per HPI Past Medical History Past Medical History: Diabetes Mellitus, Hypertension Additional Past Medical History / Comment(s): POSSIBLE CVA 2007-NO DEFICITS History of Any Multi-Drug Resistant Organisms: None Reported Past Surgical History: Adenoidectomy, Appendectomy, Cholecystectomy, Orthopedic Surgery, Tonsillectomy Additional Past Surgical History / Comment(s): eye lid surgery Past Anesthesia/Blood Transfusion Reactions: No Reported Reaction Past Psychological History: No Psychological Hx Reported Smoking Status: Former smoker Past Alcohol Use History: Occasional Past Drug Use History: None Reported - Past Family History Brother(s) Family Medical History: Cancer Medications and Allergies Home Medications Medication Instructions Recorded Confirmed Type Atorvastatin [Lipitor] 10 mg PO HS 04/29/22 07/20/23 History Furosemide [Lasix] 20 mg PO DAILY 04/29/22 07/20/23 History Gabapentin 300 mg PO TID 04/29/22 07/20/23 History Glimepiride [Amaryl] 2 mg PO DAILY 04/29/22 07/20/23 History Metoprolol Succinate (ER) [Toprol 25 mg PO DAILY 04/29/22 07/20/23 History Xl] Omeprazole 20 mg PO BID 04/29/22 07/20/23 History Pioglitazone [Actos] 15 mg PO DAILY 04/29/22 07/20/23 History Tamsulosin [Flomax] 0.8 mg PO HS 04/29/22 07/20/23 History amLODIPine BESYLATE/BENAZEPRIL 1 cap PO DAILY 04/29/22 07/20/23 History [amLODIPine BESYLATE/BENAZEPRIL 10-40 mg] metFORMIN HCL 1,000 mg PO BID 04/29/22 07/20/23 History Dulaglutide [Trulicity] 1.5 mg SQ RIDLEY 07/20/23 07/20/23 History Insulin Glargine,Hum.rec.anlog 6 units SQ DAILY@1700 07/20/23 07/20/23 History [Lantus Solostar Pen] traZODone HCL [Desyrel] 50 mg PO HS PRN 07/20/23 07/20/23 History Allergies Allergy/AdvReac Type Severity Reaction Status Date / Time No Known Allergies Allergy Verified 07/20/23 20:02 Physical Examination Gen: AOx3, NAD VSS stable at this time Integument: No open lesions, sores, areas of erythema are visualized throughout the cervical, thoracic or lumbar spine Palpation: No tenderness with palpation noted throughout the cervical, thoracic or lumbar spine] ROM: Range of motion is significantly limited with the bilateral upper extremities with shoulder elevation shoulder abduction, elbow extension, elbow flexion, wrist extension, wrist flexion, tufter operator are intact Full range of motion in bilateral lower extremities, no focal deficits appreciated Sensory Exam: Senory exam to light touch is intact C5-T1 Senosry exam to light touch is intact L2-S1 Motor: Strength was difficult to assess with regards to shoulder elevation and abduction of bilateral upper extremities, 4/5 strength appreciated in the bilateral upper extremities with elbow extension, elbow flexion, wrist extension, wrist flexion, tufter operator 4/5 strength appreciated in the bilateral lower extremities with hip flexion, knee extension, knee flexion, plantar flexion, dorsiflexion, EHL, FHL Reflexes: Negative Elder's bilaterally Negative clonus bilaterally Negative Babinski bilaterally Special Test: Negative straight leg raise bilaterally Results - Labs Labs: Abnormal Lab Results - Last 24 Hours (Table) 07/27/23 07/27/23 07/28/23 Range/Units 16:23 20:37 05:20 POC Glucose (mg/dL) 218 H 238 H 136 H (70-110) mg/dL 07/28/23 Range/Units 11:30 POC Glucose (mg/dL) 276 H (70-110) mg/dL H & H 07/20/23 07/21/23 07/22/23 Range/Units 18:44 06:58 05:27 Hgb 11.9 L 11.2 L 11.6 L (13.0-17.5) gm/dL Hct 35.8 L 33.6 L 35.0 L (39.0-53.0) % 07/23/23 07/24/23 Range/Units 04:13 06:02 Hgb 12.4 L 12.2 L (13.0-17.5) gm/dL Hct 38.1 L 36.7 L (39.0-53.0) % Coagulation 07/20/23 07/21/23 Range/Units 18:44 06:58 INR 1.0 1.1 (<1.2) Result Diagrams: 07/24/23 06:02 07/24/23 06:02 - Diagnostic results Shoulder x-ray: report reviewed, image reviewed (No acute fractures or dislocations are noted of the left shoulder. Images demonstrate severe acromioclavicular joint osteoarthritis along with mild to moderate glenohumeral joint osteoarthritis) Cervical MRI with/without contrast: report reviewed CT scan - cervical: report reviewed, image reviewed (Images and reports were reviewed, no acute fractures or dislocations. 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 Mcgee. Patient is demonstrating no acute neuropathic signs, no emergent spine surgical intervention recommended at this time. Neurology did order an MRI of the thoracic spine, I did add cervical spine MRI for further evaluation, await imaging and reports Patient was unable to provide a very detailed description of the fall that occurred prior to his hospital admission. Rotator cuff pathology cannot be ruled out of the left shoulder at this time. Pain control, patient denies any acute pain involving the upper extremities or neck at this time. Would recommend use of Tylenol if needed DVT prophylaxis, primary medical recommendations Weight-bear as tolerated with walker and assistance PT/OT Other medical specialty recommendations appreciated Further recommendations to follow, we will continue to follow patient during hospital stay Time with Patient: Less than 30
[2023-07-28 19:37] LABS: Glucose,Whole Blood 203 mg/dL (70-110)
--- NOTE | 2023-07-28 20:03 | P.PN ---
Subjective Progress Note Date: 07/28/23 Patient initially seen by Dr. Arnold Peralta. Please refer to his note for details. Patient is a 82-year-old male with bilateral arm weakness (left > right) and Dr. Peralta felt seems thoracic. Pending MRI Brain and thoracic spine. Orthopedic spine was consulted, and they recommended an MRI of the cervical spine as well. Patient states his arms are still weak, left more than right. Denies any headache, complains of fuzzy vision, mainly because of eyes being tired. His legs are okay. He is able to walk with assistance going to the bathroom. Some other workup during his hospital visit consisted of: CT of head on 07/20/2023: It is reported as no acute intracranial processes. Nonspecific white matter changes, likely secondary due to chronic small vessel ischemic disease. I pressure review the CT head and I agree there is no acute or subacute ischemia. There is no bleed that was able to appreciate. CT cervical spine was reported as no evidence of cervical spine fracture. Mild to moderate multilevel degenerative disc disease. Lipid panel is triglyceride of 106, cholesterol 133, LDL 69, HDL 52 Hemoglobin A1c is 9.1. TSH is 0.939 Coronavirus PCR is detected Limited 2-D echo was reported as mildly impaired left ventricular systolic function with an anterolateral apical hypokinesis. [id number] mitral with mild tricuspid regurgitation Repeat CT head: Is reported acute intracranial process. Nonspecific white matter changes, likely secondary to chronic vessel ischemic disease. Repeat CT cervical: No evidence of cervical spine fracture. Moderate to severe multilevel degenerative disc disease with multilevel neural foraminal stenosis of varying degree. Carotid duplex is reported as less than 50% stenosis of bilateral carotid bifurcation. Nonvisualization of the left vertebral artery. Objective - Vital Signs Vital signs: Vital Signs Temp 97.6 F 07/28/23 06:57 Pulse 73 07/28/23 06:57 Resp 23 07/28/23 06:57 BP 122/56 07/28/23 06:57 Pulse Ox 92 L 07/28/23 06:57 FiO2 40 07/22/23 19:53 Intake & Output 07/27/23 07/28/23 07/28/23 18:59 06:59 18:59 Intake Total 1080 Output Total 550 800 Balance 530 -800 Intake: Oral 1080 Output: Urine 550 800 - Exam Patient is an elderly male, very pleasant, appears to be in mild distress. He is slightly short of breath. Patient is alert and awake oriented to time place and person. He knows it is 07/28/2023 and that he is in [facility] in [place]. His speech and language functions are normal. Cranial nerves are significant for bilateral ptosis, left more than right. Extraocular muscles are intact. Face is symmetric and tongue protrudes the midline. On muscle strength testing, (right/left) deltoid 4/4, biceps 4+/4, triceps 4+/4, hip flexion 4/4, ankle dorsiflexion 5/5. Sensations are equal. No ataxia for [id number] testing. - Labs CBC & Chem 7: 07/24/23 06:02 07/24/23 06:02 Labs: Abnormal Lab Results - Last 24 Hours (Table) 07/27/23 07/27/23 07/28/23 Range/Units 16:23 20:37 05:20 POC Glucose (mg/dL) 218 H 238 H 136 H (70-110) mg/dL 07/28/23 Range/Units 11:30 POC Glucose (mg/dL) 276 H (70-110) mg/dL Assessment and Plan Assessment: This is an 82-year-old gentleman who presented to the hospital because of shortness of breath and was found to have COVID-19 infection. He also has weakness of the left upper extremity more than the right for the past [address] of the head and cervical spine is negative for any acute or subacute changes Bilateral upper extremity weakness left more than right and I felt the patient had left facial droop: on CT of cervical spine revealed the patient has hyperintense over the T1 T2 T3 on the anterior region over the CT. Also rule out stroke. 2 CT heads are negative Acute hypoxic respiratory failure and patient has acute COVID-19 infection. Acute non-ST elevation CA History of coronary artery disease status post stent Diabetes mellitus on insulin Hypertension Hyperlipidemia Remote ex-smoker Plan: MRI Brain w/o revealed no mass lesion. No acute or subacute ischemic stroke. Some small vessel disease. Trace mastoid air cell effusion. I personally rev iewed MRI agree with the findings. Continue aspirin 81 mg daily, which is his home medication. Await MRI of the cervical and thoracic spines. Orthopedic spine on board. Patient is on Lipitor 40 mg daily Every 4 hours neuro checks Cardiac monitoring PT and OT are consulted Cardiology and pulmonary team are on board We'll defer the rest of the medical management to primary team For DVT prophylaxis the patient is on subcu heparin 5000 units every 8 hours
[2023-07-28] MEDS: TAMSULOSIN 0.4 MG CAP.ER.24H PO SCH (21:02)
[2023-07-28] MEDS: INSULIN DETEMIR (LEVEMIR) 100 UNIT/ML SYR SQ SCH (21:02)
--- NOTE | 2023-07-28 21:10 | PN ---
PROGRESS NOTE DATE OF SERVICE: 07/28/2023 CHIEF COMPLAINT: Status post STEMI. HISTORY OF PRESENT ILLNESS: This gentleman is doing a little bit better yesterday than he is today. He states that he noted during the night that his arms felt "heavy" again. It is also noted today that his left thigh is drooping slightly. REVIEW OF SYSTEMS: He denies any headaches, change in his vision, chest pain, shortness of breath, headache, etc. PHYSICAL EXAMINATION: VITAL SIGNS: Normal. HEENT: The left eye is drooping again slightly. The weakness in the upper extremities might be a little bit less. IMPRESSION: 1. Probable lacunar infarct (s). 2. Status post ST elevation myocardial infarction. PLAN: Continue with current medication along with PT and OT. He will be going to an extended care facility eventually. MMKATL / ALEJANDRON: [id number] /
[2023-07-29] MEDS: HEPARIN SODIUM,PORCINE 5,000 UNIT/ML 1 ML VIAL SQ SCH ×4 (00:13→23:58)
[2023-07-29 05:16] LABS: Glucose,Whole Blood 131 mg/dL (70-110)
[2023-07-29] MEDS: INSULIN ASPART (NovoLOG) 100 UNIT/ML VIAL SQ SCH ×4 (05:38→21:20)
[2023-07-29] MEDS: ISOSORBIDE MONONITRATE ER 30 MG TAB.ER.24H PO SCH (07:59)
[2023-07-29] MEDS: lisinopriL 5 MG TAB PO SCH ×2 (07:59→21:20)
[2023-07-29] MEDS: METOPROLOL SUCCINATE (ER) 25 MG TAB.ER.24H PO SCH (07:59)
[2023-07-29] MEDS: amLODIPine 10 MG TAB PO SCH (07:59)
[2023-07-29] MEDS: ATORVASTATIN 40 MG TAB PO SCH (07:59)
[2023-07-29] MEDS: CLOPIDOGREL 75 MG TAB PO SCH (07:59)
[2023-07-29] MEDS: FUROSEMIDE 20 MG TAB PO SCH (07:59)
[2023-07-29] MEDS: ASPIRIN 81 MG PO SCH (07:59)
[2023-07-29] MEDS: PANTOPRAZOLE 40 MG/10 ML VIAL IVP SCH (10:10)
--- NOTE | 2023-07-29 10:56 | P.PN ---
Subjective Progress Note Date: 07/29/23 Principal diagnosis: Bilateral upper extremity weakness Patient was evaluated today at bedside, he is resting in his hospital chair. Patient symptoms with regards to left upper extremity remain about the same, his range of motion the right upper extremity is slightly improved. Patient's when he is lying in bed he's able to lift both arms up over his head. Patient did have the MRI of the brain yesterday, this was negative for any acute stroke. He was unable to tolerate lying flat with breathing difficulties for the cervical and thoracic MRI. Objective - Vital Signs Vital signs: Vital Signs Temp 97.7 F 07/29/23 07:08 Pulse 76 07/29/23 07:08 Resp 17 07/29/23 07:08 BP 117/62 07/29/23 07:08 Pulse Ox 92 L 07/29/23 07:08 FiO2 40 07/22/23 19:53 Intake & Output 07/28/23 07/29/23 07/29/23 18:59 06:59 18:59 Other: # Voids 2 3 # Bowel Movements 3 1 - Exam Gen: AOx3, NAD VSS stable at this time Integument: No open lesions, sores, areas of erythema are visualized throughout the cervical, thoracic or lumbar spine Palpation: No tenderness with palpation noted throughout the cervical, thoracic or lumbar spine] ROM: Range of motion is significantly limited with the bilateral upper extremities with shoulder elevation shoulder abduction, elbow extension, elbow flexion, wrist extension, wrist flexion, veneer glue jointer feedback are intact Full range of motion in bilateral lower extremities, no focal deficits appreciated Sensory Exam: Senory exam to light touch is intact C5-T1 Senosry exam to light touch is intact L2-S1 Motor: Strength was difficult to assess with regards to shoulder elevation and abduction of bilateral upper extremities, 4/5 strength appreciated in the bilateral upper extremities with elbow extension, elbow flexion, wrist extension, wrist flexion, veneer glue jointer feedback 4/5 strength appreciated in the bilateral lower extremities with hip flexion, knee extension, knee flexion, plantar flexion, dorsiflexion, EHL, FHL Reflexes: Negative Elder's bilaterally Negative clonus bilaterally Negative Babinski bilaterally Special Test: Negative straight leg raise bilaterally - Labs CBC & Chem 7: 07/24/23 06:02 07/24/23 06:02 Labs: Abnormal Lab Results - Last 24 Hours (Table) 07/28/23 07/28/23 07/28/23 Range/Units 11:30 16:42 19:36 POC Glucose (mg/dL) 276 H 171 H 203 H (70-110) mg/dL 07/29/23 Range/Units 05:15 POC Glucose (mg/dL) 131 H (70-110) mg/dL Assessment and Plan Assessment: Bilateral upper extremity weakness, left worse than right Multilevel cervical spondylosis along with varying degrees of neural foraminal and central canal stenosis 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 Would recommend use of Tylenol if needed DVT prophylaxis, primary medical recommendations Weight-bear as tolerated with walker and assistance PT/OT Other medical specialty recommendations appreciated Further recommendations to follow, we will continue to follow patient during hospital stay Time with Patient: Less than 30
[2023-07-29 11:23] LABS: Glucose,Whole Blood 183 mg/dL (70-110)
--- NOTE | 2023-07-29 11:24 | P.PN ---
Subjective Progress Note Date: 07/29/23 I am seeing this patient in new consultation today 07/21/2023 in the intensive care unit after he was found to be short of breath and hypoxic while in the emergency room. He did test positive for COVID-19. He was also noted to have mild ST elevation in anterior leads on arrival. Patient was started on a heparin infusion, and admitted to the intensive care unit. Patient is an 82-year-old white male with past medical history significant for multivessel coronary artery disease, hypertension, hyperlipidemia, diabetes mellitus. While at home yesterday, he had an assisted fall to the ground. He states that he's been very weak over the last couple days. He states that his legs just "gave out". Denies losing consciousness. Since , he has progressively become more short of breath. Denies history of pulmonary disease. Admits associated cough with white sputum, chest congestion. Denies fevers, chills, wheezing, chest pain. States that his granddaughter did have a cold recently. He did test positive for COVID-19 on arrival. He is not vaccinated for COVID. He is currently lying in bed, on a 15 L nonrebreather, in no acute distress. He is hypoxic with an SpO2 of 86%. Chest CTA was negative for pulmonary embolism. It did show low lung volumes with pulmonary vascular congestion and cardiomegaly. There was also a right hemidiaphragm and right lower lobe infiltrate thought to represent atelectasis, however, superimposed pneumonia is not excluded. NT proBNP was 1800. Troponins elevated at 0.082 and 1.8 so far. EKG changes initially showed mild ST elevation in anterior leads, which improved with subsequent EKGs. There was also a right bundle-branch. Patient denies ever having any chest pain. He was started on a heparin infusion per protocol in the emergency room. Cardiology has evaluated the patient, and has elected medical management at this time. Most recent echocardiogram was from over 1 year ago and showed a preserved ejection fraction of 50-55% and moderate mitral regurgitation. CBC on arrival showed a WBC count of 6.8, hemoglobin 11.9, hematocrit 35.8, platelets 125. Baseline APTT is 25. CMP shows sodium 137, potassium 3.6, chloride 103, serum bicarbonate 23, BUN 19, creatinine 1.29, glucose 167. LFTs not elevated. Patient has been afebrile. Empirically started on a combination of azithromycin and Rocephin. Procalcitonin level ordered. CT of the brain and C-spine did not show any acute intracranial process or evidence of C-spine fracture. Patient will be monitored in the intensive care unit. The patient is seen today 07/22/2023 in follow-up in the intensive care unit. He is currently sitting up in bed. Awake and alert in no acute distress. He is currently on AirVo at 50 L and 50% FiO2 maintaining O2 saturations in the 90s. Echocardiogram revealed mildly impaired left ventricular systolic function with ejection fraction 45-50%. Today's chest x-ray reveals chronic changes but no acute pulmonary process. White count 4.2. Hemoglobin 11.6. Platelets 161. Sodium 138. Potassium 3.8. Bicarb 26. BUN 21. Creatinine 1.21. Hemoglobin A1c 9.1. Pro-calcitonin 0.13. TSH 0.939. He is currently in a -300 ML balance. Continued on Decadron. Heparin for DVT prophylaxis. The patient is seen today 07/23/2023 and follow-up in the intensive care unit. He is currently sitting up in a chair. He is awake and alert in no acute distress. He is on 12 L high flow nasal cannula. He denies any worsening shortness of breath, cough or congestion. Blood cultures reveal no growth. White count 4.3. Hemoglobin 12.4. Platelets 172. Sodium 139. Potassium 3.7. Bicarb 24. BUN 25. Creatinine 1.27. Glucose 160. He is continued on Decadron. Heparin for DVT prophylaxis. The patient is seen today 07/24/2023 in follow-up in the intensive care unit. He is awake and alert in no acute distress. Sitting up in a chair at the bedside. He is down to 10 L high flow nasal cannula. No IV fluids. Breathing a bit easier today compared to yesterday. White count 5.2. Hemoglobin 12.2. Platelets 194. Sodium 139. Potassium 4.0. Bicarb 28. BUN 29. Creatinine 1.20. Glucose 136. He is continued on Decadron. Heparin for DVT prophylaxis per The patient is seen today 07/25/2023 in follow-up in the intensive care unit. He is a regular medical floor overflow. He is sitting up in a chair at the bedside. Awake and alert in no acute distress. He is maintaining good O2 saturations on 2 L/m per nasal cannula. Continues to improve daily. He is continued on Decadron, heparin for DVT prophylaxis. Glucose 169. Progress note dated 07/26/2023. The patient is seen today in room 454. Yesterday, he was still in the intensive care unit. The patient is currently on 2 L of oxygen. He is not receiving any IV fluids. Discontinue the Decadron today. He's feeling much improved, and is hoping be discharged in the near future. No new labs today other than a glucose of 135. Blood cultures are currently negative. Progress note dated 07/27/2023. The patient is seen today in room 454. He continues on oxygen at 2 L. He is at receiving any IV fluids. The patient is feeling much improved. Labs today only included glucose of 100. Blood cultures are currently negative. Decadron was discontinued yesterday. on today's evaluation of 07/28/2023, seeing the patient for a follow-up. 82-year-old male patient with multivessel coronary artery disease, hypertension hyperlipidemia and diabetes mellitus. The patient presented to us withacute hypoxic respiratory failure secondary to diastolic heart failure and a Covid [address] angiogram of the chest that was on time of admission showed no evidence of any pulmonary embolism. The patient was treated with steroids and the patient completed his course of Decadron. He is doing well. He remains on 2 L of Oxymizer nasal cannula. He is still weak. He is unable to emanate independently. He has a walker the bedside. No nausea. No vomiting. No d iarrhea. No abdominal pain. He would benefit from rehabilitation. He may also need oxygen at a time of discharge and appropriate remained.no new labs from today. The patient is on aspirin and Plavix. The patient is on Levemir insulin 10 units and a sliding scale coverage. The patient remains on metoprolol XL 25 mg by mouth daily. 07/29/2023, the patient is essentially stable. No new complaints. He remains on oxygen 2 L per minute nasal cannula. He has completed his course of steroids. No chest pain. No shortness of breath. No new labs from today. He remains on 2 L of oxygen by nasal cannula with a pulse ox of 92%. Rest of the medications remain unchanged. He remains on aspirin and Plavix. Remains on Lipitor. Remains on Levemir insulin 10 units along with a sliding scale c overage. Blood sugar control is adequate for now in the morning blood sugars at 131. Objective - Vital Signs Vital signs: Vital Signs Temp 97.7 F 07/29/23 07:08 Pulse 76 07/29/23 07:08 Resp 17 07/29/23 07:08 BP 117/62 07/29/23 07:08 Pulse Ox 92 L 07/29/23 07:08 FiO2 40 07/22/23 19:53 Intake & Output 07/28/23 07/29/23 07/29/23 18:59 06:59 18:59 Other: # Voids 2 3 # Bowel Movements 3 1 - Exam No acute distress, oriented 3. Currently on 2 L of oxygen. Saturations are 94%. HEENT examination is grossly unremarkable. Mucous membranes are moist. No oral lesions. Neck supple. Full range of motion. No adenopathy thyromegaly or neck vein distention. Cardiovascular examination reveals regular rhythm rate. S1-S2 normal. No S3 or S4. No discernible murmur noted. Lungs reveal scattered rhonchi. No wheezes or crackles. Breath sounds are equal bilaterally. The patient is currently on 2 L of oxygen. Abdomen soft bowel sounds are heard. No masses or tenderness. Extremities are intact. No cyanosis clubbing or edema. Skin is without rash or lesion. Neurologic examination is brief but nonfocal. - Labs CBC & Chem 7: 07/24/23 06:02 07/24/23 06:02 Labs: Abnormal Lab Results - Last 24 Hours (Table) 07/28/23 07/28/23 07/28/23 Range/Units 11:30 16:42 19:36 POC Glucose (mg/dL) 276 H 171 H 203 H (70-110) mg/dL 07/29/23 Range/Units 05:15 POC Glucose (mg/dL) 131 H (70-110) mg/dL Assessment and Plan Plan: Acute hypoxemic respiratory failure, likely multifactorial, related to suspected exacerbation of diastolic congestive heart failure and acute COVID-19 infection. Chest CTA was negative for pulmonary embolism. the patient remains on 2 L of oxygen by nasal cannula. Acute COVID-19 infection. completed decadron Acute non- ST elevation SD.currently family chest pain Multivessel coronary artery disease, recent left heart catheterization 2021, showed 40% stenosis of the left main, 80% stenosis of the mid LAD, 40% stenosis of left circumflex, 90% stenosis of the RCA, and 100% stenosis of the PDA. Diabetes mellitus2, insulin-dependent. Hyperlipidemia. Benign essential hypertension. Fall. Obesity with a BMI of 32.5 kg/m. Remote ex-smoker. Plan: Patient is stable on 2 L of oxygen by nasal cannula Provide incentive spirometer increase mobility May need rehabilitation at time of discharge maintain reduction therapy at time of discharge and the patient currently on 2 L of oxygen by nasal cannula. Continue rest of the medications Full CODE STATUS Continue to follow
[2023-07-29 13:11] LABS: ALT 30 U/L (4-49); AST 28 U/L (17-59); African American GFR (CKD) 63 (>60 ml/min/1.73 sqM); Albumin/Globulin Ratio 1.3; Alkaline Phosphatase 86 U/L (38-126); Anion Gap 9 mmol/L; Blood Urea Nitrogen 26 mg/dL (9-20); Calcium 9.4 mg/dL (8.4-10.2); Carbon Dioxide 28 mmol/L (22-30); Chloride 99 mmol/L (98-107); Globulin 3.1 g/dL; Glucose 179 mg/dL (74-99); Non-African American GFR(CKD) 55 (>60 ml/min/1.73 sqM); Potassium 4.6 mmol/L (3.5-5.1); Sodium 136 mmol/L (137-145); Total Bilirubin 1.7 mg/dL (0.2-1.3); Total Protein 7.1 g/dL (6.3-8.2)
[2023-07-29 13:37] VITALS: BMI 32.2
[2023-07-29 15:28] LABS: Basophils # (A) 0.02 X 10*3/uL (0.00-0.10); Basophils % (A) 0.2 %; Eosinophils % (A) 1.1 %; HCT 42.3 % (39.6-50.0); HGB 13.4 g/dL (13.0-17.0); Lymphocytes # (A) 0.88 X 10*3/uL (0.90-5.00); Lymphocytes % (A) 9.6 %; MCH 30.4 pg (27.0-32.0); MCHC 31.7 g/dL (32.0-37.0); MCV 95.9 FL (80.0-97.0); Mean Platelet Volume 12.2 FL (9.5-12.2); Monocytes # (A) 0.62 X 10*3/uL (0.20-1.00); Monocytes % (A) 6.8 %; NRBC Per 100 WBC 0 X 10*3/uL (0.00-0.01); Neutrophils # (A) 7.46 X 10*3/uL (1.80-7.70); Neutrophils % (A) 81.8 %; Platelet Count 239 X 10*3/uL (140-440); RBC 4.41 X 10*6/uL (4.40-5.60); RDW 13.7 % (11.5-14.5); WBC 9.13 X 10*3/uL (4.50-10.00)
[2023-07-29 16:43] LABS: Glucose,Whole Blood 210 mg/dL (70-110)
[2023-07-29 19:33] LABS: Glucose,Whole Blood 164 mg/dL (70-110)
[2023-07-29] MEDS: TAMSULOSIN 0.4 MG CAP.ER.24H PO SCH (21:20)
[2023-07-29] MEDS: INSULIN DETEMIR (LEVEMIR) 100 UNIT/ML SYR SQ SCH (21:20)
[2023-07-29] MEDS: ARTIFICIAL TEARS-HYPROMELLOSE DROPS 15 ML BTL BOTH EYES PRN (22:16)
[2023-07-30 05:14] LABS: Glucose,Whole Blood 149 mg/dL (70-110)
[2023-07-30] MEDS: INSULIN ASPART (NovoLOG) 100 UNIT/ML VIAL SQ SCH ×4 (05:17→20:31)
[2023-07-30] MEDS: HEPARIN SODIUM,PORCINE 5,000 UNIT/ML 1 ML VIAL SQ SCH ×3 (08:09→23:25)
[2023-07-30] MEDS: METOPROLOL SUCCINATE (ER) 25 MG TAB.ER.24H PO SCH (08:10)
[2023-07-30] MEDS: lisinopriL 5 MG TAB PO SCH ×2 (08:10→20:32)
[2023-07-30] MEDS: CLOPIDOGREL 75 MG TAB PO SCH (08:10)
[2023-07-30] MEDS: ATORVASTATIN 40 MG TAB PO SCH (08:10)
[2023-07-30] MEDS: amLODIPine 10 MG TAB PO SCH (08:10)
[2023-07-30] MEDS: ISOSORBIDE MONONITRATE ER 30 MG TAB.ER.24H PO SCH (08:10)
[2023-07-30] MEDS: ASPIRIN 81 MG PO SCH (08:10)
[2023-07-30] MEDS: FUROSEMIDE 20 MG TAB PO SCH (08:10)
[2023-07-30] MEDS: PANTOPRAZOLE 40 MG/10 ML VIAL IVP SCH (08:24)
[2023-07-30 11:19] LABS: Glucose,Whole Blood 190 mg/dL (70-110)
--- NOTE | 2023-07-30 11:37 | P.PN ---
Subjective Progress Note Date: 07/30/23 Principal diagnosis: Bilateral upper extremity weakness Patient was evaluated today at bedside, he is resting in his hospital chair. Patient's symptoms seem about the same as compared to yesterday. Cervical MRI scheduled for today Objective - Vital Signs Vital signs: Vital Signs Temp 97.7 F 07/30/23 07:28 Pulse 67 07/30/23 07:28 Resp 19 07/30/23 07:28 BP 128/69 07/30/23 07:28 Pulse Ox 94 L 07/30/23 07:28 FiO2 40 07/22/23 19:53 Intake & Output 07/29/23 07/30/23 07/30/23 18:59 06:59 18:59 Weight 99 kg Other: Voiding Method Urinal # Voids 2 3 # Bowel Movements 1 - Exam Gen: AOx3, NAD VSS stable at this time Integument: No open lesions, sores, areas of erythema are visualized throughout the cervical, thoracic or lumbar spine Palpation: No tenderness with palpation noted throughout the cervical, thoracic or lumbar spine] ROM: Range of motion is significantly limited with the bilateral upper extremities with shoulder elevation shoulder abduction, elbow extension, elbow flexion, wrist extension, wrist flexion, rail filler are intact Full range of motion in bilateral lower extremities, no focal deficits ap preciated Sensory Exam: Senory exam to light touch is intact C5-T1 Senosry exam to light touch is intact L2-S1 Motor: Strength was difficult to assess with regards to shoulder elevation and abducti on of the left shoulder 3/5 strength appreciated with shoulder elevation and shoulder abduction of the right shoulder 4/5 strength appreciated in the bilateral upper extremities with elbow extension, elbow flexion, wrist extension, wrist flexion, rail filler 4/5 strength appreciated in the bilateral lower extremities with hip flexion, knee extension, knee flexion, plantar flexion, dorsiflexion, EHL, FHL Reflexes: Negative Elder's bilaterally Negative clonus bilaterally Negative Babinski bilaterally Special Test: Negative straight leg raise bilaterally - Labs CBC & Chem 7: 07/29/23 11:53 07/29/23 11:53 Labs: Abnormal Lab Results - Last 24 Hours (Table) 07/29/23 07/29/23 07/29/23 Range/Units 11:53 11:53 16:41 MCHC 31.7 L (32.0-37.0) g/dL Lymphocytes # 0.88 L (0.90-5.00) X 10*3/uL Sodium 136 L (137-145) mmol/L BUN 26 H (9-20) mg/dL Glucose 179 H (74-99) mg/dL POC Glucose (mg/dL) 210 H (70-110) mg/dL Total Bilirubin 1.7 H (0.2-1.3) mg/dL 07/29/23 07/30/23 07/30/23 Range/Units 19:31 05:13 11:18 MCHC (32.0-37.0) g/dL Lymphocytes # (0.90-5.00) X 10*3/uL Sodium (137-145) mmol/L BUN (9-20) mg/dL Glucose (74-99) mg/dL POC Glucose (mg/dL) 164 H 149 H 190 H (70-110) mg/dL Total Bilirubin (0.2-1.3) mg/dL Assessment and Plan Assessment: Bilateral upper extremity weakness, left worse than right Multilevel cervical spondylosis along with varying degrees of neural foraminal and central canal stenosis 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 Would recommend use of Tylenol if needed DVT prophylaxis, primary medical recommendations Weight-bear as tolerated with walker and assistance PT/OT Other medical specialty recommendations appreciated Further recommendations to follow, we will continue to follow patient during hospital stay Time with Patient: Less than 30
--- NOTE | 2023-07-30 15:50 | P.PN ---
Subjective Progress Note Date: 07/30/23 I am seeing this patient in new consultation today 07/21/2023 in the intensive care unit after he was found to be short of breath and hypoxic while in the emergency room. He did test positive for COVID-19. He was also noted to have mild ST elevation in anterior leads on arrival. Patient was started on a heparin infusion, and admitted to the intensive care unit. Patient is an 82-year-old white male with past medical history significant for multivessel coronary artery disease, hypertension, hyperlipidemia, diabetes mellitus. While at home yesterday, he had an assisted fall to the ground. He states that he's been very weak over the last couple days. He states that his legs just "gave out". Denies losing consciousness. Since , he has progressively become more short of breath. Denies history of pulmonary disease. Admits associated cough with white sputum, chest congestion. Denies fevers, chills, wheezing, chest pain. States that his granddaughter did have a cold recently. He did test positive for COVID-19 on arrival. He is not vaccinated for COVID. He is currently lying in bed, on a 15 L nonrebreather, in no acute distress. He is hypoxic with an SpO2 of 86%. Chest CTA was negative for pulmonary embolism. It did show low lung volumes with pulmonary vascular congestion and cardiomegaly. There was also a right hemidiaphragm and right lower lobe infiltrate thought to represent atelectasis, however, superimposed pneumonia is not excluded. NT proBNP was 1800. Troponins elevated at 0.082 and 1.8 so far. EKG changes initially showed mild ST elevation in anterior leads, which improved with subsequent EKGs. There was also a right bundle-branch. Patient denies ever having any chest pain. He was started on a heparin infusion per protocol in the emergency room. Cardiology has evaluated the patient, and has elected medical management at this time. Most recent echocardiogram was from over 1 year ago and showed a preserved ejection fraction of 50-55% and moderate mitral regurgitation. CBC on arrival showed a WBC count of 6.8, hemoglobin 11.9, hematocrit 35.8, platelets 125. Baseline APTT is 25. CMP shows sodium 137, potassium 3.6, chloride 103, serum bicarbonate 23, BUN 19, creatinine 1.29, glucose 167. LFTs not elevated. Patient has been afebrile. Empirically started on a combination of azithromycin and Rocephin. Procalcitonin level ordered. CT of the brain and C-spine did not show any acute intracranial process or evidence of C-spine fracture. Patient will be monitored in the intensive care unit. The patient is seen today 07/22/2023 in follow-up in the intensive care unit. He is currently sitting up in bed. Awake and alert in no acute distress. He is currently on AirVo at 50 L and 50% FiO2 maintaining O2 saturations in the 90s. Echocardiogram revealed mildly impaired left ventricular systolic function with ejection fraction 45-50%. Today's chest x-ray reveals chronic changes but no acute pulmonary process. White count 4.2. Hemoglobin 11.6. Platelets 161. Sodium 138. Potassium 3.8. Bicarb 26. BUN 21. Creatinine 1.21. Hemoglobin A1c 9.1. Pro-calcitonin 0.13. TSH 0.939. He is currently in a -300 ML balance. Continued on Decadron. Heparin for DVT prophylaxis. The patient is seen today 07/23/2023 and follow-up in the intensive care unit. He is currently sitting up in a chair. He is awake and alert in no acute distress. He is on 12 L high flow nasal cannula. He denies any worsening shortness of breath, cough or congestion. Blood cultures reveal no growth. White count 4.3. Hemoglobin 12.4. Platelets 172. Sodium 139. Potassium 3.7. Bicarb 24. BUN 25. Creatinine 1.27. Glucose 160. He is continued on Decadron. Heparin for DVT prophylaxis. The patient is seen today 07/24/2023 in follow-up in the intensive care unit. He is awake and alert in no acute distress. Sitting up in a chair at the bedside. He is down to 10 L high flow nasal cannula. No IV fluids. Breathing a bit easier today compared to yesterday. White count 5.2. Hemoglobin 12.2. Platelets 194. Sodium 139. Potassium 4.0. Bicarb 28. BUN 29. Creatinine 1.20. Glucose 136. He is continued on Decadron. Heparin for DVT prophylaxis per The patient is seen today 07/25/2023 in follow-up in the intensive care unit. He is a regular medical floor overflow. He is sitting up in a chair at the bedside. Awake and alert in no acute distress. He is maintaining good O2 saturations on 2 L/m per nasal cannula. Continues to improve daily. He is continued on Decadron, heparin for DVT prophylaxis. Glucose 169. Progress note dated 07/26/2023. The patient is seen today in room 454. Yesterday, he was still in the intensive care unit. The patient is currently on 2 L of oxygen. He is not receiving any IV fluids. Discontinue the Decadron today. He's feeling much improved, and is hoping be discharged in the near future. No new labs today other than a glucose of 135. Blood cultures are currently negative. Progress note dated 07/27/2023. The patient is seen today in room 454. He continues on oxygen at 2 L. He is at receiving any IV fluids. The patient is feeling much improved. Labs today only included glucose of 100. Blood cultures are currently negative. Decadron was discontinued yesterday. on today's evaluation of 07/28/2023, seeing the patient for a follow-up. 82-year-old male patient with multivessel coronary artery disease, hypertension hyperlipidemia and diabetes mellitus. The patient presented to us withacute hypoxic respiratory failure secondary to diastolic heart failure and a Covid [address] angiogram of the chest that was on time of admission showed no evidence of any pulmonary embolism. The patient was treated with steroids and the patient completed his course of Decadron. He is doing well. He remains on 2 L of Oxymizer nasal cannula. He is still weak. He is unable to emanate independently. He has a walker the bedside. No nausea. No vomiting. No d iarrhea. No abdominal pain. He would benefit from rehabilitation. He may also need oxygen at a time of discharge and appropriate remained.no new labs from today. The patient is on aspirin and Plavix. The patient is on Levemir insulin 10 units and a sliding scale coverage. The patient remains on metoprolol XL 25 mg by mouth daily. 07/29/2023, the patient is essentially stable. No new complaints. He remains on oxygen 2 L per minute nasal cannula. He has completed his course of steroids. No chest pain. No shortness of breath. No new labs from today. He remains on 2 L of oxygen by nasal cannula with a pulse ox of 92%. Rest of the medications remain unchanged. He remains on aspirin and Plavix. Remains on Lipitor. Remains on Levemir insulin 10 units along with a sliding scale c overage. Blood sugar control is adequate for now in the morning blood sugars at 131. On 07/30/2023, no new complaints and the patient's oral condition is stable. Awaiting transfer to [facility]. Remains on oxygen at 2 L per minute nasal cannula. Rest of the medication remains unchanged. No major respiratory difficulties for now. No new labs are available from today. Using the incentive spirometer. Objective - Vital Signs Vital signs: Vital Signs Temp 97.7 F 07/30/23 07:28 Pulse 67 07/30/23 07:28 Resp 19 07/30/23 07:28 BP 128/69 07/30/23 07:28 Pulse Ox 94 L 07/30/23 07:28 FiO2 40 07/22/23 19:53 Intake & Output 07/29/23 07/30/23 07/30/23 18:59 06:59 18:59 Weight 99 kg Other: Voiding Method Urinal # Voids 2 3 # Bowel Movements 1 - Exam No acute distress, oriented 3. Currently on 2 L of oxygen. Saturations are 94%. HEENT examination is grossly unremarkable. Mucous membranes are moist. No oral lesions. Neck supple. Full range of motion. No adenopathy thyromegaly or neck vein distention. Cardiovascular examination reveals regular rhythm rate. S1-S2 normal. No S3 or S4. No discernible murmur noted. Lungs reveal scattered rhonchi. No wheezes or crackles. Breath sounds are equal bilaterally. The patient is currently on 2 L of oxygen. Abdomen soft bowel sounds are heard. No masses or tenderness. Extremities are intact. No cyanosis clubbing or edema. Skin is without rash or lesion. Neurologic examination is brief but nonfocal. - Labs CBC & Chem 7: 07/29/23 11:53 07/29/23 11:53 Labs: Abnormal Lab Results - Last 24 Hours (Table) 07/29/23 07/29/23 07/29/23 Range/Units 11:21 11:53 11:53 MCHC 31.7 L (32.0-37.0) g/dL Lymphocytes # 0.88 L (0.90-5.00) X 10*3/uL Sodium 136 L (137-145) mmol/L BUN 26 H (9-20) mg/dL Glucose 179 H (74-99) mg/dL POC Glucose (mg/dL) 183 H (70-110) mg/dL Total Bilirubin 1.7 H (0.2-1.3) mg/dL 07/29/23 07/29/23 07/30/23 Range/Units 16:41 19:31 05:13 MCHC (32.0-37.0) g/dL Lymphocytes # (0.90-5.00) X 10*3/uL Sodium (137-145) mmol/L BUN (9-20) mg/dL Glucose (74-99) mg/dL POC Glucose (mg/dL) 210 H 164 H 149 H (70-110) mg/dL Total Bilirubin (0.2-1.3) mg/dL 07/30/23 Range/Units 11:18 MCHC (32.0-37.0) g/dL Lymphocytes # (0.90-5.00) X 10*3/uL Sodium (137-145) mmol/L BUN (9-20) mg/dL Glucose (74-99) mg/dL POC Glucose (mg/dL) 190 H (70-110) mg/dL Total Bilirubin (0.2-1.3) mg/dL Assessment and Plan Plan: Acute hypoxemic respiratory failure, likely multifactorial, related to suspected exacerbation of diastolic congestive heart failure and acute COVID-19 infection. Chest CTA was negative for pulmonary embolism. the patient remains on 2 L of oxygen by nasal cannula. Acute COVID-19 infection. completed decadron Acute non- ST elevation [place].currently family chest pain Multivessel coronary artery disease, recent left heart catheterization 05/02/2022, showed 40% stenosis of the left main, 80% stenosis of the mid LAD, 40% stenosis of left circumflex, 90% stenosis of the RCA, and 100% stenosis of the PDA. Diabetes mellitus2, insulin-dependent. Hyperlipidemia. Benign essential hypertension. Fall. Obesity with a BMI of 32.5 kg/m. Remote ex-smoker. Generalized weakness more so involving the upper extremities, and the patient is known to have multilevel cervical spondylosis with various degrees of neural foraminal and central canal stenosis. Plan: Based on his underlying weakness, the patient was delivered by orthopedic surgery and the patient is going to have a cervical MRI or orthopedic surgery recommendations. Patient is stable on 2 L of oxygen by nasal cannula Provide incentive spirometer increase mobility as tolerated. May need rehabilitation at time of discharge maintain reduction therapy at time of discharge and the patient currently on 2 L of oxygen by nasal cannula. Continue rest of the medications Full CODE STATUS Continue to follow
[2023-07-30 17:09] LABS: Glucose,Whole Blood 291 mg/dL (70-110)
--- NOTE | 2023-07-30 17:43 | P.PN ---
Subjective Progress Note Date: 07/30/23 07/30/2023: Patient was seen for a follow-up. Patient states that he still feels tiredness in the eyes, itching eyes and sometimes barnard. Denies any loss of vision, or double vision. Denies any dysphagia. He is slightly short of breath and is using oxygen by nasal cannula. No new concerns. 07/28/2023: Patient initially seen by Dr. Arnold Peralta. Please refer to his note for details. Patient is a 82-year-old male with bilateral arm weakness (left > right) and Dr. Peralta felt seems thoracic. Pending MRI Brain and thoracic spine. Orthopedic spine was consulted, and they recommended an MRI of the cervical spine as well. Patient states his arms are still weak, left more than right. Denies any headache, complains of fuzzy vision, mainly because of eyes being tired. His legs are okay. He is able to walk with assistance going to the bathroom. Some other workup during his hospital visit consisted of: CT of head on 07/20/2023: It is reported as no acute intracranial processes. Nonspecific white matter changes, likely secondary due to chronic small vessel ischemic disease. I pressure review the CT head and I agree there is no acute or subacute ischemia. There is no bleed that was able to appreciate. CT cervical spine was reported as no evidence of cervical spine fracture. Mild to moderate multilevel degenerative disc disease. Lipid panel is triglyceride of 106, cholesterol 133, LDL 69, HDL 52 Hemoglobin A1c is 9.1. TSH is 0.939 Coronavirus PCR is detected Limited 2-D echo was reported as mildly impaired left ventricular systolic function with an anterolateral apical hypokinesis. [id number] mitral with mild tricuspid regurgitation Repeat CT head: Is reported acute intracranial process. Nonspecific white matter changes, likely secondary to chronic vessel ischemic disease. Repeat CT cervical: No evidence of cervical spine fracture. Moderate to severe multilevel degenerative disc disease with multilevel neural foraminal stenosis of varying degree. Carotid duplex is reported as less than 50% stenosis of bilateral carotid bifurcation. Nonvisualization of the left vertebral artery. Objective - Vital Signs Vital signs: Vital Signs Temp 97.6 F 07/30/23 14:04 Pulse 94 07/30/23 14:04 Resp 18 07/30/23 14:04 BP 108/54 07/30/23 14:04 Pulse Ox 94 L 07/30/23 14:04 FiO2 40 07/22/23 19:53 Intake & Output 07/29/23 07/30/23 07/30/23 18:59 06:59 18:59 Weight 99 kg Other: Voiding Method Urinal # Voids 2 3 1 # Bowel Movements 1 1 - Exam Patient is an elderly male, very pleasant, appears to be in mild distress. He is slightly short of breath, uses oxygen by nasal cannula. Patient is alert and awake oriented to time place and person. He knows it is 07/30/2023 and that he is in [facility] in [place]. His speech and language functions are normal. Cranial nerves are significant for bilateral ptosis, left more than right. Extraocular muscles are intact. Face is symmetric and tongue protrudes the midline. Patient's facial strength of eye closure, puffing up of cheeks, lip closure and tongue movement [id number] appear very strong. No weakness. He is hard of hearing. On muscle strength testing, (right/left) deltoid 3+4-/3+4-, biceps 4/4+, triceps 4+/4, dialysis rn 5/5, hip flexion 5/5, ankle dorsiflexion 5/5. Sensations are equal. Reflexes are trace at the biceps and brachioradialis bilaterally. No ataxia for myfhjg-[id number]-kflq testing. Patient has moderate peripheral edema. - Labs CBC & Chem 7: 07/29/23 11:53 07/29/23 11:53 Labs: Abnormal Lab Results - Last 24 Hours (Table) 07/29/23 07/30/23 07/30/23 Range/Units 19:31 05:13 11:18 POC Glucose (mg/dL) 164 H 149 H 190 H (70-110) mg/dL 07/30/23 Range/Units 17:07 POC Glucose (mg/dL) 291 H (70-110) mg/dL Assessment and Plan Assessment: This is an 82-year-old gentleman who presented to the hospital because of s hortness of breath and was found to have COVID-19 infection. He also has weakness of the left upper extremity more than the right for the past [address] of the head and cervical spine is negative for any acute or subacute changes Bilateral upper extremity weakness left more than right and I felt the patient had left facial droop: on CT of cervical spine revealed the patient has hyperin tense over the T1 T2 T3 on the anterior region over the CT. Also rule out stroke. 2 CT heads are negative Acute hypoxic respiratory failure and patient has acute COVID-19 infection. Acute non-ST elevation NE History of coronary artery disease status post stent Diabetes mellitus on insulin Hypertension Hyperlipidemia Remote ex-smoker Plan: MRI Brain w/o revealed no mass lesion. No acute or subacute ischemic stroke. Some small vessel disease. Trace mastoid air cell effusion. I personally reviewed MRI agree with the findings. Continue aspirin 81 mg daily, which is his home medication. MRI of the cervical spine revealed no evidence for disc herniation or sig nificant spinal canal stenosis. Moderate to severe disc degeneration with associated osteoarthritic changes. Varying degrees of foraminal stenosis throughout the cervical spine. I personally reviewed MRI agree with the findings. There is some spondylosis, without any significant spinal stenosis. Orthopedic spine on board. Patient is on Lipitor 40 mg daily TSH 0.939, normal Check B12, folate, CK, acetylcholine receptor antibodies. Recommend EMG and nerve conduction of bilateral upper limbs to evaluate for polyneuropathy, rule out motor neuron disease or other neuropathic process. Cardiac monitoring PT and OT are consulted Cardiology and pulmonary team are on board We'll defer the rest of the medical management to primary team For DVT prophylaxis the patient is on subcu heparin 5000 units every 8 hours
--- NOTE | 2023-07-30 19:03 | MR ---
EXAMINATION TYPE: MR cervical spine wo/w con DATE OF EXAM: 07/30/2023 3:52 PM CLINICAL INDICATION:Male, 82 years old with history of neck pain; COMPARISON: . None TECHNIQUE: Multi planar, multi sequence imaging was performed utilizing: T1-weighted, T2-weighted, an d turbo inversion recovery imaging of the cervical spine. IV Contrast: 10 cc Gadavist (none if empty) FINDINGS: Alignment: The cervical vertebral bodies have preserved heights. Alignment is within normal limits gi winsome patient positioning. Bones: Scattered Modic endplate changes with osteophytes and disc space narrowing. Multilevel degener ative disc disease is noted and most pronounced at the C3 -C6 vertebral levels. No abnormal postcontr ast enhancement. Cord: The spinal cord is unremarkable with regards to their signal intensity and morphology. No abnor mal postcontrast enhancement. Discs: Multilevel disc desiccation is present. C2-C3: No significant disc pathology. The spinal canal is patent. No neural foraminal stenosis. C3-C4: A disc osteophyte complex is present with mild spinal canal stenosis. Bilateral facet and unc overtebral joint arthropathy are present with moderate bilateral neural foraminal stenosis. C4-C5: A disc osteophyte complex is present which minimally narrows the ventral subarachnoid space. Bilateral facet and uncovertebral joint arthropathy are present with moderate bilateral neural hi inal stenosis. C5-C6: A disc osteophyte complex is present which minimally narrows the ventral subarachnoid space. Bilateral facet and uncovertebral joint arthropathy are present with moderate to severe right and mo derate left neural foraminal stenosis. C6-C7: A disc osteophyte complex is present which minimally narrows the ventral subarachnoid space. Bilateral facet and uncovertebral joint arthropathy are present with moderate bilateral neural hi inal stenosis. C7-T1: No significant disc pathology. The spinal canal is patent. No neural foraminal stenosis. Other: None. IMPRESSION: 1. No evidence for disc herniation or significant spinal canal stenosis. 2. Moderate to severe disc degeneration with associated osteoarthritic changes. Varying degrees of foraminal stenosis throughout the cervical spine.
[2023-07-30 20:21] LABS: Glucose,Whole Blood 151 mg/dL (70-110)
[2023-07-30] MEDS: TAMSULOSIN 0.4 MG CAP.ER.24H PO SCH (20:31)
[2023-07-30] MEDS: ARTIFICIAL TEARS-HYPROMELLOSE DROPS 15 ML BTL BOTH EYES PRN (20:33)
[2023-07-30] MEDS ORDERED: INSULIN DETEMIR (LEVEMIR) 100 UNIT/ML SYR SQ SCH (21:00)
--- NOTE | 2023-07-30 22:40 | PN ---
PROGRESS NOTE CHIEF COMPLAINT: STEMI and lacunar TIA. HISTORY OF PRESENT ILLNESS: This gentleman is doing fairly well, but neurologic symptoms are waxing and waning now he states that the arm weakness comes and goes. PHYSICAL EXAMINATION: GENERAL: He is awake and alert. VITAL SIGNS: Normal. HEENT: Left eye is drooping somewhat again today. CHEST: Clear. CARDIAC: Normal. He is having some upper extremity weakness, again particularly in the triceps area. IMPRESSION: 1. ST-elevation myocardial infarction. 2. Probable basilar or pontine transient ischemic attack. PLAN: Continue to follow from the neurologic point of view. Studies so far have not demonstrated any significant pathology in central nervous system. MMODL / IJN: [id number] /
[2023-07-31 06:09] LABS: Glucose,Whole Blood 99 mg/dL (70-110)
[2023-07-31] MEDS: INSULIN ASPART (NovoLOG) 100 UNIT/ML VIAL SQ SCH ×3 (06:23→17:16)
--- NOTE | 2023-07-31 07:31 | PN ---
PROGRESS NOTE CHIEF COMPLAINT: Acute [place] and TIA. HISTORY OF PRESENT ILLNESS: This gentleman is just about the same. His neurologic symptom seemed to be waxing and waning. MRI of the brain was negative and then the MRI of the C-spine was ordered today. It would be unlikely that something in the C-spine would be affecting his left facial weakness. PHYSICAL EXAMINATION: GENERAL: He is awake, alert, oriented. CHEST: Clear. CARDIAC: Normal. IMPRESSION: ST elevation myocardial infarction with lacunar transient ischemic attacks. PLAN: Await results of C-spine MRI. MMODL / IJN: [id number] /
[2023-07-31 08:44] VITALS: RESP 19
[2023-07-31] MEDS: PANTOPRAZOLE 40 MG/10 ML VIAL IVP SCH (09:08)
[2023-07-31] MEDS: lisinopriL 5 MG TAB PO SCH (09:08)
[2023-07-31] MEDS: FUROSEMIDE 20 MG TAB PO SCH (09:08)
[2023-07-31] MEDS: ISOSORBIDE MONONITRATE ER 30 MG TAB.ER.24H PO SCH (09:08)
[2023-07-31] MEDS: ASPIRIN 81 MG PO SCH (09:08)
[2023-07-31] MEDS: ATORVASTATIN 40 MG TAB PO SCH (09:08)
[2023-07-31] MEDS: CLOPIDOGREL 75 MG TAB PO SCH (09:08)
[2023-07-31] MEDS: amLODIPine 10 MG TAB PO SCH (09:08)
[2023-07-31] MEDS: METOPROLOL SUCCINATE (ER) 25 MG TAB.ER.24H PO SCH (09:08)
[2023-07-31] MEDS: HEPARIN SODIUM,PORCINE 5,000 UNIT/ML 1 ML VIAL SQ SCH ×2 (09:08→17:16)
--- NOTE | 2023-07-31 09:28 | P.PN ---
Subjective Progress Note Date: 07/31/23 Principal diagnosis: Bilateral upper extremity weakness Patient seen and examined this morning. Patient was sitting up in the chair for breakfast. Patient continues to have complaint of bilateral upper extremity radiculopathy and weakness. Patient does have decreased dexterity of bilateral hands. Patient reports that he uses his left upper extremity to assist his right when attempting to eat. Discussed with patient the results of his cervical MRI which demonstrates moderate to severe disc degeneration with varying degrees of foraminal stenosis throughout the cervical spine. Patient is scheduled for a MRI of the thoracic spine today at 2:15p. Patient does report that he has possibly being discharged tomorrow would when medically cleared by Dr. Hale. Patient does report that his pain is managed on current regimen. He states he has been amatory within room with walker 1 assist. No acute concerns at this time. Objective - Vital Signs Vital signs: Vital Signs Temp 97.7 F 07/31/23 00:58 Pulse 71 07/31/23 00:58 Resp 18 07/31/23 00:58 BP 113/55 07/31/23 00:58 Pulse Ox 92 L 07/31/23 00:58 FiO2 40 07/22/23 19:53 Intake & Output 07/30/23 07/31/23 07/31/23 18:59 06:59 18:59 Other: # Voids 1 4 # Bowel Movements 1 - Exam Physical Examination General: The patient is awake and alert, in no acute distress Skin: Skin is warm and dry with no obvious rashes or lesions. Eye: Pupils are equal, round and reactive to light, extra-ocular movements are intact; there is normal conjunctiva bilaterally. Neck: The neck is supple, there is no tenderness and ROM is limited due to pain and stiffness. Cardiovascular: There is a regular rate and rhythm. No murmur, rub or gallop is appreciated. Respiratory: Lungs are clear to auscultation, respirations are non-labored, breath sounds are equal. Gastrointestinal: Soft, non-distended, non-tender abdomen. Back: There is no tenderness to palpation in the midline, paralumbar, parathoracic or buttocks region. There is no obvious deformity . Musculoskeletal: ROM limited secondary to pain and stiffness. 3/5 strength appreciated with shoulder elevation and shoulder abduction of the right shoulder, 4/5 strength appreciated in the bilateral upper extremities with elbow extension, elbow flexion, wrist extension, wrist flexion, tare weigher 4/5 strength appreciated in the bilateral lower extremities with hip flexion, knee extension, knee flexion, plantar flexion, dorsiflexion, EHL, FHL Neurological: CN 2-12 intact. There are no obvious motor or sensory deficits. Movement and coordination equal and intact. Sensory exam to light touch intact C5-T1 and intact from L2-S1. Reflexes 2/4 in bilateral upper and lower extremities. Negative Hoffmans, babinski, and clonus signs. Psychiatric: Cooperative, appropriate mood & affect, normal judgment. 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 Pain control, patient denies any acute pain involving the upper extremities or neck at this time. Would recommend use of Tylenol if needed DVT prophylaxis, primary medical recommendations Weight-bear as tolerated with walker and assistance PT/OT Other medical specialty recommendations appreciated Further recommendations to follow, we will continue to follow patient during hospital stay I reviewed and discussed this case with my attending Dr. Mcgee, whom has r eviewed this chart and films and is in agreement with assessment and plan of care as outlined above. I have personally seen and examined the patient, performed the documentation and the assessment and plan as written. Number of minutes spent on the visit: 15m.
[2023-07-31 11:21] LABS: Glucose,Whole Blood 172 mg/dL (70-110)
--- NOTE | 2023-07-31 13:37 | DS ---
DISCHARGE SUMMARY CHIEF COMPLAINT: Chest pain. HISTORY OF PRESENT ILLNESS AND PHYSICAL EXAMINATION: Details of this man's History and Physical can be found in the initial workup. LABORATORY STUDIES: While he is in the hospital, he had laboratory studies. Details of which can be found in the laboratory section of his chart. COURSE IN THE HOSPITAL: After admission, he was placed on bedrest, started intravenous fluids and taken to ICU. He underwent cardiac cath and stenting managed by Cardiology. Postoperatively, he did quite well. He was eventually moved out of ICU to the step-down unit. He then began having difficulty with drooping of the left eye and weakness in the upper extremities. His symptoms would wax and wane and change slightly from time to time. He was seen by Neurology. Vascular studies revealed 1 occluded vertebral artery. MRI of the brain was normal. He was to have an MRI of the C-spine. It was thought that these probably were due to lacunar, basal ganglia, or TIAs. Arrangements were made for him to go to rehab on the and he will be sent there and can start vigorous rehab program with hopes of being discharged home. FINAL DIAGNOSES: 1. Acute ST-elevation myocardial infarction. 2. Congestive heart failure with preserved ejection fraction. 3. Fall. 4. Transient ischemic attacks. OPERATIONS: Cardiac cath. CONSULTATIONS: Cardiology and Neurology. He is improved. NEREIDA / ELLIOTT: [id number] /
[2023-07-31 14:35] VITALS: BP 102/51; PULSE 77; TEMP 98.1
--- NOTE | 2023-07-31 14:54 | P.PN ---
Subjective Progress Note Date: 07/31/23 I am seeing this patient in new consultation today 07/21/2023 in the intensive care unit after he was found to be short of breath and hypoxic while in the emergency room. He did test positive for COVID-19. He was also noted to have mild ST elevation in anterior leads on arrival. Patient was started on a heparin infusion, and admitted to the intensive care unit. Patient is an 82-year-old white male with past medical history significant for multivessel coronary artery disease, hypertension, hyperlipidemia, diabetes mellitus. While at home yesterday, he had an assisted fall to the ground. He states that he's been very weak over the last couple days. He states that his legs just "gave out". Denies losing consciousness. Since , he has progressively become more short of breath. Denies history of pulmonary disease. Admits associated cough with white sputum, chest congestion. Denies fevers, chills, wheezing, chest pain. States that his granddaughter did have a cold recently. He did test positive for COVID-19 on arrival. He is not vaccinated for COVID. He is currently lying in bed, on a 15 L nonrebreather, in no acute distress. He is hypoxic with an SpO2 of 86%. Chest CTA was negative for pulmonary embolism. It did show low lung volumes with pulmonary vascular congestion and cardiomegaly. There was also a right hemidiaphragm and right lower lobe infiltrate thought to represent atelectasis, however, superimposed pneumonia is not excluded. NT proBNP was 1800. Troponins elevated at 0.082 and 1.8 so far. EKG changes initially showed mild ST elevation in anterior leads, which improved with subsequent EKGs. There was also a right bundle-branch. Patient denies ever having any chest pain. He was started on a heparin infusion per protocol in the emergency room. Cardiology has evaluated the patient, and has elected medical management at this time. Most recent echocardiogram was from over 1 year ago and showed a preserved ejection fraction of 50-55% and moderate mitral regurgitation. CBC on arrival showed a WBC count of 6.8, hemoglobin 11.9, hematocrit 35.8, platelets 125. Baseline APTT is 25. CMP shows sodium 137, potassium 3.6, chloride 103, serum bicarbonate 23, BUN 19, creatinine 1.29, glucose 167. LFTs not elevated. Patient has been afebrile. Empirically started on a combination of azithromycin and Rocephin. Procalcitonin level ordered. CT of the brain and C-spine did not show any acute intracranial process or evidence of C-spine fracture. Patient will be monitored in the intensive care unit. The patient is seen today 07/22/2023 in follow-up in the intensive care unit. He is currently sitting up in bed. Awake and alert in no acute distress. He is currently on AirVo at 50 L and 50% FiO2 maintaining O2 saturations in the 90s. Echocardiogram revealed mildly impaired left ventricular systolic function with ejection fraction 45-50%. Today's chest x-ray reveals chronic changes but no acute pulmonary process. White count 4.2. Hemoglobin 11.6. Platelets 161. Sodium 138. Potassium 3.8. Bicarb 26. BUN 21. Creatinine 1.21. Hemoglobin A1c 9.1. Pro-calcitonin 0.13. TSH 0.939. He is currently in a -300 ML balance. Continued on Decadron. Heparin for DVT prophylaxis. The patient is seen today 07/23/2023 and follow-up in the intensive care unit. He is currently sitting up in a chair. He is awake and alert in no acute distress. He is on 12 L high flow nasal cannula. He denies any worsening shortness of breath, cough or congestion. Blood cultures reveal no growth. White count 4.3. Hemoglobin 12.4. Platelets 172. Sodium 139. Potassium 3.7. Bicarb 24. BUN 25. Creatinine 1.27. Glucose 160. He is continued on Decadron. Heparin for DVT prophylaxis. The patient is seen today 07/24/2023 in follow-up in the intensive care unit. He is awake and alert in no acute distress. Sitting up in a chair at the bedside. He is down to 10 L high flow nasal cannula. No IV fluids. Breathing a bit easier today compared to yesterday. White count 5.2. Hemoglobin 12.2. Platelets 194. Sodium 139. Potassium 4.0. Bicarb 28. BUN 29. Creatinine 1.20. Glucose 136. He is continued on Decadron. Heparin for DVT prophylaxis per The patient is seen today 07/25/2023 in follow-up in the intensive care unit. He is a regular medical floor overflow. He is sitting up in a chair at the bedside. Awake and alert in no acute distress. He is maintaining good O2 saturations on 2 L/m per nasal cannula. Continues to improve daily. He is continued on Decadron, heparin for DVT prophylaxis. Glucose 169. Progress note dated 07/26/2023. The patient is seen today in room 454. Yesterday, he was still in the intensive care unit. The patient is currently on 2 L of oxygen. He is not receiving any IV fluids. Discontinue the Decadron today. He's feeling much improved, and is hoping be discharged in the near future. No new labs today other than a glucose of 135. Blood cultures are currently negative. Progress note dated 07/27/2023. The patient is seen today in room 454. He continues on oxygen at 2 L. He is at receiving any IV fluids. The patient is feeling much improved. Labs today only included glucose of 100. Blood cultures are currently negative. Decadron was discontinued yesterday. on today's evaluation of 07/28/2023, seeing the patient for a follow-up. 82-year-old male patient with multivessel coronary artery disease, hypertension hyperlipidemia and diabetes mellitus. The patient presented to us withacute hypoxic respiratory failure secondary to diastolic heart failure and a Covid [address] angiogram of the chest that was on time of admission showed no evidence of any pulmonary embolism. The patient was treated with steroids and the patient completed his course of Decadron. He is doing well. He remains on 2 L of Oxymizer nasal cannula. He is still weak. He is unable to emanate independently. He has a walker the bedside. No nausea. No vomiting. No d iarrhea. No abdominal pain. He would benefit from rehabilitation. He may also need oxygen at a time of discharge and appropriate remained.no new labs from today. The patient is on aspirin and Plavix. The patient is on Levemir insulin 10 units and a sliding scale coverage. The patient remains on metoprolol XL 25 mg by mouth daily. 07/29/2023, the patient is essentially stable. No new complaints. He remains on oxygen 2 L per minute nasal cannula. He has completed his course of steroids. No chest pain. No shortness of breath. No new labs from today. He remains on 2 L of oxygen by nasal cannula with a pulse ox of 92%. Rest of the medications remain unchanged. He remains on aspirin and Plavix. Remains on Lipitor. Remains on Levemir insulin 10 units along with a sliding scale c overage. Blood sugar control is adequate for now in the morning blood sugars at 131. On 07/30/2023, no new complaints and the patient's oral condition is stable. Awaiting transfer to [facility]. Remains on oxygen at 2 L per minute nasal cannula. Rest of the medication remains unchanged. No major respiratory difficulties for now. No new labs are available from today. Using the incentive spirometer. 07/31/2023, seeing the patient for a follow-up. Note complaints. MRI of the cervical spine was done and there is no evidence of any disc herniation or significant spinal canal stenosis. There is moderate degree of degenerative disc disease and osteoarthritic changes. The patient is further going to have an MRI of the thoracic spine. His overall respiratory status is stable. He has been weaned down to room air oxygen. No major respiratory difficulties. Objective - Vital Signs Vital signs: Vital Signs Temp 97.9 F 07/31/23 07:35 Pulse 95 07/31/23 10:19 Resp 19 07/31/23 07:35 BP 153/77 07/31/23 07:35 Pulse Ox 95 07/31/23 10:19 FiO2 40 07/22/23 19:53 Intake & Output 07/30/23 07/31/23 07/31/23 18:59 06:59 18:59 Other: # Voids 1 4 # Bowel Movements 1 - Exam No acute distress, oriented 3. Currently on 2 L of oxygen. Saturations are 94%. HEENT examination is grossly unremarkable. Mucous membranes are moist. No oral lesions. Neck supple. Full range of motion. No adenopathy thyromegaly or neck vein dis tention. Cardiovascular examination reveals regular rhythm rate. S1-S2 normal. No S3 or S4. No discernible murmur noted. Lungs reveal scattered rhonchi. No wheezes or crackles. Breath sounds are equal bilaterally. The patient is currently on 2 L of oxygen. Abdomen soft bowel sounds are heard. No masses or tenderness. Extremities are intact. No cyanosis clubbing or edema. Skin is without rash or lesion. Neurologic examination is brief but nonfocal. - Labs CBC & Chem 7: 07/29/23 11:53 07/29/23 11:53 Labs: Abnormal Lab Results - Last 24 Hours (Table) 07/30/23 07/30/23 07/31/23 Range/Units 17:07 20:20 05:45 POC Glucose (mg/dL) 291 H 151 H (70-110) mg/dL Vitamin B12 >1800.0 H (200.0-944.0) pg/mL Assessment and Plan Plan: Acute hypoxemic respiratory failure, likely multifactorial, related to suspected exacerbation of diastolic congestive heart failure and acute COVID-19 infection. Chest CTA was negative for pulmonary embolism. the patient remains on room air oxygen for now Acute COVID-19 infection. completed decadron Acute non- ST elevation [place].currently family chest pain Multivessel coronary artery disease, recent left heart catheterization 05/02/2022, showed 40% stenosis of the left main, 80% stenosis of the mid LAD, 40% stenosis of left circumflex, 90% stenosis of the RCA, and 100% stenosis of the PDA. Diabetes mellitus2, insulin-dependent. Hyperlipidemia. Benign essential hypertension. Fall. Obesity with a BMI of 32.5 kg/m. Remote ex-smoker. Generalized weakness more so involving the upper extremities, and the patient is known to have multilevel cervical spondylosis with various degrees of neural foraminal and central canal stenosis. Plan: MRI of the C-spine shows no significant cervical canal stenosis and is consistent with degenerative arthritic changes. Awaiting MRI of the thoracic spine. Patient is stable on 2 L of oxygen by nasal cannula, further weaned down to room air oxygen Provide incentive spirometer increase mobility as tolerated. May need rehabilitation at time of discharge maintain reduction therapy at time of discharge and the patient currently on 2 L of oxygen by nasal cannula. Continue rest of the medications Full CODE STATUS Continue to follow
[2023-07-31] MEDS ORDERED: GABAPENTIN 300 MG CAP PO SCH (16:00)
--- NOTE | 2023-07-31 16:06 | MR ---
EXAMINATION TYPE: MR thoracic spine wo/w con DATE OF EXAM: 07/31/2023 COMPARISON: None HISTORY: Upper extremity weakness, fall. CONTRAST: Performed utilizing 10 mL intravenous Gadavist gadolinium contrast. TECHNIQUE: Multiplanar, multiecho imaging on a 3.0 Daksha magnet is performed through the thoracic spi ne. Spinal cord maintains normal signal through its visualized course. Vertebral body alignment is normal. Vertebral body heights are preserved. Disc heights are preserved. Disc hydration levels are preserved. No spinal canal stenosis is evident. Following contrast, no suspicious enhancement is evident. IMPRESSION: 1. No acute abnormality MRI thoracic spine.
[2023-07-31 16:52] LABS: Glucose,Whole Blood 201 mg/dL (70-110)
--- NOTE | 2023-07-31 17:42 | P.PN ---
Progress Note - Text Progress Note Date: 07/31/23 Patient was evaluated earlier by our orthopedic service. Cervical spine MRI was with Dr. Mcgee. Testing demonstrate mild areas of neural foraminal and cervical stenosis, no acute myelopathy noted. I was able to thoracic spine MRI results and reports, no acute lesions noted. There was no sensory Areas of stenosis present. Patient may follow-up in the outpatient setting with Dr. Mcgee for recheck symptoms. Patient may also follow-up with Dr. George in the outpatient setting with regards to the left shoulder, and consideration his fall this may represent more of an acute rotator cuff pathology with his range of motion difficulty. Please contact her orthopedic service there are any further questions.
== END 2023-07-31 18:12 | DRG 177 ==
LOC: EC 18:23 → 2SICU 21:53 → 4SSUR 07-25 17:48
PROVIDERS: ADMIT Family Medicine; ATTEND Family Medicine
DX: U07.1 COVID-19 (principal); I21.09 ST elevation (STEMI) myocardial infarction involving other coronary artery of anterior wall; J96.01 Acute respiratory failure with hypoxia; I50.33 Acute on chronic diastolic (congestive) heart failure; J18.9 Pneumonia, unspecified organism; J12.82 Pneumonia due to coronavirus disease 2019; I63.29 Cerebral infarction due to unspecified occlusion or stenosis of other precerebral arteries; I63.81 Other cerebral infarction due to occlusion or stenosis of small artery; J44.0 Chronic obstructive pulmonary disease with (acute) lower respiratory infection; I42.9 Cardiomyopathy, unspecified; I50.32 Chronic diastolic (congestive) heart failure; G45.9 Transient cerebral ischemic attack, unspecified; I11.0 Hypertensive heart disease with heart failure; E11.9 Type 2 diabetes mellitus without complications; E66.9 Obesity, unspecified; Z68.33 Body mass index [BMI] 33.0-33.9, adult; I65.23 Occlusion and stenosis of bilateral carotid arteries; Z79.4 Long term (current) use of insulin; Z79.899 Other long term (current) drug therapy; E78.5 Hyperlipidemia, unspecified; I25.10 Atherosclerotic heart disease of native coronary artery without angina pectoris; I45.10 Unspecified right bundle-branch block; H91.90 Unspecified hearing loss, unspecified ear; M19.012 Primary osteoarthritis, left shoulder; M47.812 Spondylosis without myelopathy or radiculopathy, cervical region; Z28.310 Unvaccinated for COVID-19; Z79.84 Long term (current) use of oral hypoglycemic drugs; M72.0 Palmar fascial fibromatosis [Dupuytren]; I25.2 Old myocardial infarction; H02.402 Unspecified ptosis of left eyelid; M48.02 Spinal stenosis, cervical region; R29.6 Repeated falls; I08.1 Rheumatic disorders of both mitral and tricuspid valves; M75.90 Shoulder lesion, unspecified, unspecified shoulder; Z79.02 Long term (current) use of antithrombotics/antiplatelets; Z86.73 Personal history of transient ischemic attack (TIA), and cerebral infarction without residual deficits; Z95.5 Presence of coronary angioplasty implant and graft; W18.30XA Fall on same level, unspecified, initial encounter; Y92.009 Unspecified place in unspecified non-institutional (private) residence as the place of occurrence of the external cause; Z68.32 Body mass index [BMI] 32.0-32.9, adult; Z79.82 Long term (current) use of aspirin; Z91.81 History of falling
CPT/HCPCS: 36415; 70450; 70551; 71045; 71275; 72125; 72156; 72157; 80048; 80053; 80061; 82550; 82607; 82746; 83036; 83519; 83735; 83880; 84145; 84443; 84484; 85025; 85610; 85730; 87040; 87449; 87635; 93005; 93308; 93880; 94660; 94760

== ENCOUNTER → 2023-12-12 | Outpatient (CLI) | payer MEDICARE ==
--- NOTE | 2023-12-12 16:51 | US ---
EXAMINATION TYPE: US venous doppler duplex LE BI DATE OF EXAM: 12/12/2023 3:41 PM COMPARISON: NONE CLINICAL INDICATION: Male, 83 years old with history of I83.893 VARICOSE VEINS R60.0 EDEMA; No hx of DVT. Edema. SIDE PERFORMED: Bilateral TECHNIQUE: The lower extremity deep venous system is examined utilizing real time linear array sonog ritu with graded compression, doppler sonography and color-flow sonography. VESSELS IMAGED: Common Femoral Vein Deep Femoral Vein Greater Saphenous Vein * Femoral Vein Popliteal Vein Small Saphenous Vein * Proximal Calf Veins (* superficial vessels) Right Leg: No evidence of DVT. Left Leg: No evidence of DVT. IMPRESSION: 1. Bilateral lower extremity ultrasound negative for deep venous thrombosis.
== END | disposition home or self-care (01) ==
LOC: RADUSWWP 15:03
PROVIDERS: ATTEND Psychiatry & Neurology Neurology
DX: I83.893 Varicose veins of bilateral lower extremities with other complications (principal); R60.0 Localized edema
CPT/HCPCS: 93970